=== PATIENT | female | born 1935 | race Hispanic/Latino ===

== ENCOUNTER 2018-10-30 17:03 | Inpatient (IN) | payer MEDICARE, OTHER ==
[~2018-10-30] VITALS: Ht 154.9 cm; Wt 57.3 kg
--- OUTSIDE RECORDS SUMMARY | 2018-10-30 17:06 | XMS REPORT | CCD ---
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
--- OUTSIDE RECORDS SUMMARY | 2018-10-30 17:06 | XMS REPORT | Summary of Care ---
Author Organization Unknown Address Unknown Phone Unavailable Encounter [facility] Encntr_chelle([facility]) [id number] Date(s): 03/05/14 - 03/05/14 [facility] Outpatient Imaging - [address] [address]- [place] Discharge Disposition: Home Physician Attending: Rafy Loya MD Reason for Visit [phone] - [place] [phone] - [facility] Problem List Condition Effective Dates Status Health Status Informant Arthritis(Confirmed) Resolved Epigastric Resolved pain(Confirmed) Hypertension(Confirm Resolved ed) Reflux(Confirmed) Resolved Allergies, Adverse Reactions, Alerts Substance Reaction Severity Status NKDA Active Medications No data available for this section Medications Administered During Your Visit No data available for this section Immunizations No data available for this section
--- OUTSIDE RECORDS SUMMARY | 2018-10-30 17:06 | XMS REPORT | CCD ---
Author Author Auto Generated Organization [facility] Outpatient Imaging [place] Address Unknown Phone Unavailable Care Team Providers Care Thread Dresser Name Role Phone Rafy Loya CP Allergies, Adverse Reactions, Alerts Substance Reaction Status NKDA Active
--- OUTSIDE RECORDS SUMMARY | 2018-10-30 17:06 | XMS REPORT | Summary of Care ---
Author Author [facility] Outpatient Imaging - [place] Organization [facility] Outpatient Imaging - [place] Address Unknown Phone Unavailable Encounter HQ Encntr_chelle([facility]) [id number] Date(s): 07/15/15 - 07/15/15 [facility] Outpatient Imaging - [place] [address] [place] [address]- [facility] [phone] Discharge Disposition: Home Attending Physician: Rafy Loya MD Vital Signs No data available for this section Problem List Condition Effective Dates Status Health Status Informant Arthritis(Confirmed) Resolved Epigastric Resolved pain(Confirmed) Hypertension(Confirm Resolved ed) Reflux(Confirmed) Resolved Allergies, Adverse Reactions, Alerts Substance Reaction Severity Status NKDA Active Medications No data available for this section Results No data available for this section Immunizations No data available for this section Procedures Procedure Date Related Diagnosis Body Site Breast biopsy and related procedures1 Cataract extraction2 Operation3 1right breast 2OU 3nasal sugery Social History No data available for this section Assessment and Plan No data available for this section
--- OUTSIDE RECORDS SUMMARY | 2018-10-30 17:06 | XMS REPORT | Summary of Care ---
Author Author [facility] Outpatient Imaging - [place] Organization [facility] Outpatient Imaging - [place] Address Unknown Phone Unavailable Encounter HQ Yvonnentr_chelle([facility]) [id number] Date(s): 10/27/18 - 10/27/18 [facility] Outpatient Imaging - [place] [address] [place] [phone] Discharge Disposition: Home or Self Care Attending Physician: Rafy Loya MD Referring Physician: Rafy Loya MD Vital Signs No [...] Procedures Procedure Date Related Diagnosis Body Site Status Breast biopsy and related procedures1 Completed Cataract extraction2 Completed Operation3 Completed 1right breast 2OU 3nasal sugery Social History No data available for this section Assessment and Plan No data available for this section
--- OUTSIDE RECORDS SUMMARY | 2018-10-30 17:06 | XMS REPORT | CCD ---
Author Author Auto Generated Organization [facility] Outpatient Imaging [place] Address Unknown Phone Unavailable Care Team Providers Care Manager Rfid Name Role Phone Rafy Loya CP Allergies, Adverse Reactions, Alerts Substance Reaction Status NKDA Active
--- OUTSIDE RECORDS SUMMARY | 2018-10-30 17:06 | XMS REPORT | Summary of Care ---
Author Organization Unknown Address Unknown Phone Unavailable Encounter [facility] Encntr_chelle([place]) [id number] Date(s): 02/25/15 - 02/25/15 [facility] Outpatient Imaging - [place] [address] [place] [address]- [facility] [phone] Discharge Disposition: Home Physician Attending: Rafy Loya MD Vital Signs No data [...]
--- OUTSIDE RECORDS SUMMARY | 2018-10-30 17:06 | XMS REPORT | CCD ---
Author Author Auto Generated Organization [facility] Outpatient Imaging [place] Address Unknown Phone Unavailable Care Team Providers Care Vp Emerging Media Name Role Phone Rafy Loya CP Allergies, Adverse Reactions, Alerts Substance Reaction Status NKDA Active
--- OUTSIDE RECORDS SUMMARY | 2018-10-30 17:06 | XMS REPORT | CCD ---
Author Author Auto Generated Organization [facility] Outpatient Imaging [place] Address Unknown Phone Unavailable Care Team Providers Care Block Engraver Name Role Phone Rafy Loya CP Allergies, Adverse Reactions, Alerts Substance Reaction Status NKDA Active
--- OUTSIDE RECORDS SUMMARY | 2018-10-30 17:06 | XMS REPORT | Continuity of Care Document ---
Author Author [facility] Interface Address Unknown Phone Unavailable Problems Problem Status Onset Date Classification Date Reported Comments Source R63.4 - ABNORMAL WEIGHT LOSS Active 07/09/2015 [facility] [place] V82.81 - SCREEN - OSTEOP Active 05/09/2015 [facility] [place] UNK Active 05/12/2013 [place]th[place] Resolved Problem 10/30/2018 [facility] [place] Epigastric pain Resolved Problem 10/30/2018 [facility] [place] Hypertension Resolved Problem 10/30/2018 [facility] [place] Reflux Resolved Problem 10/30/2018 [facility] [place] Medications Medication Details Route Status Patient Instructions Ordering Provider Order Date Source Allergies, Adverse Reactions, Alerts Substance Category Reaction Severity Reaction type Status Date Reported Comments Source Immunizations Immunization Date Given Site Status Last Updated Comments Source Results Order Name Results Value Reference Range Date Interpretation Comments Source Femur series DX Femur series DX EXAMINATION: 1. Right hip minimum 2 views 2. Right femur series HISTORY: M25.551 Pain in right hip; M79.604 Pain in right leg; R10.2 Pelvic and perineal pain; right hip and thigh pain; right hip arthritis; right knee arthritis FINDINGS: AP view of the pelvis, frontal and frog-leg lateral views of the right hip and 2 views of the right femur on multiple radiographs are performed without comparison. There are no fractures or dislocations. Both femoral heads are well-seated within the acetabula. There is mild to moderate bilateral hip osteoarthritis with asymmetric joint space narrowing. 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 The visualized sacral ala appear intact. There is multilevel degenerative changes of the lower lumbar spine partially visualized. There is no aggressive osteolytic or osteoblastic lesion of the right femur identified. There is severe lateral and patellofemoral compartment predominant, tricompartmental knee osteoarthritis with genu valgus alignment. IMPRESSION: 1. No acute fracture or dislocation of the pelvis, bilateral hips, or right femur identified. 2. Mild to moderate bilateral hip osteoarthritis. 3. Severe lateral and patellofemoral compartment predominant, tricompartmental right knee osteoarthritis with right genu valgus alignment. 4. Lower lumbar spondylosis. 10/27/2018 - - Read by: Jasmeet Shepard MD Dictated Date/time: 10/27/18 12:25 Electronically Signed by: Jasmeet Shepard MD 10/27/18 12:29 FINAL REPORT COSMO Torres Hip 2/3 views uni w pelvis DX Hip 2/3 views uni w pelvis DX EXAMINATION: 1. Right hip minimum 2 views 2. Right femur series HISTORY: M25.551 Pain in right hip; M79.604 Pain in right leg; R10.2 Pelvic and perineal pain; right hip and thigh pain; right hip arthritis; right knee arthritis FINDINGS: AP view of the pelvis, frontal and frog-leg lateral views of the right hip and 2 views of the right femur on multiple radiographs are performed without comparison. There are no fractures or dislocations. Both femoral heads are well-seated within the acetabula. There is mild to moderate bilateral hip osteoarthritis with asymmetric joint space narrowing. 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 The visualized sacral ala appear intact. There is multilevel degenerative changes of the lower lumbar spine partially visualized. There is no aggressive osteolytic or osteoblastic lesion of the right femur identified. There is severe lateral and patellofemoral compartment predominant, tricompartmental knee osteoarthritis with genu valgus alignment. IMPRESSION: 1. No acute fracture or dislocation of the pelvis, bilateral hips, or right femur identified. 2. Mild to moderate bilateral hip osteoarthritis. 3. Severe lateral and patellofemoral compartment predominant, tricompartmental right knee osteoarthritis with right genu valgus alignment. 4. Lower lumbar spondylosis. 10/27/2018 - - Read by: Jasmeet Shepard MD Dictated Date/time: 10/27/18 12:25 Electronically Signed by: Jasmeet Shepard MD 10/27/18 12:29 FINAL REPORT MYRON Torres Bone Density DXA [employer] MA Bone Density DXA [employer] MA - Bone Density DXA [employer] MA BONE DENSITY EVALUATION: 12/13/2015 CLINICAL DATA: Post menopausal. FINDINGS: Bone density evaluation was performed 12/13/2015 on the AP L1-L2 region of spine using a Hologic unit. The BMD average for the exam is 0.777 g/cm2. The T-score is -1.80 and the Z-score is 0.60. This matches the World Health Organization's criteria for osteopenia and places the patient at a medium risk for fracture. An additional bone density evaluation was performed 12/13/2015 on the right femur neck using a Hologic unit. The BMD average for the exam is 0.671 g/cm2. The T-score is -1.60 and the Z-score is 0.50. This matches the World Health Organization's criteria for osteopenia and places the patient at a medium risk for fracture. An additional bone density evaluation was performed 12/13/2015 on the right hip using a Hologic unit. The BMD average for the exam is 0.734 g/cm2. The T-score is -1.70 and the Z-score is 0.30. This matches the World Health Organization's criteria for osteopenia and places the patient at a medium risk for fracture. An additional bone density evaluation was performed 12/13/2015 on the left femur neck using a Hologic unit. The BMD average for the exam is 0.638 g/cm2. The T- score is -1.90 and the Z-score is 0.20. This matches the World Health Organization's criteria for osteopenia and places the patient at a medium risk for fracture. An additional bone density evaluation was performed 12/13/2015 on the left hip using a Hologic unit. The BMD average for the exam is 0.707 g/cm2. The T-score is -1.90 and the Z-score is 0.10. This matches the World Health Organization's criteria for osteopenia and places the patient at a medium risk for fracture. IMPRESSION: OSTEOPENIA Patient is at medium risk for fracture. This exam was dictated and interpreted by [id number] for COS[facility] Torres. Daquan Zhang M.D., cm/betty:12/16/2015 12:44:20 Low Pressure Boiler Tender: Marina COVARRUBIAS)(Lillie), [facility] 12/13/2015 - - Read by: Maged Jacobs MD Dictated Date/time: 12/16/15 12:44 Electronically Signed by: Maged Jacobs MD 12/16/15 12:44 FINAL REPORT MH MYRON Dowda Abdomen w/wo IV contrast CT Abdomen w/wo IV contrast CT CT ABDOMEN WITH CONTRAST HISTORY: 80 year female with weight loss. PROCEDURE: CT scan of the abdomen with contrast was done. Creatinine level was 0.8 mg/dl and eGFR was 71 ml/min. Dilute oral and IV contrast, 100 cc Omnipaque 300 used. Postcontrast and delayed series were obtained with coronal and sagittal reformats. The CT dose was 1083 mGy/cm. Comparison: 07/27/2011. Abdomen findings: The bases of both lung appear normal. The liver has normal morphology and homogeneous attenuation.The gallbladder has normal morphology. The pancreas has normal attenuation and dimensions. The spleen has normal volume and expected enhancement. The stomach, duodenum, small bowel, appendiceal region and colon are normal. Kidneys in contrast and delayed phase appear normal, no hydronephrosis or lithiasis seen. The left kidney is the lateral simple cortical cyst 4.3 x 3.8 cm, prior maximal dimension was 3.6 cm. The adrenals have normal morphology. The abdominal aorta and iliac vessels appear normal in caliber. There is no retroperitoneal adenopathy. Osseous structures has osteoarthritic changes with disc disease more significant at L2-L3. There is grade 1 retrolisthesis of L2 on L3 IMPRESSION: No acute or enhancing abdominal abnormality noted. Liver, gallbladder and pancreas are unremarkable. Left renal simple 4.3 cm simple cyst, similar compared to prior Osteoarthritis and disc disease throughout the lumbar spine. 07/15/2015 - - Read by: Raffaele Roa MD Dictated Date/time: 07/15/15 13:23 Electronically Signed by: Raffaele Roa 07/15/15 13:41 FINAL REPORT MYRON Torres Digital Mammo Screening Mohinder MA Digital Mammo Screening Mohinder MA - DIGITAL MAMMO SCREENING MOHINDER MA BILATERAL DIGITAL SCREENING MAMMOGRAM WITH CAD: 02/25/2015 CLINICAL: Routine. Current study was evaluated with a Computer Aided Detection (CAD) system. Comparison is made to exam dated: 03/05/2014 mammogram - [facility]. There are scattered fibroglandular densities in both breasts. No significant masses, calcifications, or other findings are seen in either breast. There has been no significant interval change. IMPRESSION: NEGATIVE There is no mammographic evidence of malignancy. A 1 year screening mammogram is recommended. Dr. Wilton Zuñiga M.D. eoc/penrad:02/26/2015 08:45:33 Low Pressure Boiler Tender: Marina Hernandez RT(R)(Lillie), [facility] This exam was dictated and interpreted by [id number] for COSMO Vega. letter sent: Normal exam Mammogram BI-RADS: 1 Negative 02/25/2015 - - Read by: Wilton Zuñiga MD Dictated Date/time: 02/26/15 08:45 Electronically Signed by: Wilton Zuñiga MD 02/26/15 08:45 FINAL REPORT COSMO [place] Breast US Breast US - DIGITAL MAMMO DX MOHINDER MA - BREAST US/L BILATERAL DIGITAL DIAGNOSTIC MAMMOGRAM WITH CAD AND TARGETED LEFT ULTRASOUND: 03/05/2014 CLINICAL: Mammographic Abnormality. Current study was evaluated with a Computer Aided Detection (CAD) system. Comparison is made to exams dated: 06/13/2013 ultrasound biopsy, 06/13/2013 aspiration, 06/13/2013 aspiration - [facility], 05/17/2013 ultrasound, 05/17/2013 mammogram and 04/12/2013 mammogram - [facility]. There are scattered fibroglandular densities in both breasts. The mass in the right breast 2 o'clock middle depth is no longer seen. This is demonstrated by prior aspiration. There is a 6 mm oval cyst with a circumscribed margin in the left breast at 12 o'clock middle depth. Targeted ultrasound demonstrates a subcentimeter oval cyst at 12 o'clock middle depth. This oval cyst is anechoic. No other significant masses or calcifications are seen in either breast on the mammogram or targeted ultrasound. IMPRESSION: BENIGN, TARGETED ULTRASOUND BENIGN The 6 mm oval cyst in the left breast at 12 o'clock middle depth is benign. Biopsy clip is seen within the right breast 2 o'clock position. The aspirated cyst is no longer visualized. There is no mammographic or targeted sonographic evidence of malignancy. A screening mammogram in one year is recommended. Dr. Wm Wright M.D. sl/:03/05/2014 12:16:12 Low Pressure Boiler Tender: Yuliana COVARRUBIAS)(Lillie), [facility] This exam was dictated and interpreted by [id number] for COSMO Torres. letter sent: Bilateral Benign Mammogram BI-RADS: 2 Benign Ultrasound BI-RADS: 2 Benign 03/05/2014 - - Read by: Wm Wright MD Dictated Date/time: 03/05/14 12:16 Electronically Signed by: Wm Wright MD 03/05/14 12:16 FINAL REPORT COSMO Torres Digital Mammo DX Mohinder MA Digital Mammo DX Mohinder MA - DIGITAL MAMMO DX MOHINDER MA - BREAST US/L BILATERAL DIGITAL DIAGNOSTIC MAMMOGRAM WITH CAD AND TARGETED LEFT ULTRASOUND: 03/05/2014 CLINICAL: Mammographic Abnormality. Current study was evaluated with a Computer Aided Detection (CAD) system. Comparison is made to exams dated: 06/13/2013 ultrasound biopsy, 06/13/2013 aspiration, 06/13/2013 aspiration - [facility], 05/17/2013 ultrasound, 05/17/2013 mammogram and 04/12/2013 mammogram - [facility]. There are scattered fibroglandular densities in both breasts. The mass in the right breast 2 o'clock middle depth is no longer seen. This is demonstrated by prior aspiration. There is a 6 mm oval cyst with a circumscribed margin in the left breast at 12 o'clock middle depth. Targeted ultrasound demonstrates a subcentimeter oval cyst at 12 o'clock middle depth. This oval cyst is anechoic. No other significant masses or calcifications are seen in either breast on the mammogram or targeted ultrasound. IMPRESSION: BENIGN, TARGETED ULTRASOUND BENIGN The 6 mm oval cyst in the left breast at 12 o'clock middle depth is benign. Biopsy clip is seen within the right breast 2 o'clock position. The aspirated cyst is no longer visualized. There is no mammographic or targeted sonographic evidence of malignancy. A screening mammogram in one year is recommended. Dr. Wm Wright M.D. sl/:03/05/2014 12:16:12 Low Pressure Boiler Tender: Yuliana MEJIAS(Adriana)(Lillie), [facility] This exam was dictated and interpreted by [id number] for COS[facility] Torres. letter sent: Bilateral Benign Mammogram BI-RADS: 2 Benign Ultrasound BI-RADS: 2 Benign 03/05/2014 - - Read by: Wm Wright MD Dictated Date/time: 03/05/14 12:16 Electronically Signed by: Wm Wright MD 03/05/14 12:16 FINAL REPORT MYRON Torres US Guided Needle Core BX Uni Mammo Clips MA US Guided Needle Core BX Uni Mammo Clips MA - US GUIDED NEEDLE CORE BX UNI MAMMO CLIPS MA/R ULTRASOUND GUIDED BIOPSY RIGHT BREAST WITH MARKING DEVICE INSERTED AND POST DIGITAL MAMMOGRAPHIC IMAGIN06/13/2013 CLINICAL: Abn Mamma. Correlation is made to exams dated: 05/17/2013 ultrasound, 05/17/2013 mammogram, 04/12/2013 mammogram - [facility] and 07/17/2008 mammogram - [facility]. An ultrasound guided biopsy using real-time ultrasound was performed for the oval cystic mass located in the right breast at 2 o'clock middle depth 6 cm from the nipple. This was described on the previous mammography and ultrasound reports. The skin was prepped in the usual manner. Local anesthetic was administered to the access site. The abnormality was approached from the lateral aspect. A 14 gauge biopsy needle was placed adjacent to the abnormality under ultrasound guidance. Once the needle was documented to be in the correct location, three cores were obtained using an Achieve automated firing device. A titanium clip was inserted into the biopsy cavity. A skin adhesive and a sterile dressing were applied to the access site. Post procedure digital mammographic imaging demonstrates the clip at the targeted area. The specimens were sent to the laboratory for pathological analysis. The lesion disappeared after the core biopsy, suggesting cystic nature of this lesion. IMPRESSION: ULTRASOUND GUIDED BIOPSY BENIGN Ultrasound guided biopsy of the cystic mass in the right breast at 2 o'clock middle depth 6 cm from the nipple was successful with no apparent post procedure complications. Pathology indicates benign apocrine metaplasia (AM), cyst (BC) and usual ductal hyperplasia (DHU). Pathology results are concordant with mammography and ultrasound findings. A follow-up mammogram and an ultrasound in 6 months is recommended to demonstrate stability. Kalpana Godoy M.D. Additional Observers: Nivia Banegas M.D., David plunkett/betty:06/14/2013 16:22:11 Low Pressure Boiler Tender: Olivia Cox [facility] This exam was dictated and interpreted by [id number] for [facility]. letter sent: Post Bx Results 06/13/2013 - - Read by: Kalpana Godoy Dictated Date/time: 06/14/13 16:22 Electronically Signed by: Kalpana Godoy MD PHD 06/14/13 16:22 FINAL REPORT MYRON Beatty US Guided Cyst Aspiration Uni MA US Guided Cyst Aspiration Uni MA - US GUIDED CYST ASPIRATION UNI MA/R ULTRASOUND GUIDED ASPIRATION RIGHT BREAST: 06/13/2013 CLINICAL: 793.80 Abnormal Mammogram, Unspecified. Correlation is made to exams dated: 05/17/2013 ultrasound, 05/17/2013 mammogram, 04/12/2013 mammogram - [facility] and 07/17/2008 mammogram - [facility]. An aspiration was performed for the 9 mm oval cyst located in the right breast at 2 o'clock middle depth 6 cm from the nipple. This was described on the previous mammography and ultrasound reports. The skin was prepped in the usual manner. Local anesthetic was administered to the access site. The abnormality was approached from the lateral aspect. A 18 gauge needle was percutaneously placed into the abnormality under ultrasound guidance. Once the needle was documented to be in the correct location, bloody fluid was aspirated. This cyst did not resolve after the aspiration and core biopsy was performed next. Please see seperate report. IMPRESSION: ASPIRATION BENIGN Aspiration of the 9 mm cyst in the right breast middle depth was successful with no apparent post procedure complications. Pathology indicates debris only and unsatisfactory sample. Core biopsy performed following aspiration showed benign cyst, which is concordant with mammography and ultrasound findings. Please see core biopsy report. A follow-up mammogram and an ultrasound in 6 months is recommended to demonstrate stability. Kalpana Godoy M.D. hh/:06/16/2013 10:56:27 Low Pressure Boiler Tender: Olivia Cox [facility] This exam was dictated and interpreted by [id number] for [facility]. letter sent: Post Bx Results 06/13/2013 - - Read by: Kalpana Godoy Dictated Date/time: 06/16/13 10:56 Electronically Signed by: Kalpana Godoy MD PHD 06/16/13 10:56 FINAL REPORT MYRON Beatty US Guided Cyst Aspiration Uni MA US Guided Cyst Aspiration Uni MA - US GUIDED CYST ASPIRATION UNI MA/R ULTRASOUND GUIDED ASPIRATION RIGHT BREAST: 06/13/2013 CLINICAL: 793.80 Abnormal Mammogram, Unspecified. Correlation is made to exams dated: 05/17/2013 ultrasound, 05/17/2013 mammogram, 04/12/2013 mammogram - [facility] and 07/17/2008 mammogram - [facility]. An aspiration was performed for the 8 mm oval cyst located in the right breast at 4 o'clock posterior depth 7 cm from the nipple. This was described on the previous mammography and ultrasound reports. The skin was prepped in the usual manner. Local anesthetic was administered to the access site. The abnormality was approached from the lateral aspect. A 20 gauge needle was percutaneously pl aced into the abnormality under ultrasound guidance. Once the needle was documented to be in the correct location, serosanguin fluid was aspirated. A sterile dressing was applied to the access site. The aspirated fluid was sent for cytological analysis. IMPRESSION: ASPIRATION BENIGN Aspiration of the 8 mm cyst in the right breast posterior depth was successful with no apparent post procedure complications. Pathology indicates benign cyst (BC). Pathology results are concordant with mammography and ultrasound findings. A follow-up mammogram and an ultrasound in 6 months is recommended to demonstrate stability. Kalpana plunkett/betty:06/16/2013 10:40:20 Low Pressure Boiler Tender: Olivia Cox [facility] This exam was dictated and interpreted by [id number] for [facility]. letter sent: Post Bx Results 06/13/2013 - - Read by: Kalpana Godoy Dictated Date/time: 06/16/13 10:40 Electronically Signed by: Kalpana Godoy MD PHD 06/16/13 10:40 [facility] Vital Sign[facility] Vital Sign Value Date Comments Source Encounters Location Location Details Encounter Type Encounter Number Reason For Visit Attending Provider ADM Date DC Date Status Source [facility] [place] [facility] [id number] Rafy Cruz 03/05/2014 03/06/2014 [facility] [place] [facility] [place] [facility] [id number] Rafy Cruz 02/25/2015 02/26/2015 [facility] [place] [facility] [place] [facility] [id number] Rafy Cruz 07/15/2015 07/16/2015 [facility] [place] [facility] [place] [facility] [id number] Rafy Cruz 12/13/2015 12/14/2015 [facility] [place] [facility] [place] [facility] [id number] Rafy Cruz 10/27/2018 10/28/2018 [facility] [place] [facility] [id number] [facility] Procedures Procedure Code Date Perfomer Comments Source Breast biopsy and related procedures<sup>1</sup> [id number] right breast [facility] [place] Cataract extraction<sup>2</sup> [id number] OU [facility] [place] Operation<sup>3</sup> [id number] nasal sugery [facility] [place]
--- OUTSIDE RECORDS SUMMARY | 2018-10-30 17:06 | XMS REPORT | Summary of Care ---
Author Author [facility] [place] Organization [facility] [place] Address Unknown Phone Unavailable Encounter HQ Encntr_aliquinn(FIN) [id number] Date(s): 12/13/15 - 12/13/15 [facility] [place] [address] [place] [address]- [facility] [phone] Discharge Disposition: Home Attending Physician: Rafy Loya [...]
[2018-10-30] MEDS ORDERED: SODIUM CHLORIDE 0.9% 1000ML 1,000 ML IV STA (17:29)
[2018-10-30] MEDS ORDERED: ONDANSETRON HCL INJ 2MG/ML 2ML 2 MG/ML VIAL IV NR (17:30)
[2018-10-30] MEDS ORDERED: HYOSCYAMINE 0.125 MG TAB PO NR (17:30)
[2018-10-30 18:48] LABS: BASOPHILS # (AUTO) 0.1 (0.0-0.1); BASOPHILS % 0.5 % (0.0-1.0); EOSINOPHILS # (AUTO) 0.2 (0.0-0.4); EOSINOPHILS % 2.5 % (0.0-6.0); HEMATOCRIT 34.5 % (34.2-44.1); HEMOGLOBIN 11.4 g/dL (12.0-16.0); LYMPHOCYTES # (AUTO) 1.8 (1.0-3.2); LYMPHOCYTES % 19.6 % (18.0-39.1); MEAN CORPUSCULAR VOLUME 96.9 fL (81-99); MONOCYTES # (AUTO) 0.7 (0.2-0.8); MONOCYTES % 7.5 % (4.4-11.3); NEUTROPHILS # (AUTO) 6.5 (2.1-6.9); NEUTROPHILS % 69.5 % (38.7-80.0); PLATELET COUNT 202 x10e3/uL (140-360); RED BLOOD COUNT 3.56 x10e6/uL (3.6-5.1); RED CELL DISTRIBUTION WIDTH 12.5 % (11.7-14.4)
[2018-10-30 19:01] LABS: INR 1.01; PROTHROMBIN TIME 14.2 seconds (11.9-14.5)
[2018-10-30 19:02] LABS: PARTIAL THROMBOPLASTIN TIME 30.1 seconds (23.8-35.5)
[2018-10-30 19:05] LABS: ALANINE AMINOTRANSFERASE 6 IU/L (0-55); ALBUMIN 3.8 g/dL (3.5-5.0); ALBUMIN/GLOBULIN RATIO 0.9 (0.8-2.0); ALKALINE PHOSPHATASE 68 IU/L (40-150); BLOOD UREA NITROGEN 25 mg/dL (7-26); BUN/CREATININE RATIO 30 (6-25); CALCIUM 9.7 mg/dL (8.4-10.2); CARBON DIOXIDE 25 mmol/L (22-29); CHLORIDE 105 mmol/L (98-107); CREATINE KINASE 242 IU/L (29-168); CREATININE, SERUM 0.83 mg/dL (0.57-1.11); EST GLOMERULAR FILTRATION RATE > 60 ML/MIN (60-); GLUCOSE 98 mg/dL (74-118); SODIUM 141 mmol/L (136-145)
--- NOTE | 2018-10-30 19:21 | Diagnostic Imaging Report ---
Exam: KUB - 3 views Clinical History: Abdominal pain. Comparison: None. Findings: There is abundant stool throughout the colon. The rectum is dilated with stool measuring up to 8.7 cm. Nonobstructive bowel gas pattern. No acute osseous abnormality. Moderate degenerative changes of the lateral hips and pubic symphysis. Diffuse osteopenia. Impression: Abundant stool in the colon, with rectal dilatation measuring up to 8.7 cm suggestive of fecal impaction. Nonobstructive bowel gas pattern. Signed by: Dr. Jose Juan Kingston MD on 10/30/2018 7:18 PM
[2018-10-30] MEDS ORDERED: IOPAMIDOL 370 MG/ML 200 ML INFUS..BTL INJ ONE (19:46)
[2018-10-30] MEDS ORDERED: SODIUM CHLORIDE 0.9% 50ML 50 ML ONE (19:46)
[2018-10-30] MEDS ORDERED: SODIUM CHLORIDE 0.9% 1000ML 1,000 ML IV ONE (20:15)
[2018-10-30] MEDS ORDERED: ONDANSETRON HCL INJ 2MG/ML 2ML 2 MG/ML VIAL IV PRN (20:15)
--- OUTSIDE RECORDS SUMMARY | 2018-10-30 21:29 | XMS REPORT ---
Author Author [facility] Address Unknown Phone Unavailable Care Team Providers Care Solidworks Drafter Name Role Phone Alejandro FAULKNER Unavailable Unavailable Problems This patient has no known problems. Allergies, Adverse Reactions, Alerts This patient has no known allergies or adverse reactions. Medications This patient has no known medications. Results Test Description Test Time Test Comments Text Results Atomic Results Result Comments ABDOMEN 2 VIEW 2018-10-30 19:15:00 [facility] [address] [address] Patient Name: EDDI LOYA MR #: [id number] : 1935 Age/Sex: 83/F Req #: [id number] Adm Physician: Ordered by: MARIA ESTHER GARVEY NP Report #: [id number] Location: ER Room/Bed: Procedure: [id number] DX/ABDOMEN 2 VIEW Exam Date: 10/30/18 Exam Time: 1845 REPORT STATUS: Signed Exam: KUB - 3 views Clinical History: Abdominal pain. Comparison: None. Findings: There is abundant stool throughout the colon. The rectum is dilated with stool measuring up to 8.7 cm. Nonobstructive bowel gas pattern. No acute osseous abnormality. Moderate degenerative changes of the lateral hips and pubic symphysis. Diffuse osteopenia. Impression: Abundant stool in the colon, with rectal dilatation measuring up to 8.7 cm suggestive of fecal impaction. Nonobstructive bowel gas pattern. Signed by: Dr. Shaq Lopez MD on 10/30/2018 7:18 PM Dictated By: SHAQ LOPEZ MD 17 Transcribed By: CAPRICE on 10/30/181917 COPY TO: MARIA ESTHER GARVEY NP
[2018-10-30] MEDS: CEFTRIAXONE SOD 1 GM/NS 50 ML 50 ML IV SCH (21:39)
[2018-10-30] MEDS ORDERED: MINERAL OIL 132 ML BTL PR ONE (21:45)
[2018-10-30] MEDS ORDERED: MINERAL OIL 132 ML BTL PR PRN (21:45)
--- NOTE | 2018-10-30 21:55 | Diagnostic Imaging Report ---
EXAM: CT Abdomen and Pelvis WITH contrast INDICATION: ^ABD PAIN, DIARRHEA ^[id number] ^2009 COMPARISON: Same day abdominal x-ray. TECHNIQUE: Abdomen and pelvis were scanned utilizing a multidetector helical scanner from the lung base to the pubic symphysis after administration of IV contrast. Coronal and sagittal reformations were obtained. Dose modulation, iterative reconstruction, and/or weight based adjustment of the mA/kV was utilized to reduce the radiation dose to as low as reasonably achievable. Routine protocol was performed. Scan was performed when during portal venous phase. IV CONTRAST: 100 mL of Isovue-370 ORAL CONTRAST: Water COMPLICATIONS: None RADIATION DOSE: Total DLP: 178.12 mGy*cm Estimated effective dose: (DLP x 0.015 x size factor) mSv CTDIvol has been reviewed. It is below the limits set by the Radiation Protocol Committee (RPC). FINDINGS: LINES and TUBES: None. LOWER THORAX: Cardiomegaly. HEPATOBILIARY: No focal hepatic lesions. No biliary ductal dilation. GALLBLADDER: No radio-opaque stones or sludge. No wall thickening. SPLEEN: No splenomegaly. PANCREAS: No focal masses or ductal dilatation. ADRENALS: No adrenal nodules KIDNEYS/URETERS: Kidneys enhance symmetrically. No hydronephrosis. No renal mass. 4.9 cm left renal midpole cyst. Adjacent subcentimeter hypodensity, likely a cyst as well. No stones. GI TRACT: No abnormal distention or evidence of bowel obstruction. Rectal fecal impaction with mild wall thickening. There is large amount of stool throughout the rest of the colon. Appendix is not visualized. PELVIC ORGANS/BLADDER: Unremarkable. LYMPH NODES: No lymphadenopathy. VESSELS: Unremarkable. PERITONEUM / RETROPERITONEUM: No free air or fluid. BONES: Generalized demineralization. Grade 1 retrolisthesis of L5 in relation to L4. SOFT TISSUES: Unremarkable. IMPRESSION: 1. Constipation and rectal fecal impaction. 2. Mild rectal wall thickening, could represent proctitis. 3. Left renal cysts. Signed by: Dr. Christian Hyde MD on 10/30/2018 9:52 PM
[2018-10-30] MEDS ORDERED: SODIUM CHLORIDE 0.9% 1000ML 1,000 ML ONE (21:57)
[2018-10-30 22:00] LABS: CLARITY,URINE HAZY (CLEAR); COLOR,URINE YELLOW (YELLOW); LEUKOCYTE ESTERASE ,URINE TRACE (NEGATIVE); NITRITE,URINE NEGATIVE (NEGATIVE)
[2018-10-30 22:01] LABS: BILIRUBIN,URINE NEGATIVE (NEGATIVE); KETONES,URINE NEGATIVE (NEGATIVE); PROTEIN,URINE DIPSTICK NEGATIVE (NEGATIVE); URINE UROBILINOGEN 0.2 mg/dL (0.2 - 1)
[2018-10-30] MEDS ORDERED: LACTULOSE SYRUP 20 GM/30 ML UDC PO PRN (22:15)
[2018-10-30 22:30] VITALS: BP 145/67
--- NOTE | 2018-10-30 22:40 | NUR ---
RECEIVED REPORT FROM ELLIOTT IGLESIAS NURSE. PATIENT IN NO PAIN OR DISTRESS. SON IS AT THE BEDSIDE. CALL LIGHT WITHIN REACH. PATIENT HAD A BOWEL MOVEMENT SO HISTOLOGY TECH AND I CLEANED PATIENT.
[2018-10-30 22:41] LABS: RBC,URINE 0-5 /HPF (0-5)
[2018-10-30 22:42] LABS: BACTERIA,URINE FEW /HPF; EPITHELIAL CELLS,URINE FEW /LPF
[2018-10-30 23:00] VITALS: BP 145/67
[2018-10-31] VITALS (7 sets, daily range): BP systolic 127–152; BP diastolic 63–73
[2018-10-31 03:27] LABS: CREATINE KINASE MB 1.4 ng/mL (0-5.0)
--- NOTE | 2018-10-31 05:33 | NUR ---
Patient had two moderate amounts of liquid diarrhea. LOOPER OPERATOR and I cleaned the patient
[2018-10-31 05:57] LABS: BASOPHILS # (AUTO) 0.1 (0.0-0.1); BASOPHILS % 0.7 % (0.0-1.0); EOSINOPHILS # (AUTO) 0.1 (0.0-0.4); EOSINOPHILS % 1.5 % (0.0-6.0); HEMATOCRIT 30.3 % (34.2-44.1); HEMOGLOBIN 9.9 g/dL (12.0-16.0); LYMPHOCYTES # (AUTO) 1.6 (1.0-3.2); LYMPHOCYTES % 18.9 % (18.0-39.1); MEAN CORPUSCULAR HEMOGLOBIN 31.8 pg (28-32); MEAN CORPUSCULAR HGB CONC 32.7 g/dL (31-35); MEAN CORPUSCULAR VOLUME 97.4 fL (81-99); MONOCYTES # (AUTO) 0.6 (0.2-0.8); MONOCYTES % 6.7 % (4.4-11.3); NEUTROPHILS # (AUTO) 6.2 (2.1-6.9); NEUTROPHILS % 72.1 % (38.7-80.0); PLATELET COUNT 182 x10e3/uL (140-360); RED BLOOD COUNT 3.11 x10e6/uL (3.6-5.1)
[2018-10-31 06:31] LABS: CREATINE KINASE MB 1.5 ng/mL (0-5.0)
[2018-10-31 06:56] LABS: ALANINE AMINOTRANSFERASE 11 IU/L (0-55); ALBUMIN 3.2 g/dL (3.5-5.0); ALBUMIN/GLOBULIN RATIO 1.1 (0.8-2.0); ALKALINE PHOSPHATASE 61 IU/L (40-150); ANION GAP 11.2 mmol/L (8-16); BLOOD UREA NITROGEN 18 mg/dL (7-26); BUN/CREATININE RATIO 25 (6-25); CALCIUM 8.8 mg/dL (8.4-10.2); CARBON DIOXIDE 23 mmol/L (22-29); CHLORIDE 106 mmol/L (98-107); CREATININE, SERUM 0.71 mg/dL (0.57-1.11); EST GLOMERULAR FILTRATION RATE > 60 ML/MIN (60-); GLUCOSE 90 mg/dL (74-118); POTASSIUM 3.2 mmol/L (3.5-5.1); SODIUM 137 mmol/L (136-145)
[2018-10-31] MEDS ORDERED: LACTULOSE SYRUP 20 GM/30 ML UDC PO PRN (07:15)
--- NOTE | 2018-10-31 07:22 | NUR ---
Report given to oncoming nurse. Patient in no pain or distress. Call light within reach. Family member at bedside.
[2018-10-31] MEDS ORDERED: ONDANSETRON HCL INJ 2MG/ML 2ML 2 MG/ML VIAL IV PRN (07:30)
[2018-10-31] MEDS ORDERED: HYDRALAZINE HCL 20 MG/ML VIAL IV PRN (07:30)
[2018-10-31] MEDS: PANTOPRAZOLE SOD 40 MG TABEC PO SCH (07:30)
[2018-10-31] MEDS: CARBIDOPA/LEVODOPA 25/250 TAB PO SCH ×3 (09:00→20:35)
[2018-10-31] MEDS: POLYETHYLENE GLYCOL 3350 17 GM PACK PO SCH ×2 (09:00→17:00)
--- NOTE | 2018-10-31 09:07 | NUR ---
Notified Deborah LANDAVERDE regarding potassium level of 3.2
[2018-10-31] MEDS ORDERED: POTASSIUM CHLORIDE 20 MEQ TAB CR PO ONE (09:30)
[2018-10-31] MEDS: METOPROLOL TARTRATE 25 MG TAB PO SCH ×2 (10:15→17:00)
[2018-10-31] MEDS: SODIUM CHLORIDE 0.9% 1000ML 1,000 ML IV SCH ×2 (10:40→11:20)
--- NOTE | 2018-10-31 10:53 | NUR ---
SOCIAL WORK INITIAL ASSESSMENT Shirt Hemmer to bedside to discuss plan of care with patient/family. CM/SW role and care transitions discussed. Anticipated discharge plan discussed along with duration of care. CM/SW discussed patients right to make decisions in care. CM/SW work hours given. Patient lives: IN HOUSE WITH DAUGHTER Admit/Transfer: VIA ED POA/Emergency contact: KAYLIN [phone] Current/Previous Home Health: NONE PCP/Follow-up Care: VINCENZO Current/Previous DME: NONE Other Services: NONE Employment Status: RETIRED Areas of Concerns: NONE Referral Needs: NONE Education Needs: NONE IMM/LOPEZ given and signed (if applicable): UPON ADMISSION Goal for discharge: RETURN HOME WITH FAMILY CM/SW left business card at the bedside with contact information. Name and number was also written on the patients whiteboard. Patient verbalized understanding of discussion. CM will follow-up with ongoing discharge and transition of care needs.
[2018-10-31 14:56] LABS: CREATINE KINASE MB 1.2 ng/mL (0-5.0)
--- NOTE | 2018-10-31 15:19 | NUR ---
PER GRAND DAUGHTER AGUILAR ASHFORD [phone], THE FAMILY IS ALREADY SPEAKING WITH [facility] FOR CARE HOME PLACEMENT. SHE IS AWARE THE PT MAY HAVE TO GO MEDICAID PENDING, BUT WOULD LIKE IF SHE CAN GET SKILLED TO GET IN. IF PT MEETS CRITERIA THEY WANT [place] DUE TO GRANDFATHER WAS THERE AND THE ENTIRE FAMILY LIVES CLOSE AND WILL BE ABLE TO VISIT AT FACILITY. IF GOING TO [place] SHE IS MEDICARE AND WILL NEED 3 MIDNIGHT PRIOR STAY TO QUALIFY.
--- NOTE | 2018-10-31 15:24 | NUR ---
Nutrition Screen Note RD Recommendation for Physician: -Rec to initiate GI soft diet as medically appropriate -Consider Ensure Compact BID if PO is poor on regular diet -The patient meets criteria for MILD protein-calorie malnutrition. Plan of Care: RD following, monitoring for tolerance and adequacy Nutrition reason for involvement: Nutrition Risk Trigger MST Primary Diagnose(s): abdominal pain, diarrhea PMH: No H&P in chart Ht: 61in Wt: 112.56lb BMI: 21.3kg/m2 IBW: 105lb RD Assessment: (10/31) Chart reviewed. Labs and meds reviewed. 83yo F, who was admitted for abdominal pain and diarrhea x [address] abd/ pel showed constipation and rectal fecal impaction. Visited pt in the room. 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 Unknown weight loss. For today, pt denied any nausea or vomiting. No chewing or swallowing difficulty noted. Currently NPO. Will continue to monitor and follow. Please consult as needed. Current Diet: NPO Malnutrition Evaluation (10/31/2018) The patient meets criteria for MILD protein-calorie malnutrition. Energy intake: <75% of estimated energy requirements for >7 days Weight loss: Unknown per family Fat loss: Mild some clavicle protrusion Muscle loss: Mild slight temporal depression Supporting Evidence: Fluid accumulation: unable to evaluate Functional Status: no changes Diet Education Needs Assessment: Diet education not indicated. Nutrition Care Level: mod Signed: Adamaris Smith, MS, RD, LD
[2018-10-31] MEDS ORDERED: PEG (High)/E-LYTE SOLN 4,000 ML BTL PO ONE (15:45)
--- NOTE | 2018-10-31 19:05 | NUR ---
Received report from previous nurse. Patient is in no pain or distress. Telemonitor was placed on patient and patient is sinus rhythm. call light within reach.
[2018-10-31] MEDS: CEFTRIAXONE SOD 1 GM/NS 50 ML 50 ML IV SCH (20:35)
[2018-10-31] MEDS: ATORVASTATIN 40 MG TAB PO SCH (20:35)
[2018-11-01] VITALS (7 sets, daily range): BP systolic 124–185; BP diastolic 59–77
[2018-11-01] MEDS ORDERED: BISACODYL 5 MG TAB EC PO SCH (02:30)
[2018-11-01] MEDS ORDERED: BISACODYL 5 MG TAB EC PO ONE ×2 (04:00→04:30)
[2018-11-01 04:20] LABS: BASOPHILS % 0.4 % (0.0-1.0); EOSINOPHILS # (AUTO) 0.1 (0.0-0.4); EOSINOPHILS % 1.1 % (0.0-6.0); HEMATOCRIT 29.7 % (34.2-44.1); HEMOGLOBIN 10.1 g/dL (12.0-16.0); LYMPHOCYTES # (AUTO) 1.6 (1.0-3.2); LYMPHOCYTES % 15.9 % (18.0-39.1); MEAN CORPUSCULAR HEMOGLOBIN 32.7 pg (28-32); MEAN CORPUSCULAR VOLUME 96.1 fL (81-99); MONOCYTES # (AUTO) 0.7 (0.2-0.8); MONOCYTES % 7.1 % (4.4-11.3); NEUTROPHILS # (AUTO) 7.6 (2.1-6.9); NEUTROPHILS % 75.2 % (38.7-80.0); PLATELET COUNT 192 x10e3/uL (140-360); RED BLOOD COUNT 3.09 x10e6/uL (3.6-5.1); RED CELL DISTRIBUTION WIDTH 12.3 % (11.7-14.4)
[2018-11-01 04:32] LABS: ALBUMIN 3.2 g/dL (3.5-5.0); ALKALINE PHOSPHATASE 67 IU/L (40-150); ANION GAP 14.6 mmol/L (8-16); BILIRUBIN,DIRECT 0.4 mg/dL (0.0-0.5); BLOOD UREA NITROGEN 16 mg/dL (7-26); BUN/CREATININE RATIO 22 (6-25); CARBON DIOXIDE 22 mmol/L (22-29); CHLORIDE 107 mmol/L (98-107); CREATININE, SERUM 0.73 mg/dL (0.57-1.11); EST GLOMERULAR FILTRATION RATE > 60 ML/MIN (60-); GLUCOSE 70 mg/dL (74-118); MAGNESIUM 1.7 MG/DL (1.3-2.1); POTASSIUM 3.6 mmol/L (3.5-5.1); SODIUM 140 mmol/L (136-145)
[2018-11-01 04:41] LABS: ALANINE AMINOTRANSFERASE < 6 IU/L (0-55)
[2018-11-01 04:52] LABS: FREE T4 (FREE THYROXINE) 1.28 ng/dL (0.9-1.8); THYROID STIMULATING HORMONE 1.18 uIU/mL (0.350-4.940)
[2018-11-01 04:53] LABS: FERRITIN 91.4 ng/mL (4.63-204.00)
--- NOTE | 2018-11-01 04:54 | NUR ---
Patient had another bowel movement and finished half of the Colyte. Dr. Chanell Batista said if she finishes half Colyte do not give Citrate of Magnesia.
[2018-11-01] MEDS ORDERED: CITRATE OF MAGNESIA 300ML BOTTLE PO PRN (05:00)
[2018-11-01 05:15] LABS: FOLATE 14.4 ng/mL (7.0-15.4)
--- NOTE | 2018-11-01 07:04 | NUR ---
RECEIVED PATIENT RESTING IN BED. NO ACUTE DISTRESS NOTED. DAUGHTER AT BEDSIDE. CALL LIGHT WITHIN REACH. BED IN THE LOWEST POSITION.
--- NOTE | 2018-11-01 07:15 | NUR ---
Gave report to oncoming nurse. Patient in bed. Family at the bedside. Call light within reach. No pain or distress.
--- NOTE | 2018-11-01 07:54 | NUR ---
PAGED DR. Lillie BISHOP'S SERVICE TO GET ORDERS FOR PATIENT'S INFORM CONSENT FOR POSSIBLE COLONOSCOPY.
--- NOTE | 2018-11-01 08:40 | NUR ---
PATIENT IS NAUSEATED, REFUSING MIRALAX AT THIS TIME. SHE IS STILL TAKING GOLYTELY TO PREP FOR COLONOSCOPY.
[2018-11-01] MEDS: POLYETHYLENE GLYCOL 3350 17 GM PACK PO SCH ×2 (08:43→17:10)
[2018-11-01] MEDS: SODIUM CHLORIDE 0.9% 1000ML 1,000 ML IV SCH (08:50)
[2018-11-01] MEDS: PANTOPRAZOLE SOD 40 MG TABEC PO SCH (08:50)
[2018-11-01] MEDS: CARBIDOPA/LEVODOPA 25/250 TAB PO SCH ×3 (08:50→21:01)
[2018-11-01] MEDS: METOPROLOL TARTRATE 25 MG TAB PO SCH ×2 (08:50→17:10)
[2018-11-01] MEDS ORDERED: CITRATE OF MAGNESIA 300ML BOTTLE PO ONE (10:15)
--- NOTE | 2018-11-01 14:21 | NUR ---
PATIENT OFF UNIT FOR PROCEDURE AT THIS TIME.
--- NOTE | 2018-11-01 15:35 | NUR ---
PATIENT BACK TO UNIT AT THIS TIME. SHE IS IN STABLE CONDITION.
--- NOTE | 2018-11-01 15:51 | NUR ---
PER DR. Lillie BISHOP, PATIENT NEEDS. MANUAL FECAL DISIMPACTION.
[2018-11-01] MEDS ORDERED: BISACODYL 5 MG TAB EC PO NR ×3 (16:00→17:00)
--- NOTE | 2018-11-01 16:35 | NUR ---
ATTEMPTED MANUAL FECAL DISIMPACTION, PATIENT TOLERATED IT WELL.
[2018-11-01] MEDS ORDERED: PROPOFOL IV EMULSION 10 MG/ML 50 ML VIAL ONE (17:37)
[2018-11-01] MEDS ORDERED: CITRATE OF MAGNESIA 300ML BOTTLE PO NR (18:00)
--- NOTE | 2018-11-01 19:20 | NUR ---
REPORT GIVEN TO ONCOMING NURSE, PATIENT IS RESTING IN BED. NO ACUTE DISTRESS NOTED, RESPIRATIONS EVEN AND UNLABORED. CALL LIGHT WITHIN REACH. BED IN THE LOWEST POSITION.
[2018-11-01] MEDS: ATORVASTATIN 40 MG TAB PO SCH (21:01)
[2018-11-01] MEDS: CEFTRIAXONE SOD 1 GM/NS 50 ML 50 ML IV SCH (21:01)
[2018-11-01] MEDS: CITRATE OF MAGNESIA 300ML BOTTLE PO NR ×2 (21:06→21:24)
[2018-11-01] MEDS: DOCUSATE SODIUM LIQD 100 MG/10 ML UDC PO SCH (21:22)
[2018-11-02] VITALS (7 sets, daily range): BP systolic 105–142; BP diastolic 52–64
--- NOTE | 2018-11-02 00:20 | NUR ---
Spoke to Dr. Lynne Harrell about the patient not stooling much during my shift. I have given her the oral medications but she threw up some of the medication and refused to take the magnesium citrate, which I try giving to her several times with a syringe. He requested to give Dulcolax suppository 20mg now, if she stools to give her another dose in 30 minutes, if she stools to give her a fleet enema. If the patient does not stool after the first dose of Dulcolax within 30 minutes to go ahead and give the patient the fleet enema. .
[2018-11-02] MEDS ORDERED: BISACODYL 10 MG SUPP PR ONE ×2 (00:30→01:00)
[2018-11-02] MEDS ORDERED: MINERAL OIL 132 ML BTL PR ONE (01:30)
[2018-11-02 05:43] LABS: BASOPHILS % 0.2 % (0.0-1.0); EOSINOPHILS % 0.1 % (0.0-6.0); HEMATOCRIT 28.4 % (34.2-44.1); HEMOGLOBIN 9.5 g/dL (12.0-16.0); LYMPHOCYTES # (AUTO) 1.1 (1.0-3.2); LYMPHOCYTES % 8.9 % (18.0-39.1); MEAN CORPUSCULAR HEMOGLOBIN 32.4 pg (28-32); MEAN CORPUSCULAR HGB CONC 33.5 g/dL (31-35); MEAN CORPUSCULAR VOLUME 96.9 fL (81-99); MONOCYTES # (AUTO) 0.8 (0.2-0.8); MONOCYTES % 6.6 % (4.4-11.3); NEUTROPHILS # (AUTO) 10.2 (2.1-6.9); NEUTROPHILS % 83.7 % (38.7-80.0); PLATELET COUNT 189 x10e3/uL (140-360); RED BLOOD COUNT 2.93 x10e6/uL (3.6-5.1); RED CELL DISTRIBUTION WIDTH 12.6 % (11.7-14.4)
[2018-11-02 06:05] LABS: ANION GAP 15.9 mmol/L (8-16); CALCIUM 8.8 mg/dL (8.4-10.2); CREATININE, SERUM 0.99 mg/dL (0.57-1.11)
[2018-11-02 06:31] LABS: POTASSIUM 2.9 mmol/L (3.5-5.1)
--- NOTE | 2018-11-02 06:36 | NUR ---
I have given the patient Bisacodyl suppository 20mg x2 and have also given the patient Fleet enemax1 and fleet enema using water x2. Dr. Batista requested to keep giving the patient enemas until stool is clear. Patient has been stooling liquid stool less each time, but is not clear yet. .
--- NOTE | 2018-11-02 07:13 | NUR ---
Called Dr. Salinas and left a message to return call for a critical value. Received called back and reported the potassium of 2.9. He asked if the patient could take PO medications. I told the doctor we have been having trouble getting her to take medications due to confusion. Also the patient was put NPO for possible colonoscopy. He ordered 60 Meq potassium IV. I verified order and he repeated that he wanted 60 Meq of potassium IV ran in about 6hrs.
[2018-11-02] MEDS ORDERED: SODIUM CHLORIDE 0.9% IV SCH (07:30)
[2018-11-02] MEDS ORDERED: POTASSIUM CHL IV SCH (07:30)
[2018-11-02] MEDS ORDERED: POTASSIUM CHL IV PRN (07:30)
[2018-11-02] MEDS: PANTOPRAZOLE SOD 40 MG TABEC PO SCH (07:30)
[2018-11-02] MEDS ORDERED: SODIUM CHLORIDE 0.9% IV PRN (07:30)
[2018-11-02] MEDS ORDERED: PANTOPRAZOLE SOD 40 MG TABEC PO SCH (07:30)
[2018-11-02] MEDS: METOPROLOL TARTRATE 25 MG TAB PO SCH ×2 (09:00→17:00)
[2018-11-02] MEDS: DOCUSATE SODIUM LIQD 100 MG/10 ML UDC PO SCH ×2 (09:00→17:00)
[2018-11-02] MEDS: POLYETHYLENE GLYCOL 3350 17 GM PACK PO SCH ×2 (09:00→17:00)
[2018-11-02] MEDS: CARBIDOPA/LEVODOPA 25/250 TAB PO SCH ×3 (09:00→21:00)
--- NOTE | 2018-11-02 18:35 | NUR ---
PT RECEIVED TO THE FLOOR FROM [facility]. FAMILY MEMBERS IN THE ROOM AT BEDSIDE. PT IS STABLE AND DENIES FURTHER NEEDS.
[2018-11-02] MEDS: CEFTRIAXONE SOD 1 GM/NS 50 ML 50 ML IV SCH (20:15)
--- NOTE | 2018-11-02 20:36 | NUR ---
RECEIVED PT IN BED AOX1 RESPIRATIONS ARE EVEN AND UNLABORED DENIES PAIN .KELLY LIGHT WITH IN REACH .CONTINUE TO MONITOR
[2018-11-02] MEDS: ATORVASTATIN 40 MG TAB PO SCH (21:00)
[2018-11-03] VITALS (8 sets, daily range): BP systolic 98–133; BP diastolic 50–72
--- NOTE | 2018-11-03 07:04 | NUR ---
GIVEN ONE FLEET ENEMA AND 2 X SOAP KENNY ENEMA PT HAD LOOSE STOOL .STOOL NOT CLEAR .REPORT GIVEN TO THE ON COMING NURSE
--- NOTE | 2018-11-03 07:40 | NUR ---
PATIENT IS AWAKE AND IN STABLE CONDITION WITH NO S/S OF RESPIRATORY DISTRESS. NO PAIN VOICED. TELEMETRY APPLIED. BED ALARM APPLIED. CALL LIGHT IS WITHIN REACH, PATIENT INSTRUCTED TO CALL FOR ASSISTANCE NEEDED.
[2018-11-03] MEDS: DOCUSATE SODIUM LIQD 100 MG/10 ML UDC PO SCH ×2 (08:36→16:19)
[2018-11-03] MEDS: METOPROLOL TARTRATE 25 MG TAB PO SCH ×2 (08:37→16:20)
[2018-11-03] MEDS: POLYETHYLENE GLYCOL 3350 17 GM PACK PO SCH ×2 (08:37→16:20)
[2018-11-03] MEDS: PANTOPRAZOLE SOD 40 MG TABEC PO SCH (08:37)
[2018-11-03] MEDS: CARBIDOPA/LEVODOPA 25/250 TAB PO SCH ×3 (08:37→21:00)
--- NOTE | 2018-11-03 11:50 | NUR ---
PATIENT HAD A BOWEL MOVEMENT AND URINE IN DIAPER- BOWEL MOVEMENT IS BROWN AND SOFT/LIQUID. PATIENT CLEANED AND NEW DIAPER APPLIED. SOAP ENEMA ADMINISTERED TO PATIENT. BED ALARM APPLIED. DAUGHTERS PRESENT IN ROOM.
--- NOTE | 2018-11-03 14:11 | NUR ---
RECEIVED A CALL FROM DR. BIHSOP - ASKED REGARDING CLEARANCE ON PATIENT'S BOWEL MOVEMENT. PATIENT IS NOT CLEAR AND HAS RECEIVED ONE SOAP ENEMA- DR. BISHOP AWARE. ORDER TO ADMINISTER SOAP ENEMA Q1H UNTIL PATIENT IS CLEAR.
--- NOTE | 2018-11-03 14:41 | NUR ---
SOAP ENEMA ADMINISTERED AT [address] Sharri BISHOP'S ORDER. PATIENT AWARE SOAP ENEMA'S WILL BE GIVEN EVERY HOUR UNTIL HER STOOL IS CLEAR.
[2018-11-03] MEDS: SODIUM CHLORIDE 0.9% 1000ML 1,000 ML IV SCH (15:30)
--- NOTE | 2018-11-03 15:55 | NUR ---
SOAP ENEMA ADMINISTERED TO PATIENT.
--- NOTE | 2018-11-03 17:02 | NUR ---
SOAP ENEMA ADMINISTERED. DIAPER APPLIED. BED ALARM ON. FAMILY MEMBERS PRESENT IN ROOM. CALL LIGHT IS WITHIN REACH OF PATIENT.
--- NOTE | 2018-11-03 18:20 | NUR ---
SOAP ENEMA ADMINISTERED- PATIENT TOLERATED WELL. DIAPER CHANGED. BED ALARM ON. FAMILY MEMBER PRESENT IN ROOM.
--- NOTE | 2018-11-03 19:24 | NUR ---
PATIENT IS RESTING IN BED- IN STABLE CONDITION WITH NO S/S OF RESPIRATORY DISTRESS. NO PAIN VOICED. LAST ENEMA ADMINISTERED AT 1820- DIAPER CHANGED. BED ALARM ON. FAMILY MEMBER PRESENT IN ROOM . NIGHT NURSE INFORMED ENEMA'S TO BE ADMINISTERED EVERY HOUR UNTIL PATIENT IS CLEAR. CALL LIGHT IS WITHIN REACH, PATIENT INSTRUCTED TO CALL FOR ASSISTANCE NEEDED. REPORT GIVEN TO ONCOMING NURSE.
--- NOTE | 2018-11-03 19:57 | NUR ---
RECEIVED PT IN BED AOX1 .FAMILY AT THE BEDSIDE .PT IS STILL IMPACTED .CALL LIGHT WITH IN REACH.
--- NOTE | 2018-11-03 19:58 | NUR ---
SOAP KENNY ENEMA ADMINISTERED AT [address] BISHOP ORDER .DIAPER APPLIED
[2018-11-03] MEDS: CEFTRIAXONE SOD 1 GM/NS 50 ML 50 ML IV SCH (20:15)
[2018-11-03] MEDS: ATORVASTATIN 40 MG TAB PO SCH (21:00)
[2018-11-04] VITALS (9 sets, daily range): BP systolic 116–164; BP diastolic 55–82
[2018-11-04] MEDS ORDERED: POTASSIUM CHLORIDE 20 MEQ TAB CR PO STA ×2 (01:52→08:30)
[2018-11-04] MEDS ORDERED: CITRATE OF MAGNESIA 300ML BOTTLE PO ONE ×3 (05:45→21:30)
[2018-11-04 06:00] LABS: ANION GAP 8.8 mmol/L (8-16); CREATININE, SERUM 1.12 mg/dL (0.57-1.11)
[2018-11-04 06:02] LABS: POTASSIUM 2.8 mmol/L (3.5-5.1)
--- NOTE | 2018-11-04 06:20 | NUR ---
GIVEN 6 TIMES SOAPSUD ENEMA NOTIFIED DR BISHOP AND TOLD TO STOP ENEMA NOW AND GIVEN MAGCITRATE .PT HAD LOOSE STOOL BUT NOT CLEAR CONTINUE TO MONITOR
--- NOTE | 2018-11-04 06:23 | NUR ---
GIVEN MAGCITRATE,MONITORING THE PT FAMILY AT THE BEDSIDE .CONTINUE TO MONITOR
--- NOTE | 2018-11-04 07:06 | NUR ---
GIVEN MAGCITRATE .LAB CALLED K -2.8 . REPORT GIVEN TO THE ONCOMING NURSE
--- NOTE | 2018-11-04 07:30 | NUR ---
PATIENT IS AWAKE AND IN STABLE CONDITION WITH NO S/S OF RESPIRATORY DISTRESS. NO PAIN VOICED. TELEMETRY APPLIED. IV FLUIDS INFUSING. DAUGHTER PRESENT IN ROOM. BED ALARM APPLIED. CALL LIGHT IS WITHIN REACH, PATIENT INSTRUCTED TO CALL FOR ASSISTANCE NEEDED.
--- NOTE | 2018-11-04 07:56 | NUR ---
CALL PLACED OUT TO DR. BISHOP FOLLOW UP CALL ( REQUESTED BY DR. BISHOP) REGARDING PATIENT'S COLONOSCOPY PREPARATION. AWAITING CALLBACK.
[2018-11-04] MEDS: PANTOPRAZOLE SOD 40 MG TABEC PO SCH (08:48)
[2018-11-04] MEDS: DOCUSATE SODIUM LIQD 100 MG/10 ML UDC PO SCH ×2 (08:48→16:47)
[2018-11-04] MEDS: CARBIDOPA/LEVODOPA 25/250 TAB PO SCH ×3 (08:49→21:45)
[2018-11-04] MEDS: POLYETHYLENE GLYCOL 3350 17 GM PACK PO SCH ×2 (08:49→16:48)
[2018-11-04] MEDS: METOPROLOL TARTRATE 25 MG TAB PO SCH ×2 (08:49→16:48)
[2018-11-04] MEDS ORDERED: POTASSIUM CHLORIDE 20 MEQ TAB CR PO SCH ×4 (09:30→10:30)
--- NOTE | 2018-11-04 10:27 | NUR ---
SPOKE WITH DR. BISHOP REGARDING PATIENT'S BOWEL MOVEMENT AND PATIENT UNABLE TO TAKE SECOND DOSE OF POTASSIUM BY MOUTH. ORDER TO D/C PO POTASSIUM AND ADMINISTER 40MEQ OF IV POTASSIUM OF TWO HOURS.
[2018-11-04] MEDS ORDERED: POTASSIUM CHLORIDE 20MEQ/100ML 200 ML IV ONE (10:30)
[2018-11-04] MEDS: POTASSIUM CHLORIDE 20MEQ/100ML 100 ML IV SCH ×2 (11:21→13:00)
[2018-11-04] MEDS: SODIUM CHLORIDE 0.9% 1000ML 1,000 ML IV SCH (11:21)
[2018-11-04] MEDS ORDERED: LEVOFLOXACIN 500MG/D5W 100ML 100 ML IV SCH (12:45)
[2018-11-04] MEDS: LEVOFLOXACIN 500MG/D5W 100ML 100 ML IV SCH (15:06)
--- NOTE | 2018-11-04 16:47 | NUR ---
DC PLANNING: PT STILL NOT CLEAR FOR COLONSCOPY. K 2.8. K REPLACEMENT GIVEN. Sharri BISHOP ON STANDBY FOR PROCEDURE. SPOKE W PT'S DAUGHTERS ABOUT NH PLACEMENT. STATES THEIR BROTHER DOES NOT WANT THE MOTHER IN A NH. DISCUSSED OTHER OPTIONS; PROVIDER SERVICES, HOME HEALTH. CM WILL CONTINUE TO FOLLOW.
--- NOTE | 2018-11-04 19:10 | NUR ---
Bedside report completed with morning nurse. Pt alert to name call. Pt right side lying in bed HOB 30 degrees. Pt Arabic speaking. No s/s of pain at this time. No acute distress noted. Call chand within reach. Will continue to monitor.
--- NOTE | 2018-11-04 19:39 | NUR ---
PATIENT IS IN STABLE CONDITION WITH NO S/S OF RESPIRATORY DISTRESS. NO PAIN VOICED. DIAPER APPLIED. IV FLUIDS INFUSING. TELEMETRY APPLIED. BED ALARM APPLIED. CALL LIGHT IS WITHIN REACH, PATIENT INSTRUCTED TO CALL FOR ASSISTANCE NEEDED. REPORT GIVEN TO ONCOMING NURSE.
--- NOTE | 2018-11-04 19:43 | NUR ---
CALL PLACED OUT TO DR. BISHOP REGARDING ORDERS FOR COLONOSCOPY PREP- AWAITING CALL BACK.
--- NOTE | 2018-11-04 19:45 | NUR ---
RECEIVED CALLBACK FROM DR. BISHOP - NEW ORDER RECEIVED FOR MAG CITRATE.
[2018-11-04] MEDS: ATORVASTATIN 40 MG TAB PO SCH (21:45)
[2018-11-05] VITALS (7 sets, daily range): BP systolic 113–144; BP diastolic 55–74
[2018-11-05 06:03] LABS: BASOPHILS % 0.2 % (0.0-1.0); EOSINOPHILS # (AUTO) 0.1 (0.0-0.4); HEMATOCRIT 28.1 % (34.2-44.1); HEMOGLOBIN 9.4 g/dL (12.0-16.0); LYMPHOCYTES % 11.8 % (18.0-39.1); MEAN CORPUSCULAR HEMOGLOBIN 31.8 pg (28-32); MEAN CORPUSCULAR HGB CONC 33.5 g/dL (31-35); MEAN CORPUSCULAR VOLUME 94.9 fL (81-99); MONOCYTES # (AUTO) 0.8 (0.2-0.8); MONOCYTES % 9.1 % (4.4-11.3); NEUTROPHILS # (AUTO) 6.4 (2.1-6.9); NEUTROPHILS % 77.4 % (38.7-80.0); PLATELET COUNT 147 x10e3/uL (140-360); RED BLOOD COUNT 2.96 x10e6/uL (3.6-5.1); RED CELL DISTRIBUTION WIDTH 12.4 % (11.7-14.4)
[2018-11-05 06:22] LABS: ANION GAP 9.1 mmol/L (8-16); CALCIUM 8.2 mg/dL (8.4-10.2); CREATININE, SERUM 1.48 mg/dL (0.57-1.11); MAGNESIUM 2.2 MG/DL (1.3-2.1); POTASSIUM 3.1 mmol/L (3.5-5.1)
[2018-11-05] MEDS: SODIUM CHLORIDE 0.9% 1000ML 1,000 ML IV SCH (07:08)
[2018-11-05] MEDS ORDERED: POTASSIUM CHLORIDE 20 MEQ TAB CR PO ONE (08:30)
--- NOTE | 2018-11-05 08:40 | NUR ---
Pt received resting in bed. Alert and oriented to person with family at bedside. Pt is Italian speaking only. Oriented to staff and surroundings, encouraged to press call chand if help needed. All meds given as ordered. Emotional support given. Fall precautions maintained. Will monitor
[2018-11-05] MEDS: DOCUSATE SODIUM LIQD 100 MG/10 ML UDC PO SCH ×2 (08:44→16:35)
[2018-11-05] MEDS: PANTOPRAZOLE SOD 40 MG TABEC PO SCH (08:44)
[2018-11-05] MEDS: METOPROLOL TARTRATE 25 MG TAB PO SCH ×2 (08:45→16:08)
[2018-11-05] MEDS: POLYETHYLENE GLYCOL 3350 17 GM PACK PO SCH ×2 (08:45→16:35)
[2018-11-05] MEDS: CARBIDOPA/LEVODOPA 25/250 TAB PO SCH ×3 (09:00→23:09)
[2018-11-05] MEDS ORDERED: POTASSIUM CHLORIDE 20MEQ/15ML UDC PO ONE (10:45)
[2018-11-05] MEDS: AMLODIPINE BESYLATE 10 MG TAB PO SCH (12:45)
[2018-11-05 16:32] LABS: ANION GAP 12.3 mmol/L (8-16); CALCIUM 8.3 mg/dL (8.4-10.2); CREATININE, SERUM 2.15 mg/dL (0.57-1.11); POTASSIUM 4.3 mmol/L (3.5-5.1)
[2018-11-05] MEDS: LEVOFLOXACIN 500MG/D5W 100ML 100 ML IV SCH (16:35)
--- NOTE | 2018-11-05 18:14 | NUR ---
Pt had a few bowel movements which were still brown. Emotional support given. Family at bedside. Will endorse to next shift
[2018-11-05] MEDS: ATORVASTATIN 40 MG TAB PO SCH (23:09)
[2018-11-06] VITALS (8 sets, daily range): BP systolic 105–148; BP diastolic 60–79
[2018-11-06] MEDS: SODIUM CHLORIDE 0.9% 1000ML 1,000 ML IV SCH ×2 (04:30→18:09)
[2018-11-06 06:26] LABS: BASOPHILS % 0.3 % (0.0-1.0); EOSINOPHILS % 0.3 % (0.0-6.0); HEMATOCRIT 28.8 % (34.2-44.1); HEMOGLOBIN 9.7 g/dL (12.0-16.0); LYMPHOCYTES % 10.3 % (18.0-39.1); MEAN CORPUSCULAR HEMOGLOBIN 32.1 pg (28-32); MEAN CORPUSCULAR HGB CONC 33.7 g/dL (31-35); MEAN CORPUSCULAR VOLUME 95.4 fL (81-99); MONOCYTES # (AUTO) 0.7 (0.2-0.8); NEUTROPHILS # (AUTO) 7.4 (2.1-6.9); NEUTROPHILS % 80.7 % (38.7-80.0); PLATELET COUNT 148 x10e3/uL (140-360); RED BLOOD COUNT 3.02 x10e6/uL (3.6-5.1); RED CELL DISTRIBUTION WIDTH 12.6 % (11.7-14.4)
[2018-11-06 06:52] LABS: ANION GAP 12.2 mmol/L (8-16); CALCIUM 8.6 mg/dL (8.4-10.2); CREATININE, SERUM 2.23 mg/dL (0.57-1.11); MAGNESIUM 2.2 MG/DL (1.3-2.1); POTASSIUM 4.2 mmol/L (3.5-5.1)
[2018-11-06] MEDS ORDERED: MAGNESIUM HYDROXIDE 30 ML UDC PO STA ×2 (07:14→07:20)
--- NOTE | 2018-11-06 07:50 | NUR ---
Pt received resting in bed with family at bedside. Stool still brown, Dr. Sharri Batista aware. Meds ordered & given. Will follow up
[2018-11-06] MEDS: DOCUSATE SODIUM LIQD 100 MG/10 ML UDC PO SCH ×2 (08:00→17:43)
[2018-11-06] MEDS: PANTOPRAZOLE SOD 40 MG TABEC PO SCH (08:00)
[2018-11-06] MEDS: CARBIDOPA/LEVODOPA 25/250 TAB PO SCH ×3 (08:01→21:02)
[2018-11-06] MEDS: POLYETHYLENE GLYCOL 3350 17 GM PACK PO SCH ×2 (08:01→17:44)
[2018-11-06] MEDS: AMLODIPINE BESYLATE 10 MG TAB PO SCH (08:01)
[2018-11-06] MEDS ORDERED: MAGNESIUM HYDROXIDE 30 ML UDC PO ONE ×3 (09:00)
--- NOTE | 2018-11-06 12:28 | Diagnostic Imaging Report ---
Exam: Abdominal film Clinical History: Abdominal pain Comparison: None. DISCUSSION: Multiple loops of air-filled bowel. No obstruction. Mild amount of retained stool within the distal colon. IMPRESSION: Nonobstructive bowel gas pattern Signed by: Dr. Manuel Nuñez M.D. on 11/06/2018 12:25 PM
[2018-11-06] MEDS ORDERED: FUROSEMIDE INJ 10 MG/ML 4 ML VIAL IV ONE (12:30)
[2018-11-06] MEDS: METOPROLOL TARTRATE 25 MG TAB PO SCH ×2 (13:19→17:44)
[2018-11-06] MEDS: LEVOFLOXACIN 500MG/D5W 100ML 100 ML IV SCH (15:00)
--- NOTE | 2018-11-06 17:15 | NUR ---
Bladder scan done as per Dr. Dash. Result was >999ML. Deborah notified, and 16Fr Miner inserted. 1200ML urine obtained. Will endorse to next shift
[2018-11-06] MEDS ORDERED: CITRATE OF MAGNESIA 300ML BOTTLE PO ONE ×2 (18:15→21:00)
--- NOTE | 2018-11-06 19:05 | NUR ---
Completed bedside report with morning nurse. Pt alert to name call. Pt right side lying in bed HOB 30 degrees. No s/s of pain at this time. No acute distress noted. Family at bedside. Call chand within reach. Will continue to monitor.
[2018-11-06] MEDS: ATORVASTATIN 40 MG TAB PO SCH (21:02)
[2018-11-06] MEDS: BALSAM PERU/CASTOR OIL 60 GM OINT...G. TP SCH (21:02)
--- NOTE | 2018-11-06 23:01 | NUR ---
Bedside round with Dr. Sharri Batista. Ordered Dulcolax 20mg PO now and every 30mins x3 dose.
[2018-11-06] MEDS ORDERED: BISACODYL 5 MG TAB EC PO ONE (23:15)
--- NOTE | 2018-11-06 23:43 | NUR ---
Dr. Sharri Batista cancelled x3 dose Dulcolax. New order Mg Citrate 300ml at 0500. Pt sleep during PO admin of initial Dulcolax. No distress noted. Family at bedside. Call chand within reach.
[2018-11-06] MEDS ORDERED: BISACODYL 5 MG TAB EC PO SCH (23:45)
[2018-11-07] VITALS (8 sets, daily range): BP systolic 100–128; BP diastolic 56–72
[2018-11-07 04:45] LABS: BASOPHILS % 0.4 % (0.0-1.0); EOSINOPHILS # (AUTO) 0.1 (0.0-0.4); EOSINOPHILS % 1.6 % (0.0-6.0); HEMATOCRIT 30.9 % (34.2-44.1); HEMOGLOBIN 9.7 g/dL (12.0-16.0); LYMPHOCYTES # (AUTO) 1.6 (1.0-3.2); LYMPHOCYTES % 20.9 % (18.0-39.1); MEAN CORPUSCULAR HEMOGLOBIN 32.2 pg (28-32); MEAN CORPUSCULAR HGB CONC 31.4 g/dL (31-35); MONOCYTES # (AUTO) 0.8 (0.2-0.8); MONOCYTES % 10.2 % (4.4-11.3); NEUTROPHILS % 66.5 % (38.7-80.0); PLATELET COUNT 145 x10e3/uL (140-360); RED BLOOD COUNT 3.01 x10e6/uL (3.6-5.1)
[2018-11-07 04:49] LABS: MEAN CORPUSCULAR VOLUME 102.7 fL (81-99)
[2018-11-07 04:59] LABS: CALCIUM 8.1 mg/dL (8.4-10.2); MAGNESIUM 2.1 MG/DL (1.3-2.1)
[2018-11-07] MEDS ORDERED: CITRATE OF MAGNESIA 300ML BOTTLE PO ONE (05:00)
--- NOTE | 2018-11-07 07:04 | NUR ---
RECEIVED REPORT FROM NIGHT NURSE, WALKING ROUNDS COMPLETED. PATIENT IS RESTING IN BED. NO ACUTE DISTRESS NOTED. DAUGHTER AT BEDSIDE. CALL LIGHT WITHIN REACH. BED IN THE LOWEST POSITION. BED ALARM ON.
[2018-11-07] MEDS: POLYETHYLENE GLYCOL 3350 17 GM PACK PO SCH ×2 (09:18→17:59)
[2018-11-07] MEDS: PANTOPRAZOLE SOD 40 MG TABEC PO SCH (09:18)
[2018-11-07] MEDS: METOPROLOL TARTRATE 25 MG TAB PO SCH ×2 (09:18→17:59)
[2018-11-07] MEDS: DOCUSATE SODIUM LIQD 100 MG/10 ML UDC PO SCH ×2 (09:18→17:59)
[2018-11-07] MEDS: BALSAM PERU/CASTOR OIL 60 GM OINT...G. TP SCH ×2 (09:19→21:42)
[2018-11-07] MEDS: CARBIDOPA/LEVODOPA 25/250 TAB PO SCH ×3 (09:19→21:00)
[2018-11-07] MEDS: AMLODIPINE BESYLATE 10 MG TAB PO SCH (09:19)
--- NOTE | 2018-11-07 09:20 | NUR ---
PER DR. DARIO TEMPLE UNTIL CLEAR.
[2018-11-07] MEDS ORDERED: POTASSIUM CHLORIDE 20 MEQ TAB CR PO STA (09:36)
[2018-11-07] MEDS: SODIUM CHLORIDE 0.9% 1000ML 1,000 ML IV SCH (10:09)
--- NOTE | 2018-11-07 10:15 | NUR ---
FIRST SOAP KENNY ENEMA ADMINISTERED, PATIENT TOLERATED IT WELL.
--- NOTE | 2018-11-07 10:29 | NUR ---
MET Rhonda LOPEZ IN LAW AT THE BEDSIDE FOR IMM LETTER. STATES SHE DOES NOT SIGN PAPERWORK. NOTED AND COPY PLACED IN THE PT'S CHART. Addendum: 11/07/18 at 1030 by Eunice Gooden CM PT IS UNABLE TO SIGN
--- NOTE | 2018-11-07 11:40 | NUR ---
ANOTHER SOAP KENNY ENEMA ADMINISTERED AT THIS TIME, PATIENT IS STILL HAVING SMALL AMOUNTS OF STOOL, NOT CLEAR YET.
--- NOTE | 2018-11-07 13:50 | NUR ---
ROBERTA KENNY ENEMA ADMINISTERED. PATIENT TOLERATED IT WELL. STOOL LIQUID CLEAR YELLOW.
[2018-11-07] MEDS: LEVOFLOXACIN 500MG/D5W 100ML 100 ML IV SCH (14:33)
--- NOTE | 2018-11-07 15:19 | Consultation ---
DATE OF CONSULTATION: 11/07/2018 Urology Consultation REASON FOR CONSULTATION: Urinary retention. HISTORY OF PRESENT ILLNESS: Mrs. Citlali Cruz is an 83-year-old female admitted to the hospital with abdominal pain and impaction with fecal incontinence for over 6 days. She denied dysuria, has had urinary incomplete emptying, denied gross hematuria. PAST MEDICAL HISTORY: Hypertension, gastroesophageal reflux disease, chronic constipation, hypercholesterolemia, Parkinson disease, and skin cancers. MEDICATIONS: Please see MAR. ALLERGIES: NKDA. SOCIAL HISTORY: Denied smoking or drinking. FAMILY HISTORY: Denied urologic stone or malignancies. REVIEW OF SYSTEMS: Noncontributory other than problems mentioned above for 12 organ systems. PHYSICAL EXAMINATION: GENERAL: An elderly female, in no acute distress. VITAL SIGNS: Currently, she is afebrile with a temperature of 97.7, pulse 91, respirations 18, blood pressure 145/68. HEENT: Sclerae anicteric. NECK: Supple. BACK: Without costovertebral angle tenderness bilaterally. ABDOMEN: Soft. It is mildly distended. No masses. No hernias. No hepatosplenomegaly. : Normal female external genitalia. EXTREMITIES: Without edema. NEUROLOGIC: Moves 4 extremities. PSYCH: Alert. Mood appropriate. SKIN: Intact. Normal color. PERTINENT LABORATORY DATA: CT scan revealing a 4.9 cm left renal cyst, constipation, impaction. Hemoglobin 9.7, hematocrit 30, platelet count 145,000, and white cell count 7470. Sodium 139, potassium 3.0, chloride 109, bicarb 23, BUN 12, creatinine 1, glucose 114, calcium of 8.1. Urinalysis; 6 to 10 whites, 0 to 5 reds. IMPRESSION: 1. Urinary retention. 2. Urinary tract infection present on admission. 3. Left renal cyst. 4. Hypokalemia. 5. Hypocalcemia. 6. Anemia. 7. Hypertension. 8. Chronic constipation. PLAN: Primary service is working on the constipation, agree with this. This may be the etiology of the patient's urinary retention. For the patient's simple renal cyst, she will need surveillance. For the patient's urinary tract infection, she has been placed on broad spectrum empiric antibiotics, we will adjust to culture specific antibiotics if they are available. Electively, the patient will need a cystoscopy. Should the patient fail a voiding trial after constipation is resolved, would need outpatient urodynamics. For the patient's hematology and electrolytes, we will defer to the primary service and defer hypertension control to the primary service as well. Thank you for allowing me to participate in the care of your patient. I will be happy to follow along with you. MD MARA Balbuena/MARITA /[id number] MTDD
--- NOTE | 2018-11-07 15:47 | NUR ---
PATIENT OFF THE UNIT FOR PROCEDURE.
--- NOTE | 2018-11-07 17:15 | NUR ---
PATIENT BACK TO UNIT, SHE IS IN STABLE CONDITION.
--- NOTE | 2018-11-07 17:33 | NUR ---
Follow-up Note RD Recommendation for Physician: - Continue GI soft diet as ordered - Consider Ensure Compact BID if PO is poor on regular diet - The patient meets criteria for MILD protein-calorie malnutrition. Plan of Care: RD following, monitoring for tolerance and adequacy Nutrition reason for involvement: Follow up Primary Diagnose(s): abdominal pain, diarrhea PMH: No H&P in chart Ht: 61in Wt: 112.56lb; 120.19lb BMI: 21.3kg/m2 IBW: 105lb RD Assessment: (11/07) Pt was discussed during AM rounds today. NPO/ clear liquid x 6 days. KUB showed constipation. Pt was getting bowel prep for colonoscopy today. Pt had BM after enema was given. Diet was advanced to GI soft for dinner tonight. Will re-visit pt to assess oral intake on regular diet. Please consult as needed. (10/31) Chart reviewed. Labs and meds reviewed. 83yo F, who was admitted for abdominal pain and diarrhea x [address] abd/ pel showed constipation and rectal fecal impaction. Visited pt in the room. 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 Unknown weight loss. For today, pt denied any nausea or vomiting. No chewing or swallowing difficulty noted. Currently NPO. Will continue to monitor and follow. Please consult as needed. Current Diet: GI soft Malnutrition Evaluation (10/31/2018) The patient meets criteria for MILD protein-calorie malnutrition. Energy intake: <75% of estimated energy requirements for >7 days Weight loss: Unknown per family Fat loss: Mild some clavicle protrusion Muscle loss: Mild slight temporal depression Supporting Evidence: Fluid accumulation: unable to evaluate Functional Status: no changes Diet Education Needs Assessment: Diet education not indicated. Nutrition Care Level: mod Signed: Adamaris Smith, MS, RD, LD
[2018-11-07] MEDS ORDERED: PROPOFOL IV EMULSION 10 MG/ML 50 ML VIAL ONE (18:07)
[2018-11-07] MEDS ORDERED: LIDOCAINE HCL 2% LOCAL INJ 5 ML SDV VIAL INJ ONE (18:07)
--- NOTE | 2018-11-07 19:27 | NUR ---
REPORT GIVEN TO ONCOMING NURSE, WALKING ROUNDS DONE. PATIENT IS RESTING IN BED. NO ACUTE DISTRESS NOTED. DAUGHTER AT BEDSIDE. CALL LIGHT WITHIN REACH. BED IN THE LOWEST POSITION.
--- NOTE | 2018-11-07 19:36 | NUR ---
PT IS RESTING IN BED WITH DAUGHTER AT BEDSIDE. NO RESPIRATORY DISTRESS NOTED. BED IN THE LOWEST POSITION, LOCKED, BED ALARM ON, AND CALL LIGHT WITHIN REACH. WILL CONTINUE TO MONITOR.
[2018-11-07] MEDS: ATORVASTATIN 40 MG TAB PO SCH (21:00)
[2018-11-08] VITALS (8 sets, daily range): BP systolic 112–134; BP diastolic 54–76
[2018-11-08 03:44] LABS: BASOPHILS % 0.4 % (0.0-1.0); EOSINOPHILS # (AUTO) 0.2 (0.0-0.4); EOSINOPHILS % 2.1 % (0.0-6.0); HEMATOCRIT 29.1 % (34.2-44.1); HEMOGLOBIN 9.8 g/dL (12.0-16.0); LYMPHOCYTES # (AUTO) 1.6 (1.0-3.2); LYMPHOCYTES % 19.1 % (18.0-39.1); MEAN CORPUSCULAR HEMOGLOBIN 32.6 pg (28-32); MEAN CORPUSCULAR HGB CONC 33.7 g/dL (31-35); MONOCYTES # (AUTO) 0.8 (0.2-0.8); MONOCYTES % 10.1 % (4.4-11.3); NEUTROPHILS # (AUTO) 5.5 (2.1-6.9); NEUTROPHILS % 67.9 % (38.7-80.0); PLATELET COUNT 134 x10e3/uL (140-360); RED BLOOD COUNT 3.01 x10e6/uL (3.6-5.1)
[2018-11-08] MEDS: SODIUM CHLORIDE 0.9% 1000ML 1,000 ML IV SCH ×2 (03:46→15:49)
[2018-11-08 03:55] LABS: MEAN CORPUSCULAR VOLUME 96.7 fL (81-99)
[2018-11-08 04:03] LABS: ANION GAP 10.1 mmol/L (8-16); BLOOD UREA NITROGEN 7 mg/dL (7-26); BUN/CREATININE RATIO 10 (6-25); CALCIUM 7.9 mg/dL (8.4-10.2); CARBON DIOXIDE 27 mmol/L (22-29); CHLORIDE 107 mmol/L (98-107); CREATININE, SERUM 0.68 mg/dL (0.57-1.11); EST GLOMERULAR FILTRATION RATE > 60 ML/MIN (60-); GLUCOSE 97 mg/dL (74-118); MAGNESIUM 1.7 MG/DL (1.3-2.1); POTASSIUM 3.1 mmol/L (3.5-5.1); SODIUM 141 mmol/L (136-145)
--- NOTE | 2018-11-08 07:07 | NUR ---
Received patient resting in bed, no acute distress noted. Denies pain or discomfort. Daughter at bedside. Call light within reach, bed in the lowest position.
[2018-11-08] MEDS: PANTOPRAZOLE SOD 40 MG TABEC PO SCH (09:55)
[2018-11-08] MEDS: DOCUSATE SODIUM LIQD 100 MG/10 ML UDC PO SCH ×2 (09:55→16:52)
[2018-11-08] MEDS: CARBIDOPA/LEVODOPA 25/250 TAB PO SCH ×3 (09:55→21:16)
[2018-11-08] MEDS: POLYETHYLENE GLYCOL 3350 17 GM PACK PO SCH ×2 (09:55→16:52)
[2018-11-08] MEDS: AMLODIPINE BESYLATE 10 MG TAB PO SCH (09:55)
[2018-11-08] MEDS: METOPROLOL TARTRATE 25 MG TAB PO SCH ×2 (09:55→16:52)
[2018-11-08] MEDS: BALSAM PERU/CASTOR OIL 60 GM OINT...G. TP SCH ×2 (10:02→21:41)
[2018-11-08] MEDS ORDERED: POTASSIUM CHLORIDE 20MEQ/100ML 200 ML IV ONE (10:45)
--- NOTE | 2018-11-08 11:00 | NUR ---
AKHIL COHEN ROUNDING ON PATIENT NOTIFIED OF POTASSIUM 3.1, CALCIUM 7.9, AND PLATELETS OF 134. Addendum: 11/08/18 at 1101 by UZAIR LAKHANI RN NO NEW ORDERS RECEIVED.
[2018-11-08] MEDS: POTASSIUM CHLORIDE 20MEQ/100ML 100 ML IV SCH ×2 (11:20→13:21)
--- NOTE | 2018-11-08 13:22 | NUR ---
SPOKE WITH DAUGHTER KAYLIN ORR [phone], SPOKE WITH HER ABOUT SNF AND THE DIFFERENT LOCATIONS IN NETWORK. THEY CHOOSE [facility], FAXED CLINICALS TO [facility] AND FILED CHOICE IN CHART.
[2018-11-08] MEDS: LEVOFLOXACIN 500MG/D5W 100ML 100 ML IV SCH (15:49)
--- NOTE | 2018-11-08 19:39 | NUR ---
REPORT GIVEN TO ONCOMING NURSE, PATIENT IS RESTING IN BED. NO ACUTE DISTRESS NOTED. DAUGHTER AT BEDSIDE. CALL LIGHT WITHIN REACH. BED IN THE LOWEST POSITION.
[2018-11-08] MEDS: ATORVASTATIN 40 MG TAB PO SCH (21:16)
[2018-11-09] VITALS: BP 100/56
[2018-11-09] MEDS: SODIUM CHLORIDE 0.9% 1000ML 1,000 ML IV SCH ×3 (01:31→21:17)
[2018-11-09 04:00] VITALS: BP 128/61
[2018-11-09 06:25] LABS: BASOPHILS % 0.4 % (0.0-1.0); EOSINOPHILS # (AUTO) 0.2 (0.0-0.4); EOSINOPHILS % 2.3 % (0.0-6.0); LYMPHOCYTES # (AUTO) 1.4 (1.0-3.2); LYMPHOCYTES % 17.7 % (18.0-39.1); MEAN CORPUSCULAR HEMOGLOBIN 31.8 pg (28-32); MEAN CORPUSCULAR HGB CONC 33.3 g/dL (31-35); MEAN CORPUSCULAR VOLUME 95.5 fL (81-99); MONOCYTES # (AUTO) 0.9 (0.2-0.8); MONOCYTES % 10.7 % (4.4-11.3); NEUTROPHILS # (AUTO) 5.5 (2.1-6.9); NEUTROPHILS % 68.4 % (38.7-80.0); PLATELET COUNT 139 x10e3/uL (140-360); RED BLOOD COUNT 3.14 x10e6/uL (3.6-5.1); RED CELL DISTRIBUTION WIDTH 12.6 % (11.7-14.4)
[2018-11-09 06:47] LABS: ANION GAP 8.2 mmol/L (8-16); BLOOD UREA NITROGEN 6 mg/dL (7-26); BUN/CREATININE RATIO 10 (6-25); CARBON DIOXIDE 29 mmol/L (22-29); CHLORIDE 104 mmol/L (98-107); CREATININE, SERUM 0.63 mg/dL (0.57-1.11); EST GLOMERULAR FILTRATION RATE > 60 ML/MIN (60-); GLUCOSE 107 mg/dL (74-118); MAGNESIUM 1.4 MG/DL (1.3-2.1); POTASSIUM 3.2 mmol/L (3.5-5.1); SODIUM 138 mmol/L (136-145)
--- NOTE | 2018-11-09 07:25 | NUR ---
PT IN BED RESTING NO S/S DISOMFORT ,FAMILY AT BEDSIDE
[2018-11-09 08:00] VITALS: BP 131/71
[2018-11-09] MEDS: PANTOPRAZOLE SOD 40 MG TABEC PO SCH (08:56)
[2018-11-09] MEDS: DOCUSATE SODIUM LIQD 100 MG/10 ML UDC PO SCH ×2 (08:56→17:00)
[2018-11-09] MEDS: CARBIDOPA/LEVODOPA 25/250 TAB PO SCH ×3 (08:57→21:17)
[2018-11-09] MEDS: AMLODIPINE BESYLATE 10 MG TAB PO SCH (08:57)
[2018-11-09] MEDS: POLYETHYLENE GLYCOL 3350 17 GM PACK PO SCH ×2 (08:57→17:00)
[2018-11-09] MEDS: METOPROLOL TARTRATE 25 MG TAB PO SCH ×2 (08:57→17:00)
[2018-11-09] MEDS ORDERED: POTASSIUM CHLORIDE 20MEQ/100ML 200 ML IV ONE (10:00)
--- NOTE | 2018-11-09 10:02 | NUR ---
NOEL GUTIERREZ HERE ORDERS WRITTEN
[2018-11-09] MEDS: BALSAM PERU/CASTOR OIL 60 GM OINT...G. TP SCH ×2 (11:22→21:17)
[2018-11-09 12:00] VITALS: BP 133/67
--- NOTE | 2018-11-09 13:30 | NUR ---
CM SPOKE TO PATIENT AT BEDSIDE REGARDING IMM LETTER. IMM LETTER GIVEN WITH EXPLANATION. ORIGINAL SIGNED BY DAUGHTER AND PLACED IN CHART; COPY OF ORIGINAL DOCUMENT GIVEN TO PATIENT AT BEDSIDE AND PLACED IN CARE TRANSITION FOLDER. CM CONTACT INFORMATION GIVEN TO PATIENT FOR ANY NEEDS OR CONCERNS. PATIENT WITH NO FURTHER QUESTIONS. FELT HAT MELLOWING MACHINE OPERATOR- DEANGELO Mahan - [id number]
--- NOTE | 2018-11-09 14:15 | NUR ---
[facility]
[2018-11-09] MEDS: LEVOFLOXACIN 500MG/D5W 100ML 100 ML IV SCH (15:19)
[2018-11-09 16:00] VITALS: BP 103/58
--- NOTE | 2018-11-09 16:34 | NUR ---
Follow-up Note RD Recommendation for Physician: - Continue GI soft diet as ordered - Rec Ensure Compact BID to promote protein-calorie intake - The patient meets criteria for MILD protein-calorie malnutrition. Plan of Care: RD following, monitoring for tolerance and adequacy Nutrition reason for involvement: Follow up Primary Diagnose(s): abdominal pain, diarrhea PMH: No H&P in chart Ht: 61in Wt: 112.56lb; 120.19lb; 120lb BMI: 21.3kg/m2 IBW: 105lb RD Assessment: (11/09) Pt was discussed during AM rounds today. Colonoscopy was unremarkable. Currently on IV abx. Placement pending. LBM 11/09. Constipation resolved. Visited pt in the room. Per daughter, pt has had small appetite with ~25% PO intake. No GI complains noted. No chewing or swallowing difficulty reported. Offered Ensure to increase protein-calorie intake; pt was agreeable with plan. Will continue to monitor and follow. Please consult as needed. (11/07) Pt was discussed during AM rounds today. NPO/ clear liquid x 6 days. KUB showed constipation. Pt was getting bowel prep for colonoscopy today. Pt had BM after enema was given. Diet was advanced to GI soft for dinner tonight. Will re-visit pt to assess oral intake on regular diet. Please consult as needed. (10/31) Chart reviewed. Labs and meds reviewed. 83yo F, who was admitted for abdominal pain and diarrhea x [address] abd/ pel showed constipation and rectal fecal impaction. Visited pt in the room. 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 Unknown weight loss. For today, pt denied any nausea or vomiting. No chewing or swallowing difficulty noted. Currently NPO. Will continue to monitor and follow. Please consult as needed. Current Diet: GI soft Malnutrition Evaluation (10/31/2018) The patient meets criteria for MILD protein-calorie malnutrition. Energy intake: <75% of estimated energy requirements for >7 days Weight loss: Unknown per family Fat loss: Mild some clavicle protrusion Muscle loss: Mild slight temporal depression Supporting Evidence: Fluid accumulation: unable to evaluate Functional Status: no changes Diet Education Needs Assessment: Diet education not indicated. Nutrition Care Level: mod Signed: Adamaris Smith, MS, RD, LD
--- NOTE | 2018-11-09 17:40 | NUR ---
pt in bed sleeping,no distress ntoed.
[2018-11-09 20:00] VITALS: BP 111/75
[2018-11-09] MEDS: ATORVASTATIN 40 MG TAB PO SCH (21:17)
[2018-11-10] VITALS: BP 121/73
--- NOTE | 2018-11-10 03:50 | NUR ---
11/09/2018: 1900: Received patient from day nurse, patient is alert and oriented, Hebrew speaking only, daughter at bed side. patient is currently on room air, saturating in the 90s, patient and daughter informed about change of shift and the plan of care for the night verbalized understanding. safety and fall precautions maintained as per hospital protocol: bed in lowest position and locked, needed items beside bed and call chand placed close to patient, patient instructed to use it to call nurses for any assistance needed, patient verbalized understanding. 2200: patient rounded and stable. 11/10/2018: 0000:Dr. Batista saw patient, no new orders, patient rounded and stable, 0200: patient rounded and stable.
[2018-11-10 04:00] VITALS: BP 112/58
[2018-11-10 06:14] LABS: BASOPHILS % 0.4 % (0.0-1.0); EOSINOPHILS # (AUTO) 0.1 (0.0-0.4); EOSINOPHILS % 0.6 % (0.0-6.0); HEMATOCRIT 30.6 % (34.2-44.1); HEMOGLOBIN 10.2 g/dL (12.0-16.0); LYMPHOCYTES # (AUTO) 1.9 (1.0-3.2); LYMPHOCYTES % 17.7 % (18.0-39.1); MEAN CORPUSCULAR HEMOGLOBIN 31.8 pg (28-32); MEAN CORPUSCULAR HGB CONC 33.3 g/dL (31-35); MEAN CORPUSCULAR VOLUME 95.3 fL (81-99); MONOCYTES # (AUTO) 1.2 (0.2-0.8); MONOCYTES % 11.2 % (4.4-11.3); NEUTROPHILS # (AUTO) 7.4 (2.1-6.9); NEUTROPHILS % 69.6 % (38.7-80.0); PLATELET COUNT 168 x10e3/uL (140-360); RED BLOOD COUNT 3.21 x10e6/uL (3.6-5.1); RED CELL DISTRIBUTION WIDTH 12.7 % (11.7-14.4)
[2018-11-10 06:42] LABS: ANION GAP 10.4 mmol/L (8-16); BLOOD UREA NITROGEN 9 mg/dL (7-26); BUN/CREATININE RATIO 15 (6-25); CALCIUM 8.4 mg/dL (8.4-10.2); CARBON DIOXIDE 28 mmol/L (22-29); CHLORIDE 98 mmol/L (98-107); CREATININE, SERUM 0.62 mg/dL (0.57-1.11); EST GLOMERULAR FILTRATION RATE > 60 ML/MIN (60-); GLUCOSE 124 mg/dL (74-118); MAGNESIUM 1.3 MG/DL (1.3-2.1); POTASSIUM 3.4 mmol/L (3.5-5.1); SODIUM 133 mmol/L (136-145)
--- NOTE | 2018-11-10 07:05 | NUR ---
patient endorsed to next shift for continuity of care.
--- NOTE | 2018-11-10 07:20 | NUR ---
PT IN BED SLEEPING ,NO S/S DISCOMFORT
[2018-11-10 08:00] VITALS: BP 119/63
[2018-11-10] MEDS: CARBIDOPA/LEVODOPA 25/250 TAB PO SCH ×3 (09:00→20:19)
[2018-11-10] MEDS: PANTOPRAZOLE SOD 40 MG TABEC PO SCH (09:00)
[2018-11-10] MEDS: DOCUSATE SODIUM LIQD 100 MG/10 ML UDC PO SCH ×2 (09:00→17:00)
[2018-11-10] MEDS: AMLODIPINE BESYLATE 10 MG TAB PO SCH (09:00)
[2018-11-10] MEDS: METOPROLOL TARTRATE 25 MG TAB PO SCH ×2 (09:00→17:00)
[2018-11-10] MEDS: POLYETHYLENE GLYCOL 3350 17 GM PACK PO SCH ×2 (09:00→15:27)
[2018-11-10] MEDS: BALSAM PERU/CASTOR OIL 60 GM OINT...G. TP SCH ×2 (10:22→20:20)
[2018-11-10 12:00] VITALS: BP 105/51
[2018-11-10] MEDS ORDERED: POTASSIUM CHLORIDE 20MEQ/100ML 100 ML IV ONE (13:00)
[2018-11-10] MEDS: LEVOFLOXACIN 500MG/D5W 100ML 100 ML IV SCH (15:06)
[2018-11-10 16:00] VITALS: BP 99/58
[2018-11-10] MEDS: SODIUM CHLORIDE 0.9% 1000ML 1,000 ML IV SCH (16:00)
--- NOTE | 2018-11-10 16:45 | NUR ---
PT TEMP 101.1 SPOKE WITH NOEL GUTIERREZ ,ORDERS WRITTEN,TYLENOL GIVEN
[2018-11-10] MEDS: ACETAMINOPHEN 325 MG TAB PO PRN (16:52)
[2018-11-10] MEDS: SENNA-S TABLET PO SCH (17:00)
[2018-11-10 17:25] LABS: BILIRUBIN,URINE NEGATIVE (NEGATIVE); CLARITY,URINE CLEAR (CLEAR); COLOR,URINE YELLOW (YELLOW); KETONES,URINE NEGATIVE (NEGATIVE); LEUKOCYTE ESTERASE ,URINE NEGATIVE (NEGATIVE); NITRITE,URINE NEGATIVE (NEGATIVE); PROTEIN,URINE DIPSTICK NEGATIVE (NEGATIVE); URINE UROBILINOGEN 0.2 mg/dL (0.2 - 1)
[2018-11-10 17:53] LABS: BACTERIA,URINE FEW /HPF; EPITHELIAL CELLS,URINE MODERATE /LPF; TRANSITIONAL EPI CELLS,URINE FEW
--- NOTE | 2018-11-10 18:16 | NUR ---
PT IN BED RESTING ,NO S/S DISCOMFORT
--- NOTE | 2018-11-10 19:15 | NUR ---
patient received awake, alert, lying quietly in bed. no c/o pain noted. ivf continue to infuse without difficulty. pm assessment complete. family noted at the bedside. patient/family instructed to call for assistance when needed.
[2018-11-10 20:00] VITALS: BP 100/67
[2018-11-10] MEDS: ATORVASTATIN 40 MG TAB PO SCH (20:19)
[2018-11-11] VITALS (7 sets, daily range): BP systolic 100–116; BP diastolic 57–79
--- NOTE | 2018-11-11 07:16 | NUR ---
PATIENT IN BED RESTING WITH HEAD OF BED ELEVATED, NO RESPIRATORY DISTRESS OBSERVED. DURAN IN PLACE WITH CLEAR YELLOW URINE, HEEL PROTECTORS IN PLACE. BED IN LOWER POSITION, CALL LIGHT AT REACH. FAMILY AT BED SIDE.
[2018-11-11] MEDS: PANTOPRAZOLE SOD 40 MG TABEC PO SCH (08:05)
[2018-11-11] MEDS: AMLODIPINE BESYLATE 10 MG TAB PO SCH (09:00)
[2018-11-11] MEDS: BALSAM PERU/CASTOR OIL 60 GM OINT...G. TP SCH ×2 (09:44→21:00)
[2018-11-11] MEDS: SENNA-S TABLET PO SCH ×2 (09:44→17:35)
[2018-11-11] MEDS: METOPROLOL TARTRATE 25 MG TAB PO SCH ×2 (09:44→17:35)
[2018-11-11] MEDS: DOCUSATE SODIUM LIQD 100 MG/10 ML UDC PO SCH ×2 (09:44→17:34)
[2018-11-11] MEDS: CARBIDOPA/LEVODOPA 25/250 TAB PO SCH ×3 (09:44→21:00)
[2018-11-11] MEDS: POLYETHYLENE GLYCOL 3350 17 GM PACK PO SCH (09:44)
[2018-11-11] MEDS: ACETAMINOPHEN 325 MG TAB PO PRN ×2 (10:00→19:28)
--- NOTE | 2018-11-11 13:07 | NUR ---
PATIENT NOTED WITH TEMPERATURE OF 100.1 AX. TYLENOL GIVEN ORDERED. TEMP RECHECKED WITH THE READING OF 99.1. WILL CLOSELY MONITOR.
--- NOTE | 2018-11-11 14:00 | NUR ---
PATIENT OFF UNIT TO OR. Addendum: 11/11/18 at 1418 by Pamela Davidson RN WRONG PATIENT
[2018-11-11] MEDS: SODIUM CHLORIDE 0.9% 1000ML 1,000 ML IV SCH (14:30)
--- NOTE | 2018-11-11 16:14 | NUR ---
IN BED RESTING WITH NO S/S OF DISTRESS. CALL LIGHT AT REACH
--- NOTE | 2018-11-11 16:38 | NUR ---
STILL WAITING ON INSURANCE AUTH FOR [facility]
--- NOTE | 2018-11-11 19:29 | NUR ---
patient medicated with tylenol 650 mg po for c/o right knee pain 5/10 and lactulose 30 cc po for c/o constipation. will continue to monitor.
[2018-11-11] MEDS: ATORVASTATIN 40 MG TAB PO SCH (21:00)
--- NOTE | 2018-11-11 22:30 | NUR ---
Shravan Peraza SHE[employer] OPERATOR [employer] here to see patient. he spoke to daughter at the bedside re: plan of care. labs ordered for am.
[2018-11-12] VITALS: BP 105/55
[2018-11-12] MEDS: SODIUM CHLORIDE 0.9% 1000ML 1,000 ML IV SCH ×2 (00:40→11:01)
[2018-11-12] MEDS: ACETAMINOPHEN/CODEINE 300MG - 30MG TAB PO PRN ×2 (00:40→10:45)
--- NOTE | 2018-11-12 00:40 | NUR ---
patient medicated with tylenol #3 1 po for c/o bilateral lower extremity pain 02/13. patient repositioned for comfort. daughter remains at the bedside.
[2018-11-12] MEDS ORDERED: linzess PO (03:43)
[2018-11-12 04:30] VITALS: BP 107/55
[2018-11-12 06:10] LABS: BASOPHILS # (AUTO) 0.1 (0.0-0.1); BASOPHILS % 0.6 % (0.0-1.0); EOSINOPHILS # (AUTO) 0.1 (0.0-0.4); EOSINOPHILS % 1.4 % (0.0-6.0); HEMATOCRIT 28.8 % (34.2-44.1); HEMOGLOBIN 8.2 g/dL (12.0-16.0); LYMPHOCYTES # (AUTO) 1.3 (1.0-3.2); LYMPHOCYTES % 15.9 % (18.0-39.1); MEAN CORPUSCULAR HEMOGLOBIN 31.7 pg (28-32); MEAN CORPUSCULAR HGB CONC 28.5 g/dL (31-35); MEAN CORPUSCULAR VOLUME 111.2 fL (81-99); MONOCYTES # (AUTO) 0.8 (0.2-0.8); MONOCYTES % 9.5 % (4.4-11.3); NEUTROPHILS # (AUTO) 6.1 (2.1-6.9); PLATELET COUNT 130 x10e3/uL (140-360); RED BLOOD COUNT 2.59 x10e6/uL (3.6-5.1)
[2018-11-12 06:38] LABS: ANION GAP 8.7 mmol/L (8-16); BLOOD UREA NITROGEN 11 mg/dL (7-26); BUN/CREATININE RATIO 19 (6-25); CARBON DIOXIDE 26 mmol/L (22-29); CHLORIDE 104 mmol/L (98-107); CREATININE, SERUM 0.59 mg/dL (0.57-1.11); EST GLOMERULAR FILTRATION RATE > 60 ML/MIN (60-); GLUCOSE 91 mg/dL (74-118); MAGNESIUM 1.5 MG/DL (1.3-2.1); POTASSIUM 3.7 mmol/L (3.5-5.1); SODIUM 135 mmol/L (136-145)
[2018-11-12 07:20] VITALS: BP 103/53
--- NOTE | 2018-11-12 07:20 | NUR ---
PATIENT IN BED RESTING WITH NO S/S OF DISCOMFORT. TELE BOX AND HEEL PROTECTORS IN PLACE. DURAN WITH CLEAR YELLOW URINE. BED IN LOWER POSITION, CALL LIGHT AT REACH.FAMILY AT BED SIDE.
[2018-11-12 07:28] VITALS: BP 103/53
[2018-11-12] MEDS ORDERED: LINACLOTIDE 145 MCG CAPSULE PO SCH (07:30)
[2018-11-12] MEDS: PANTOPRAZOLE SOD 40 MG TABEC PO SCH (07:53)
[2018-11-12] MEDS: AMLODIPINE BESYLATE 10 MG TAB PO SCH (09:00)
[2018-11-12] MEDS: METOPROLOL TARTRATE 25 MG TAB PO SCH ×2 (09:41→17:00)
[2018-11-12] MEDS: DOCUSATE SODIUM LIQD 100 MG/10 ML UDC PO SCH ×2 (09:41→17:00)
[2018-11-12] MEDS: SENNA-S TABLET PO SCH ×2 (09:42→17:00)
[2018-11-12] MEDS: CARBIDOPA/LEVODOPA 25/250 TAB PO SCH ×2 (09:42→15:00)
[2018-11-12] MEDS: POLYETHYLENE GLYCOL 3350 17 GM PACK PO SCH (09:42)
[2018-11-12] MEDS: BALSAM PERU/CASTOR OIL 60 GM OINT...G. TP SCH (09:42)
[2018-11-12 11:04] VITALS: BP 108/61
--- NOTE | 2018-11-12 12:25 | NUR ---
GOT AUTH FOR PT TO GO TO ROOM [address] HUMA FERNANDO.
--- NOTE | 2018-11-12 14:30 | NUR ---
PATIENT HAD AN ADMISSION TO [facility]. DR FINN'S PA CALLED FOR DISCHARGE ORDER. HE STATED THAT HE WILL COME AN SEE THE PATIENT BEFORE DISCHARGE. PATIENT'S DAUGHTER NOTIFIED.
[2018-11-12] MEDS ORDERED: MAGNESIUM SULFATE 2GM/50ML 50 ML IV NR (14:45)
[2018-11-12 15:17] VITALS: BP 109/53
[2018-11-12] MEDS ORDERED: MIRALAX17 GM PO (15:38)
[2018-11-12] MEDS ORDERED: SENNA S TABLET1 EACH PO (15:38)
[2018-11-12] MEDS ORDERED: LOPRESSOR25 MG PO (15:38)
[2018-11-12] MEDS ORDERED: [UNRECOGNIZED DRUG - OTHER] PR (15:38)
[2018-11-12] MEDS ORDERED: Atorvastatin PO (15:38)
[2018-11-12] MEDS ORDERED: TYLENOL # 31 EA PO (15:38)
[2018-11-12] MEDS ORDERED: COLACE100 MG/10 PO (15:38)
[2018-11-12] MEDS ORDERED: PROTONIX40 MG/ML PO (15:38)
[2018-11-12] MEDS ORDERED: NORVASC10 MG PO (15:38)
[2018-11-12] MEDS ORDERED: CARBIDOPA-LEVO1 EAC2 PO (15:38)
[2018-11-12] MEDS ORDERED: VENELEX OINTMEN60 GM TP (15:38)
[2018-11-12] MEDS ORDERED: LACTULOSE20 GM/30 M PO (15:38)
[2018-11-12] MEDS ORDERED: ACETAMINOPHEN325 M1 PO (15:38)
[2018-11-12 15:44] LABS: BAND NEUTROPHILS % (MANUAL) 2 %; LYMPHOCYTES % (MANUAL) 19 % (19-48); MONOCYTES % (MANUAL) 8 % (3.4-9.0); NEUTROPHILS % (MANUAL) 71 % (40-74)
[2018-11-12 15:45] LABS: PLATELET ESTIMATE SLIGHTLY DECREASED; PLATELET MORPHOLOGY COMMENT NORMAL
[2018-11-12 15:46] LABS: RBC MORPHOLOGY COMMENT ABNORMAL
--- NOTE | 2018-11-12 18:26 | NUR ---
PATIENT IS ABOUT TO BE TRANSFERRED TO [facility]. REPORT CALLED AND GIVEN TO RECEIVING NURSE. PATIENT'S DAUGHTER AT BED SIDE AT THIS TIME. AWAITING AMBULANCE FOR TRANSPORTATION.
--- NOTE | 2018-11-12 19:25 | NUR ---
patient discharged to [facility] via ambulance at this time. report called to Liz KRISHNA by Brandon KRISHNA. BP 112/57 HR 111 RR 20 TEMP 99.0 (ax) at time of discharge. daughter at patients side and will ride in ambulance with patient when transported.
--- NOTE | 2018-11-13 16:15 | Discharge Summary ---
CONSULTING PHYSICIANS: Include: 1. Dr. Darnell Tellez. 2. Dr. Theo Torrez. 3. Dr. Gene Batista, Gastroenterology. PERTINENT HISTORY AND PHYSICAL FINDINGS: The patient is an 83-year-old female, who was admitted with complaints of fecal incontinence and soft stools for 6 days. She denied any nausea, vomiting, fever, sick contacts, or antibiotic use. On admission, she complained of abdominal pain, which was intermittent. PAST MEDICAL HISTORY: Includes hypertension, gastroesophageal reflux disease, hyperlipidemia, Parkinson disease, skin cancer, and chronic constipation. ADMITTING DIAGNOSES: 1. Fecal incontinence with diarrhea. 2. Hypertension. 3. Hyperlipidemia. 4. Gastroesophageal reflux disease. 5. Parkinson disease. 6. Urinary tract infection, present on admission. 7. Anemia. DISCHARGE DIAGNOSES: 1. Status post massive fecal impaction. 2. Hypertension. 3. Parkinson disease. 4. Urinary tract infection with Strep bovis. 5. Urinary retention. 6. Generalized weakness/ambulatory dysfunction. 7. Hypokalemia. 8. Bilateral knee pain. 9. Hypomagnesemia. 10. Anemia. 11. Severe protein-calorie malnutrition. Upon admission, it was realized that the patient was constipated and had rectal fecal impaction per CT of the abdomen and GI was consulted. The patient had digital disimpaction, received lactulose, MiraLax, Colace, and enema for the fecal impaction with overflow diarrhea. On November 01, BUN 16, creatinine 0.73, magnesium 1.7, and hemoglobin A1c 5.4%. Iron 45, total iron binding capacity 262, percent saturation 17, B12 of 775, and folate 14.4. TSH 1.18. Urine culture positive for greater than 100,000 colonies per mL strep. C difficile toxin was negative. Fecal occult blood test was negative. Urinalysis revealed 6-10 wbc's. Rocephin was used for urinary tract infection. The patient had a persistent fecal impaction and the colonoscopy that was scheduled for November 05 could not be done. Manual disimpaction and several enemas were continued. GoLYTELY and magnesium citrate were also used. On November 04, she received 3 bottles of magnesium citrate and was still not clear. Milk of Magnesia was also added. Over time, the fecal impaction improved. The patient continued to receive Sinemet for Parkinson disease and Levaquin for the urinary tract infection. Received physical therapy for the generalized weakness. Electrolytes were monitored and repleted p.r.n. The patient will discharge with her Miner catheter, has to remain in several weeks per Urology. On November 07, the patient had echocardiogram, which showed estimated left ventricular ejection fraction 30% to 35%. The patient is to continue Linzess. Unable to obtain review of systems due to underlying dementia. Physical exam remains unchanged. She does have a loud holosystolic murmur. DISPOSITION: [facility]. The patient to remain on a GI soft diet. Activity level as tolerated. PCP is listed as Dr. Rafy Cruz. Hopefully, the patient will be followed by AK[facility]IL Gu as well as . at the [facility]. Dictated by Shravan Peraza NP Titus Salinas MD HWP/MACIELL /[id number]
== END 2018-11-12 19:25 | DRG 391 ==
LOC: ER 17:03 → ERHOLD 21:26 → IMCU 22:22 → OBSVTOIN 11-01 20:27 → MED/SURG3 11-02 18:29
PROVIDERS: ADMIT Internal Medicine; ATTEND Internal Medicine
PROC: 0DJD8ZZ Inspection of Lower Intestinal Tract, Via Natural or Artificial Opening Endoscopic (ICD-10-PCS; principal; 2018-11-07 13:30)
DX: K59.09 Other constipation (principal); E43 Unspecified severe protein-calorie malnutrition; I50.22 Chronic systolic (congestive) heart failure; N39.0 Urinary tract infection, site not specified; I11.0 Hypertensive heart disease with heart failure; D63.8 Anemia in other chronic diseases classified elsewhere; R33.9 Retention of urine, unspecified; B95.4 Other streptococcus as the cause of diseases classified elsewhere; N28.1 Cyst of kidney, acquired; K21.9 Gastro-esophageal reflux disease without esophagitis; E87.6 Hypokalemia; E83.51 Hypocalcemia; G20 Parkinson's disease; E78.5 Hyperlipidemia, unspecified; E83.42 Hypomagnesemia; R53.1 Weakness; R26.2 Difficulty in walking, not elsewhere classified; M25.562 Pain in left knee; M25.561 Pain in right knee
CPT/HCPCS: 36415; 45378; 74018; 74019; 74177; 80048; 80053; 80076; 81001; 82270; 82550; 82553; 82607; 82728; 82746; 83036; 83540; 83735; 83880; 84100; 84132; 84439; 84443; 84466; 84484; 85025; 85045; 85610; 85730; 87040; 87086; 87186; 87493; 93306; 96361; 97139; 99284; G0378; J0360; J0696; J1940; J1956; J2001; J2405; J3475; J3480; J7030; J7050; Q9967

== ENCOUNTER 2018-12-02 16:37 | Inpatient (IN) | payer MEDICARE, OTHER ==
[~2018-12-02] VITALS: Ht 154.9 cm; Wt 55.1 kg
[~2018-12-02 16:37] MED LIST: ACETAMINOPHEN325 M1 PO; Atorvastatin PO; CARBIDOPA-LEVO1 EAC2 PO; COLACE100 MG/10 PO; LACTULOSE20 GM/30 M PO; LOPRESSOR25 MG PO; MIRALAX17 GM PO; NORVASC10 MG PO; PROTONIX40 MG/ML PO; SENNA S TABLET1 EACH PO; TYLENOL # 31 EA PO; VENELEX OINTMEN60 GM TP; [UNRECOGNIZED DRUG - OTHER] PR; linzess PO
[2018-12-02 17:07] LABS: BASOPHILS % 0.1 % (0.0-1.0); HEMATOCRIT 35.2 % (34.2-44.1); HEMOGLOBIN 10.9 g/dL (12.0-16.0); LYMPHOCYTES # (AUTO) 1.5 (1.0-3.2); LYMPHOCYTES % 10.8 % (18.0-39.1); MEAN CORPUSCULAR VOLUME 103.2 fL (81-99); MONOCYTES # (AUTO) 0.9 (0.2-0.8); MONOCYTES % 6.4 % (4.4-11.3); NEUTROPHILS # (AUTO) 11.1 (2.1-6.9); PLATELET COUNT 224 x10e3/uL (140-360); RED BLOOD COUNT 3.41 x10e6/uL (3.6-5.1)
[2018-12-02 17:14] LABS: INR 1.18; PROTHROMBIN TIME 15.6 seconds (11.9-14.5)
[2018-12-02 17:15] LABS: PARTIAL THROMBOPLASTIN TIME 29.2 seconds (23.8-35.5)
[2018-12-02 17:24] LABS: ALBUMIN 2.1 g/dL (3.5-5.0); ALBUMIN/GLOBULIN RATIO 0.4 (0.8-2.0); ANION GAP 13.4 mmol/L (8-16); CALCIUM 8.8 mg/dL (8.4-10.2); CREATININE, SERUM 1.29 mg/dL (0.57-1.11); POTASSIUM 4.4 mmol/L (3.5-5.1)
--- NOTE | 2018-12-02 17:40 | Diagnostic Imaging Report ---
EXAMINATION: CHEST SINGLE (PORTABLE) COMPARISON: None INDICATION: ^CHEST PAIN ^[id number] ^1730 ^Y DISCUSSION: Frontal view of the chest obtained at 1728 hours. HEART AND MEDIASTINUM: The heart is mildly enlarged. The aorta is ectatic LINES: None. LUNGS: The lungs are mildly hyperinflated with bronchial wall thickening. No consolidation. No interstitial thickening. PLEURA: No pleural effusion or pneumothorax. BONES AND SOFT TISSUES: No focal osseous lesion. The soft tissues are normal. IMPRESSION: Mild cardiomegaly and pulmonary hyperinflation. Bronchial wall thickening may be the result of acute or chronic bronchitis. Signed by: Dr. Seng Enrique MD on 12/02/2018 5:37 PM
--- NOTE | 2018-12-02 17:40 | NUR ---
RADIOLOGY AT BEDSIDE FOR CXR AT THIS TIME.
[2018-12-02 17:57] LABS: CLARITY,URINE HAZY (CLEAR); COLOR,URINE YELLOW (YELLOW); LEUKOCYTE ESTERASE ,URINE 1+ (NEGATIVE); NITRITE,URINE NEGATIVE (NEGATIVE)
[2018-12-02 17:58] LABS: BILIRUBIN,URINE NEGATIVE (NEGATIVE); KETONES,URINE NEGATIVE (NEGATIVE); PROTEIN,URINE DIPSTICK 1+ (NEGATIVE); URINE UROBILINOGEN 0.2 mg/dL (0.2 - 1)
[2018-12-02] MEDS ORDERED: SODIUM CHLORIDE 0.9% 1000ML 1,000 ML IV STA (18:02)
[2018-12-02] MEDS ORDERED: VANCOMYCIN 1GM/NS 250 ML 250 ML IV ONE (18:15)
[2018-12-02] MEDS ORDERED: CEFEPIME 2 GM/NS 0.9% 100 ML 100 ML IV ONE (18:15)
[2018-12-02 18:16] LABS: BACTERIA,URINE MANY /HPF; MUCUS,URINE MODERATE (RARE)
--- NOTE | 2018-12-02 18:35 | NUR ---
GERARD LALA AT BEDSIDE FOR PT EVAL AT THIS TIME
[2018-12-02] MEDS ORDERED: ACETAMINOPHEN 1000 MG/100 ML IV ONE (19:09)
--- NOTE | 2018-12-02 19:46 | Diagnostic Imaging Report ---
CT BRAIN WO HISTORY: Altered mental status COMPARISON: None. Technique: Noncontrast axial scans were obtained from skull base to the vertex. Coronal and sagittal reconstructions obtained from the axial data. One or more of the following dose reduction techniques were used: Automated exposure control, adjustment of the mA and/or kV according to patient size, and/or utilization of iterative reconstruction technique. DISCUSSION: Scalp/Skull: Unremarkable. Brain sulci: Mildly prominent. Ventricles: Compensatory dilatation. Extra-axial spaces: No masses or fluid collections. Carotid siphon calcifications are present. Parenchyma: Moderate bilateral deep white matter hypodensity is likely chronic microvascular ischemic change. Otherwise, no masses, hemorrhage, or large vascular territory acute infarct. Dural sinuses: No abnormal densities. Sellar/Suprasellar region: Intact. Skull base: Intact. Incidental findings: The right ocular lens is thinned. IMPRESSION: 1. No acute intracranial abnormalities. 2. Moderate supratentorial chronic microvascular ischemic change. Mild generalized cerebral volume loss. Signed by: Dr. Ted Messina M.D. on 12/02/2018 7:43 PM
[2018-12-02] MEDS ORDERED: SODIUM CHLORIDE 0.9% 1000ML 1,000 ML ONE (19:52)
[2018-12-02] MEDS ORDERED: SODIUM CHLORIDE 0.9% 1000ML 1,000 ML IV ONE (20:00)
[2018-12-02] MEDS ORDERED: SODIUM CHLORIDE 0.9% 1000ML 1,000 ML IV SCH (21:15)
[2018-12-02] MEDS: SODIUM CHLORIDE 0.9% 1000ML 1,000 ML IV SCH (21:25)
--- NOTE | 2018-12-02 21:30 | NUR ---
PT RESTING IN BED WITH EYES CLOSED, WEDGED ON RT SIDE, BREATHING EVEN/UNLABORED, NAD NOTED.
[2018-12-02] MEDS: CEFEPIME 2 GM/NS 0.9% 100 ML 100 ML IV SCH (21:45)
[2018-12-02] MEDS ORDERED: ACETAMINOPHEN 325 MG TAB PO PRN (21:45)
[2018-12-02] MEDS ORDERED: ONDANSETRON HCL INJ 2MG/ML 2ML 2 MG/ML VIAL IV PRN (21:45)
[2018-12-02] MEDS: VANCOMYCIN 1GM/NS 250 ML 250 ML IV SCH (21:45)
[2018-12-03] VITALS (7 sets, daily range): BP systolic 91–113; BP diastolic 52–58
--- NOTE | 2018-12-03 00:30 | NUR ---
patient received from er. patient is lethargic, response to voice and open her eye, none verbal noted. Resp even and unlabored. No acute distress noted. left buttock pressure ulcer stage 3 noted, sacral wound unstageable noted. nunez in place, clear and yellow urine. family at bed side. call light within reach. bed low/locked. continue to monitor closely
--- NOTE | 2018-12-03 01:15 | NUR ---
applied compliance monitor to patient box 20. Patient is running SR PAC. complete dressing change to left buttock and sacral wound. continue to monitor.
[2018-12-03] MEDS: SODIUM CHLORIDE 0.9% 1000ML 1,000 ML IV SCH (05:10)
[2018-12-03 05:19] LABS: BASOPHILS % 0.1 % (0.0-1.0); EOSINOPHILS # (AUTO) 0.1 (0.0-0.4); EOSINOPHILS % 0.5 % (0.0-6.0); HEMATOCRIT 27.8 % (34.2-44.1); HEMOGLOBIN 8.4 g/dL (12.0-16.0); LYMPHOCYTES % 16.8 % (18.0-39.1); MEAN CORPUSCULAR HEMOGLOBIN 31.5 pg (28-32); MEAN CORPUSCULAR HGB CONC 30.2 g/dL (31-35); MEAN CORPUSCULAR VOLUME 104.1 fL (81-99); MONOCYTES # (AUTO) 0.7 (0.2-0.8); MONOCYTES % 6.1 % (4.4-11.3); NEUTROPHILS # (AUTO) 9.1 (2.1-6.9); NEUTROPHILS % 75.9 % (38.7-80.0); PLATELET COUNT 167 x10e3/uL (140-360); RED BLOOD COUNT 2.67 x10e6/uL (3.6-5.1)
[2018-12-03 05:43] LABS: ALANINE AMINOTRANSFERASE 87 IU/L (0-55); ALBUMIN 1.6 g/dL (3.5-5.0); ALBUMIN/GLOBULIN RATIO 0.4 (0.8-2.0); ALKALINE PHOSPHATASE 86 IU/L (40-150); ANION GAP 9.1 mmol/L (8-16); BLOOD UREA NITROGEN 52 mg/dL (7-26); BUN/CREATININE RATIO 63 (6-25); CALCIUM 7.9 mg/dL (8.4-10.2); CARBON DIOXIDE 26 mmol/L (22-29); CHLORIDE 120 mmol/L (98-107); CREATININE, SERUM 0.82 mg/dL (0.57-1.11); EST GLOMERULAR FILTRATION RATE > 60 ML/MIN (60-); GLUCOSE 122 mg/dL (74-118); POTASSIUM 4.1 mmol/L (3.5-5.1); SODIUM 151 mmol/L (136-145)
--- NOTE | 2018-12-03 07:11 | NUR ---
pt alert resp even and unlabored at this time no distress noted, pt has no c/o pain when asked, pt able to make needs known pt has call light in reach, will cont to monitor
[2018-12-03] MEDS: VANCOMYCIN 1GM/NS 250 ML 250 ML IV SCH ×2 (08:50→23:50)
[2018-12-03] MEDS: CEFEPIME 2 GM/NS 0.9% 100 ML 100 ML IV SCH ×2 (09:45→22:43)
[2018-12-03] MEDS ORDERED: LACTULOSE SYRUP 20 GM/30 ML UDC PO PRN (15:30)
[2018-12-03] MEDS: D5.45%NS/KCL 20MEQ 1,000 ML IV SCH (16:34)
[2018-12-03] MEDS: DOCUSATE SODIUM LIQD 100 MG/10 ML UDC PO SCH (17:30)
[2018-12-03] MEDS: METOPROLOL TARTRATE 25 MG TAB PO SCH (17:30)
[2018-12-03] MEDS: OYST-CAL-D 500MG TABLET PO SCH (17:34)
--- NOTE | 2018-12-03 19:11 | NUR ---
report given to oncoming nurse, for cont. care.
[2018-12-03] MEDS: CARBIDOPA/LEVODOPA 25/250 TAB PO SCH (22:24)
[2018-12-03] MEDS: ATORVASTATIN 40 MG TAB PO SCH (22:24)
[2018-12-04] VITALS (7 sets, daily range): BP systolic 94–171; BP diastolic 53–99
[2018-12-04] MEDS: D5.45%NS/KCL 20MEQ 1,000 ML IV SCH (04:28)
[2018-12-04 06:02] LABS: BASOPHILS % 0.1 % (0.0-1.0); EOSINOPHILS # (AUTO) 0.3 (0.0-0.4); EOSINOPHILS % 1.9 % (0.0-6.0); HEMATOCRIT 28.7 % (34.2-44.1); HEMOGLOBIN 8.5 g/dL (12.0-16.0); LYMPHOCYTES # (AUTO) 1.7 (1.0-3.2); LYMPHOCYTES % 11.9 % (18.0-39.1); MEAN CORPUSCULAR HEMOGLOBIN 31.7 pg (28-32); MEAN CORPUSCULAR HGB CONC 29.6 g/dL (31-35); MEAN CORPUSCULAR VOLUME 107.1 fL (81-99); MONOCYTES # (AUTO) 0.8 (0.2-0.8); MONOCYTES % 5.3 % (4.4-11.3); NEUTROPHILS # (AUTO) 11.6 (2.1-6.9); PLATELET COUNT 179 x10e3/uL (140-360); RED BLOOD COUNT 2.68 x10e6/uL (3.6-5.1); RED CELL DISTRIBUTION WIDTH 13.7 % (11.7-14.4)
[2018-12-04 06:26] LABS: BLOOD UREA NITROGEN 31 mg/dL (7-26); BUN/CREATININE RATIO 46 (6-25); CALCIUM 8.2 mg/dL (8.4-10.2); CARBON DIOXIDE 26 mmol/L (22-29); CHLORIDE 119 mmol/L (98-107); CREATININE, SERUM 0.67 mg/dL (0.57-1.11); EST GLOMERULAR FILTRATION RATE > 60 ML/MIN (60-); GLUCOSE 134 mg/dL (74-118); MAGNESIUM 2.1 MG/DL (1.3-2.1); SODIUM 148 mmol/L (136-145)
[2018-12-04 06:29] LABS: ALBUMIN 1.6 g/dL (3.5-5.0); BILIRUBIN,DIRECT 0.2 mg/dL (0.0-0.5)
[2018-12-04 06:48] LABS: THYROID STIMULATING HORMONE 1.095 uIU/mL (0.350-4.940)
[2018-12-04 07:05] LABS: B-TYPE NATRIURETIC PEPTIDE2 351.2 pg/mL (0-100)
--- NOTE | 2018-12-04 07:15 | NUR ---
pt asleep resp even and unlabored at this time no distress noted, pt nunez to gravity, call light in reach, will cont to monitor.
[2018-12-04] MEDS: PANTOPRAZOLE SOD 40 MG TABEC PO SCH (07:30)
[2018-12-04] MEDS: OYST-CAL-D 500MG TABLET PO SCH ×2 (09:00→18:11)
[2018-12-04] MEDS: DOCUSATE SODIUM LIQD 100 MG/10 ML UDC PO SCH ×2 (09:00→18:11)
[2018-12-04] MEDS: CARBIDOPA/LEVODOPA 25/250 TAB PO SCH ×3 (09:00→21:49)
[2018-12-04] MEDS: VANCOMYCIN 1GM/NS 250 ML 250 ML IV SCH ×2 (09:07→22:30)
[2018-12-04] MEDS: METOPROLOL TARTRATE 25 MG TAB PO SCH ×2 (09:07→18:12)
[2018-12-04] MEDS: CEFEPIME 2 GM/NS 0.9% 100 ML 100 ML IV SCH ×2 (11:00→21:49)
[2018-12-04] MEDS ORDERED: DEXTROSE 5% 500ML 500 ML IV SCH (13:00)
--- NOTE | 2018-12-04 19:17 | NUR ---
report given to oncoming nurse, for continued care.
--- NOTE | 2018-12-04 20:54 | Consultation ---
DATE OF CONSULTATION: 12/04/2018 Neurology Consult Note HISTORY OF PRESENT ILLNESS: Ms. Cruz is an 83-year-old right-hand dominant woman with past medical history significant for hypertension, hyperlipidemia, Parkinson disease, and dementia, admitted to [facility] on December 02, 2018 with multiple symptoms. The Neurology Service is consulted for evaluation and treatment of worsened confusion and generalized weakness. According to the patient's daughter, who is at the bedside, the patient had a period of prolonged diarrhea (14 to 15 days) immediately prior to this admission. The patient's daughter reports Ms. Cruz underwent colonoscopy, which was "okay." At the time of her admission on December 02, 2018, the patient had worsening confusion. Ms. Cruz does have a diagnosis of dementia. There is dtem-ck-iyctujud cognitive impairment at baseline. However, over the past several days, Ms. Cruz has failed to recognize her children. Furthermore, her daughter endorses visual hallucinations. Specifically, the patient has been speaking to her parents, who are long . In the past several days, the patient has experienced 2 falls. Ms. Cruz reportedly has poor balance and an unsteady gait at baseline. These falls occurred while the patient was ambulating without assistance during the night. According to the patient's daughter, Ms. Cruz's knees would "just gave out" and the patient would fall to the floor. Over the past few days, the patient's poor balance and unsteadiness of gait have worsened. Ms. Cruz's daughter reports generalized weakness. Other than the recent period of prolonged diarrhea described above, Ms. Cruz's daughter does not report fevers or chills, nausea, vomiting, productive cough, burning with urination, urinary frequency, or urinary urgency. She does describe decreased oral intake of both liquids and solids for several days. Ms. Cruz does have a diagnosis of Parkinson disease. However, the patient's daughter is unable to provide any detailed information regarding this diagnosis. REVIEW OF SYSTEMS: Unable to obtain secondary to the patient being encephalopathic and somnolent. PAST MEDICAL HISTORY: Hypertension, hyperlipidemia, gastroesophageal reflux disease, irritable bowel syndrome, skin cancer, Parkinson disease, dementia. PAST SURGICAL HISTORY: Resection of skin cancer, EGD/colonoscopy, bilateral cataract removal. Past hospitalizations: Surgeries/procedures as listed, numerous other hospitalizations, childbirth. FAMILY MEDICAL HISTORY: Hypertension, diabetes mellitus. The patient's father had dementia. SOCIAL HISTORY: Ms. Cruz is a . She divides her time between her daughter's homes. One daughter lives in [place], [place]. The other daughter resides in [facility]. All of the patient's physicians are reportedly in [place], [place]. Ms. Cruz is retired. There is no reported current or prior tobacco, alcohol, or recreational drug use. HOME MEDICATIONS: Reviewed. Please see list of home medications available in the electronic medical record. HOSPITAL MEDICATIONS: Reviewed. Please see the list of hospital medications available in the electronic medical record. ALLERGIES: NO KNOWN DRUG ALLERGIES. NO KNOWN FOOD ALLERGIES. NO KNOWN ALLERGIES TO LATEX. NO KNOWN ALLERGIES TO IODINE OR OTHER CONTRAST MATERIALS. PHYSICAL EXAMINATION: VITAL SIGNS: Height 61 inches, weight 126 pounds, BMI 23.8 kg/m2, blood pressure 107/55 mmHg, pulse 87 beats per minute, respiratory rate 16 breaths per minute, oxygen saturation 98% on room air. GENERAL: The patient is drowsy. She opens her eyes briefly to verbal stimuli. Mildly diaphoretic. HEENT: Normocephalic, atraumatic. Pupils are surgical. Moist mucous membranes. NECK: Supple. No appreciable thyromegaly. No appreciable carotid bruits. CARDIOVASCULAR: S1, S2, regular rate and rhythm. No murmurs, rubs, or gallops. RESPIRATORY: Clear to auscultation bilaterally. No wheezes, rhonchi, or rales. EXTREMITIES: The skin is warm and dry. No clubbing, cyanosis, or edema. The posterior tibial and dorsalis pedis pulses are 2+ and symmetric. SKIN: No rashes or lesions. NEUROLOGIC/MEMORY/ATTENTION: The patient is drowsy. She opens her eyes briefly to verbal stimuli. Oriented to person only. CRANIAL NERVES: Cranial nerve one-not tested. Cranial nerve two, three, four, and six-pupils are surgical. Extraocular movements are grossly intact. No nystagmus. Cranial nerve 5-sensation to light touch is intact in the bilateral V1 through V3 distributions. Strength in the temporalis and masseter muscles appears to be within normal limits. Cranial nerve 7-the face is symmetric as are all facial movements. Strength appears to be within normal limits. Cranial nerve 8-hearing is intact to voice. Cranial nerve 9, 10-the soft palate elevates equally and symmetrically. Cranial nerve 12-the tongue protrudes midline and moves symmetrically from edev-kn-zthb. STRENGTH: Bulk is diminished throughout. Strength is grossly 3/5 in the arms. Strength is grossly 2/5 in the legs. Tone is increased in the left arm and left leg. DTRs: Deep tendon reflexes are trace and symmetric at the triceps, biceps, brachioradialis, and patellas. Deep tendon reflexes are absent and symmetric at the Achilles. Plantar responses are mute bilaterally. SENSATION: Sensation is grossly intact to light touch in both arms and both legs. CEREBELLAR: Unable to assess secondary to the patient being encephalopathic and somnolent. GAIT: Deferred. SPEECH: Spontaneous speech is limited, mildly dysarthric. Aphasia is not appreciated. INVOLUNTARY MOVEMENTS: None. PRONATOR DRIFT: As per motor exam. LABORATORY DATA: The most recent basic metabolic panel is significant for an elevated sodium of 148, and elevated chloride of 119, and anion gap of 7.0, and elevated BUN of 31, and an elevated serum glucose of 134. Calcium is mildly decreased at 8.2. Hepatic function panel reveals an elevated AST of 53, low total protein of 5.1, and low albumin of 1.6. The hemoglobin A1c is 5.2. Ammonia 44. TSH 1.095, free T4 0.90. B-natriuretic peptide 110.0. Lactic acid 17.9. The CBC with differential and platelets reveals an elevated white blood cell count of 14.46 with a left shift with 80.0% neutrophils, 11.9% lymphocytes, 5.3% monocytes, 1.9% eosinophils, and 0.1% basophils. The hemoglobin and hematocrit are 8.5 and 28.7, respectively. The platelet count is 179. PT 15.6, INR 1.18, PTT 29.2. A urinalysis was significant for hazy urine with 1+ protein, 1+ blood, 1+ leukocyte esterase, 6-10 red blood cells, 11-20 white blood cells, and many urine bacteria. A urine culture has grown gram-negative bacilli. Blood cultures revealed no growth after 24 hours. DIAGNOSTIC STUDIES: Electrocardiogram of 12/02/2018: Sinus tachycardia at 114 beats per minute with possible premature atrial complexes with aberrant conduction. Left ventricular hypertrophy. Chest x-ray on 12/02/2018: Mild cardiomegaly and pulmonary hyperinflation. Bronchial wall thickening may be the result of acute or chronic bronchitis. CT of the brain without contrast on 12/02/2018: On my review, there is no evidence of recent large territorial ischemia, hemorrhage, mass, or mass effect. There is diffuse cerebral atrophy with compensatory dilatation of the ventricles, appropriate for age. The findings compatible with [id number]-bd-[id number] chronic small vessel ischemic disease. Bilateral carotid artery ultrasound with Doppler on 12/04/2018: There is atherosclerosis without hemodynamically significant stenosis at the bilateral carotid bulbs and bilateral carotid bifurcations. Flow is antegrade in the bilateral vertebral arteries. ASSESSMENT AND PLAN: Ms. Cruz is an 83-year-old right-hand dominant woman with an extensive past medical history, admitted to [facility] on December 02, 2018 with worsening confusion and generalized weakness following a recent bout of prolonged diarrhea and decreased oral intake. The patient has undergone a thorough neurological examination with findings detailed above. The patient's laboratory data and other diagnostic studies have been reviewed and are documented above. In my opinion, the patient's urosepsis in combination with the preceding prolonged diarrhea and decreased oral intake is the etiology of her current symptoms. RECOMMENDATIONS: Are as follows: 1. Follow up the results of the urine and other cultures. Continue treatment with intravenous antibiotics. 2. Continue fluid resuscitation with intravenous fluids. Encourage oral intake of both solids and liquids. 3. Limit treatment with sedative/hypnotic and pain medications as these will alter the patient's sensorium. 4. Utilize environmental cues to combat delirium. 5. When once medically stable, a physical therapy evaluation should be requested. 6. For the patient's known diagnosis of Parkinson disease, continue her home medication of carbidopa-levodopa 25-250 mg one tablet by mouth three times daily. 7. Defer treatment of the remaining medical comorbidities to the primary and other services following the patient. Thank you for this consultation. There are no recommendations from the Neurology Service at this time. Please call again with any questions or concerns. TIME SPENT: 50 minutes. Carmen Ryder MD CP/MARITA /[id number]
[2018-12-04] MEDS: ATORVASTATIN 40 MG TAB PO SCH (21:49)
[2018-12-05] VITALS (8 sets, daily range): BP systolic 99–108; BP diastolic 56–63
[2018-12-05 04:13] LABS: BASOPHILS % 0.1 % (0.0-1.0); EOSINOPHILS # (AUTO) 0.3 (0.0-0.4); EOSINOPHILS % 2.3 % (0.0-6.0); HEMATOCRIT 29.8 % (34.2-44.1); HEMOGLOBIN 9.1 g/dL (12.0-16.0); LYMPHOCYTES # (AUTO) 1.8 (1.0-3.2); LYMPHOCYTES % 13.2 % (18.0-39.1); MEAN CORPUSCULAR HEMOGLOBIN 31.3 pg (28-32); MEAN CORPUSCULAR HGB CONC 30.5 g/dL (31-35); MEAN CORPUSCULAR VOLUME 102.4 fL (81-99); MONOCYTES # (AUTO) 0.5 (0.2-0.8); MONOCYTES % 3.8 % (4.4-11.3); NEUTROPHILS # (AUTO) 10.8 (2.1-6.9); NEUTROPHILS % 80.1 % (38.7-80.0); PLATELET COUNT 191 x10e3/uL (140-360); RED BLOOD COUNT 2.91 x10e6/uL (3.6-5.1); RED CELL DISTRIBUTION WIDTH 13.3 % (11.7-14.4)
[2018-12-05 04:33] LABS: ANION GAP 10.1 mmol/L (8-16); BLOOD UREA NITROGEN 23 mg/dL (7-26); BUN/CREATININE RATIO 38 (6-25); CALCIUM 8.4 mg/dL (8.4-10.2); CARBON DIOXIDE 24 mmol/L (22-29); CHLORIDE 113 mmol/L (98-107); CREATININE, SERUM 0.61 mg/dL (0.57-1.11); EST GLOMERULAR FILTRATION RATE > 60 ML/MIN (60-); GLUCOSE 104 mg/dL (74-118); POTASSIUM 4.1 mmol/L (3.5-5.1); SODIUM 143 mmol/L (136-145)
--- NOTE | 2018-12-05 07:00 | NUR ---
BEDSIDE REPORT TAKEN FROM COMMERCIAL CREDIT REVIEWER RN. PT DENIES NEEDS AT THIS TIME.
[2018-12-05] MEDS: METOPROLOL TARTRATE 25 MG TAB PO SCH ×2 (08:43→17:34)
[2018-12-05] MEDS: PANTOPRAZOLE SOD 40 MG TABEC PO SCH (08:54)
[2018-12-05] MEDS: DOCUSATE SODIUM LIQD 100 MG/10 ML UDC PO SCH ×2 (08:54→17:32)
[2018-12-05] MEDS: CARBIDOPA/LEVODOPA 25/250 TAB PO SCH ×3 (08:54→21:59)
[2018-12-05] MEDS: OYST-CAL-D 500MG TABLET PO SCH ×2 (08:54→17:34)
[2018-12-05] MEDS ORDERED: AMLODIPINE BESYLATE 10 MG TAB PO SCH (09:00)
--- NOTE | 2018-12-05 09:14 | NUR ---
PT OFF UNIT TO RADIOLOGY FOR MRI
--- NOTE | 2018-12-05 09:35 | NUR ---
PT BACK TO UNIT FROM RADIOLOGY. MRI CANCELLED. PT CONTRACTED. PT DENIED NEEDS AT THIS TIME. BED ALARM IS ON. FAMILY AT BED SIDE. CALL ESCALANTE WITH IN REACH.
[2018-12-05] MEDS: CEFEPIME 2 GM/NS 0.9% 100 ML 100 ML IV SCH (10:14)
--- NOTE | 2018-12-05 14:18 | NUR ---
CASE MANAGEMENT ASSESSMENT Instructional Design Technologist to bedside to discuss plan of care with patient/family. CM/SW role and care transitions discussed. Anticipated discharge plan discussed along with duration of care. CM/SW discussed patients right to make decisions in care. CM/SW work hours given. Spoke with pt's son Kory and STEVE Macarena Cruz at bedside Patient lives: with her daughter Admit/Transfer: thru ED; came from [facility] for syncopal episode Hospital/ER visits since last admit: was recently discharged from this facility on November 12, 2018 POA/Emergency contact: Daughter Sasha Summers [phone], STEVE Cruz [phone] Current/Previous Home Health: none PCP/Follow-up Care: Dr. Rafy Cruz Current/Previous DME: none; daughter states that pt is bedbound currently; does not have any equipment at home. Stated pt was walking 1.5-2 months ago. Medications (referring to index hospitalization or the first time you were in the hospital) a. Were changes made in your medications when you were in the hospital on November 2018? b. Did you understand the changes? c. Were you able to obtain your new medications right away? pt went to SNF d. Were you able to take your medications like the doctor wanted you to? e. Did the hospital give you an accurate, easy to understand list of medications when you left? Scale of 1-10 how comfortable does patient feel with disease management in outpatient setting: Other Services: none Employment Status: retired Areas of Concerns: AMS, weakness, UTI Referral Needs: SNF Education Needs: UTI, medical management IMM/LOPEZ given and signed (if applicable): IMM letter discussed with family at bedside. They verbalized understanding. Signed copy placed in chart. Copy to family Goal for discharge: SNF vs NH placement; family would like for pt to return to [facility] on discharge, whether back with SNF or [facility] care. Choice letter signed for [facility] and placed in chart. Copy to family at bedside. CM/SW left business card at the bedside with contact information. Name and number was also written on the patients whiteboard. Patient verbalized understanding of discussion. CM will follow-up with ongoing discharge and transition of care needs.
[2018-12-05] MEDS: MEROPENEM 1GM 100 ML IV SCH ×2 (15:02→21:59)
--- NOTE | 2018-12-05 16:52 | NUR ---
WOUND CARE CONSULTATION - INITIAL EVALUATION [facility] and [facility]TI. LABS: WBC13.52 HGB9.1 HCT29.8 USU142 HbA1c5.2 Alb1.6 Wound Care Consulted for evaluation of left gluteal and sacral ulcers. ER note PATIENT VISIT: Chiki Score 10 Moderate PUP on Door Patient in bed with Family Members at bedside. Actively participating in patient care. Vincentian Speaking Contracted BLE. Max Assist to Turn. Indwelling Miner Catheter. Bilateral Heel Protectors in place. Left Foot- Hallux - non blanchable purple area noted. Linear. Left Hip Wound- Non blanchable Reddened, Purple Area. Irregular Edges with denuded periwound. Draining Small sanguineous drainage onto Allevyn Foam Sacrum Dressing. Sacral Wound - Non blanchable Reddened, Purple Area. Irregular Edges with denuded periwound. Draining Small sanguineous drainage onto Allevyn Foam Sacrum Dressing. No other pressure injuries identified. BLE edema +2 pitting. IMPRESSION: 1. Sacral - Pressure Ulcer- DTI 2. Left Hip - Pressure Ulcer - DTI 3. Left Hallux ( great toe) -DTI RECOMMENDATION: 1. Sacral - Pressure Ulcer- DTI: - Wash area with mild soap and water. Pat Dry Thoroughly. - Apply [place] Cream and Cover with Allevyn Sacrum Foam Dressing daily and PRN Soiling. 2. Left Hip - Pressure Ulcer - DTI: - Wash area with mild soap and water. Pat Dry Thoroughly. - Apply Bennett Cream and Cover with Allevyn Sacrum Foam Dressing daily and PRN Soiling. 3. Left Hallux ( great toe) - DTI- Apply Bennett Cream Daily. 4. Continue Bilateral Heel Protectors 5. HOB - No greater than 30 degrees while in bed. 6. Turn and Reposition every 2 hours 7. Adjust alternating pressure air mattress according to weight as needed. Thank you for consulting with Wound Care. Addendum: 12/05/18 at 1704 by Octaviano Chery RN Amended: Links added.
--- NOTE | 2018-12-05 17:00 | NUR ---
DURAN EXCHANGED 16 GAUGE PER PROTOCOL.
--- NOTE | 2018-12-05 17:39 | NUR ---
Nutrition Intervention Note RD Recommendation(s) for Physician: - Continue cardiac diet as ordered; downgrade diet texture to mechanical soft due to chewing difficulty - Rec Ensure Enlive BID to promote protein calorie intake - Rec MVi w/ minerals, vitamin C to support wound healing - If PO continues to be poor, rec EN via PEG for bed bug exterminator nutrition The patient meets criteria for MODERATE protein-calorie malnutrition. Plan of Care: RD following, monitoring for tolerance and adequacy, ONS rec Nutrition reason for involvement: Pressure wound RD Assessment 83yo F, who was admitted from long-term for fever and UTI. Visited pt in the room. Unable to obtain hx from pt due to dementia. Per daughter, pt has had poor appetite and 20lbs weight loss in the last 2 weeks. Pt also has some missing teeth and prefer softer foods. No swallowing difficulty noted. Hx of chronic constipation reported. No other GI complains at this time. Will continue to monitor and follow. Principal Problems/Diagnoses: Fever, UTI PMH: Hypertension, hyperlipidemia, gastroesophageal reflux disease, IBS, skin cancer, Parkinson disease, dementia. GI: Abdomen flat, soft Skin: 1. Sacral - Pressure Ulcer- DTI 2. Left Hip - Pressure Ulcer - DTI 3. Left Hallux ( great toe) -DTI Labs: (12/05) reviewed Meds: abx, oscal D, protonix, colace Ht: 69in, per family Wt: 115lb (bedside scale) BMI: 17kg/m2 IBW: 105lb Malnutrition Evaluation (12/05/2018) The patient meets criteria for MODERATE protein-calorie malnutrition. Energy intake: <75% of estimated energy requirements for >7 days Weight loss: >5% in 1 month (Acute) Fat loss: Moderate - clavicle protrusion Muscle loss: Moderate - temporal depression Supporting Evidence: Fluid accumulation: unable to evaluate Functional Status: no changes Nutrition Prescription (Diet Order): cardiac diet Estimated Nutritional Needs: Calories: 1560 - 1820kcal (30-35kcal/kg/d) Weight: CBW Protein: 62 - 104g (1.5 - 2 g/kg/d) Weight: CBW Diet Adequacy: Not meeting calorie needs, Not meeting protein needs Diet Education Needs Assessment: Diet education indicated, but patient not appropriate for education at this time. Nutrition Care Level: high Nutrition Diagnosis: Inadequate oral intake related to acute illness as evidenced by poor appetite and poor PO x 2 weeks. Goal: Patient will meet 75-100% of estimated needs by follow up Progress: N/A Interventions: Mineral modified diet, commerical food, Multivitamin/mineral supplement therapy Monitoring/Evaluation: Total energy intake, Total protein intake, Prescription medication, Modified diet, Liquid supplement, Weight change Signed: Adamaris Smith MS, RD, LD
--- NOTE | 2018-12-05 19:00 | NUR ---
BEDSIDE REPORT GIVEN TO TRANSACTIONAL ATTORNEY RN
[2018-12-05] MEDS: ATORVASTATIN 40 MG TAB PO SCH (21:59)
[2018-12-06] VITALS (7 sets, daily range): BP systolic 82–120; BP diastolic 47–59
[2018-12-06 03:31] LABS: BASOPHILS % 0.1 % (0.0-1.0); EOSINOPHILS # (AUTO) 0.2 (0.0-0.4); EOSINOPHILS % 1.5 % (0.0-6.0); HEMATOCRIT 28.5 % (34.2-44.1); LYMPHOCYTES # (AUTO) 1.3 (1.0-3.2); LYMPHOCYTES % 10.9 % (18.0-39.1); MEAN CORPUSCULAR HEMOGLOBIN 31.6 pg (28-32); MEAN CORPUSCULAR HGB CONC 31.6 g/dL (31-35); MONOCYTES # (AUTO) 0.7 (0.2-0.8); MONOCYTES % 5.6 % (4.4-11.3); NEUTROPHILS # (AUTO) 9.6 (2.1-6.9); NEUTROPHILS % 81.1 % (38.7-80.0); PLATELET COUNT 219 x10e3/uL (140-360); RED BLOOD COUNT 2.85 x10e6/uL (3.6-5.1); RED CELL DISTRIBUTION WIDTH 13.2 % (11.7-14.4)
[2018-12-06 03:48] LABS: ANION GAP 10.6 mmol/L (8-16); BLOOD UREA NITROGEN 20 mg/dL (7-26); BUN/CREATININE RATIO 33 (6-25); CALCIUM 8.6 mg/dL (8.4-10.2); CARBON DIOXIDE 25 mmol/L (22-29); CHLORIDE 109 mmol/L (98-107); EST GLOMERULAR FILTRATION RATE > 60 ML/MIN (60-); GLUCOSE 108 mg/dL (74-118); POTASSIUM 3.6 mmol/L (3.5-5.1); SODIUM 141 mmol/L (136-145)
[2018-12-06] MEDS: MEROPENEM 1GM 100 ML IV SCH ×2 (06:04→14:19)
--- NOTE | 2018-12-06 07:00 | NUR ---
BEDSIDE REPORT TAKEN FROM COMMUNITY MENTAL HEALTH SOCIAL WORKER RN. PT DENIES NEEDS AT THIS TIME.
--- NOTE | 2018-12-06 07:00 | NUR ---
BEDSIDE REPORT TAKEN FROM DIVISION ROADMASTER RN. PT DENIES NEEDS AT THIS TIME.
[2018-12-06] MEDS: CARBIDOPA/LEVODOPA 25/250 TAB PO SCH ×2 (08:34→14:15)
[2018-12-06] MEDS: METOPROLOL TARTRATE 25 MG TAB PO SCH ×2 (08:34→16:28)
[2018-12-06] MEDS ORDERED: MERREM1 GM IV (08:34)
[2018-12-06] MEDS: PANTOPRAZOLE SOD 40 MG TABEC PO SCH (08:34)
[2018-12-06] MEDS: OYST-CAL-D 500MG TABLET PO SCH ×2 (08:34→16:33)
[2018-12-06] MEDS: DOCUSATE SODIUM LIQD 100 MG/10 ML UDC PO SCH ×2 (08:46→16:33)
[2018-12-06] MEDS ORDERED: ZINC OXIDE / BALSAM PERU 30 GM TUBE TOP SCH (09:00)
--- NOTE | 2018-12-06 09:00 | NUR ---
WOUND DRESSING CHANGE COMPLETED WITH ARLENE CREAM, COVERED WITH ALLEVYN SACRUM FOAM DRESSING
[2018-12-06] MEDS ORDERED: ONDANSETRON HCL 4 MG ORAL DISINTEGRATING TAB PO PRN (10:15)
--- NOTE | 2018-12-06 13:22 | NUR ---
FAXED CLINICALS TO [facility]
[2018-12-06] MEDS ORDERED: MEROPENEM 500MG/ NS 50ML 50 ML IV SCH (14:00)
--- NOTE | 2018-12-06 14:47 | NUR ---
PT GOING TO ROOM [address] [facility] TO [facility] [address], RTF COMPLETED AND GIVEN TO NURSE TO COMPLETE TRANSFER WHEN DISCHARGE ORDER IS RECEIVED
--- NOTE | 2018-12-06 16:15 | NUR ---
CALLED [facility] TO TRANSFER THE PT AND DISCHARGE REPORT GIVEN. NURSE (PRABHU) FROM [facility] INFORMED TO LEAVE THE IV AND DURAN IN PLACE.
--- NOTE | 2018-12-06 18:30 | NUR ---
PT TRANSFERRED TO [facility] VIA [facility] IN SAFE CONDITION. PT FAMILY WAS PRESENT. DENIED NEEDS AT THIS TIME.
--- NOTE | 2018-12-07 02:30 | Discharge Summary ---
ADMISSION DIAGNOSES: Urinary tract infection with sepsis present on admission, hypertension, hyperlipidemia, dementia, Parkinson's disease, gastroesophageal reflux disease, AMS, left buttock decubitus present on admission, hypernatremia, hypocalcemia, FIORELLA versus CKD, transaminitis. DISCHARGE DIAGNOSES: Urinary tract infection with sepsis present on admission, hypertension, hyperlipidemia, dementia, Parkinson disease, gastroesophageal reflux disease, AMS, left buttock decubitus present on admission, hypernatremia, hypocalcemia, FIORELLA versus CKD, transaminitis, ESBL of the urine. Rule out CVA. MEDICAL HISTORY: Dementia, Parkinson disease, hypertension, hyperlipidemia, GERD. SURGICAL HISTORY: Unable to obtain. FAMILY HISTORY: Unable to obtain. HOSPITAL COURSE: An 83-year-old female admitted from the [facility] to [place] because the patient became unresponsive while her family was helping her bath. The patient has dementia and is bedridden. History and HPI per ER record and shelter record. On admission, the patient started on cefepime. Bilateral carotid Doppler was negative for significant stenosis. EKG shows sinus tach at 114. Chest x-ray showed mild cardiomegaly and pulmonary hyperinflation. CT of the brain showed no acute abnormality. Neurology was consulted to rule out CVA. The patient was unable to do an MRI due to her bilateral lower extremity contractures. Blood cultures were negative. Urine culture came back positive for ESBL. The patient's antibiotics were changed to Merrem. Flu was negative. The patient will be discharged back to [facility]. Family understands discharge instructions and agrees to plan. Vital signs stable. The patient afebrile. Dictated by Deborah Cheney NP MD KIRILL Moody/MODL /[id number]
== END 2018-12-06 18:32 | DRG 698 ==
LOC: ER 16:37 → ERHOLD 21:44 → MED/SURG2 23:35
PROVIDERS: ADMIT Internal Medicine; ATTEND Internal Medicine
DX: T83.511A Infection and inflammatory reaction due to indwelling urethral catheter, initial encounter (principal); A41.9 Sepsis, unspecified organism; E87.0 Hyperosmolality and hypernatremia; G93.40 Encephalopathy, unspecified; E78.5 Hyperlipidemia, unspecified; G20 Parkinson's disease; F03.90 Unspecified dementia, unspecified severity, without behavioral disturbance, psychotic disturbance, mood disturbance, and anxiety; K21.9 Gastro-esophageal reflux disease without esophagitis; L89.322 Pressure ulcer of left buttock, stage 2
CPT/HCPCS: 36415; 70450; 71045; 80048; 80053; 80076; 81001; 82140; 82550; 82553; 82948; 83036; 83605; 83735; 83880; 84439; 84443; 84484; 85025; 85610; 85730; 87040; 87086; 87186; 87400; 93005; 93880; 97139; 99285; J3370; J7030; J7060

== ENCOUNTER 2018-12-26 14:11 | Inpatient (IN) | payer MEDICARE, OTHER ==
[~2018-12-26] VITALS: Ht 154.9 cm; Wt 54.9 kg
[~2018-12-26 14:11] MED LIST changes: +MERREM1 GM IV
[2018-12-26] MEDS ORDERED: ACETAMINOPHEN 1000 MG/100 ML IV STA (14:13)
[2018-12-26] MEDS ORDERED: SODIUM CHLORIDE 0.9% 1000ML 1,000 ML IV SCH ×2 (14:15→17:30)
[2018-12-26] MEDS ORDERED: MEROPENEM 1GM 100 ML IV SCH (14:30)
--- NOTE | 2018-12-26 14:57 | Diagnostic Imaging Report ---
ADDENDUM #1 Addendum: Left upper extremity midline PICC terminates over the lateral scapular border. Signed by: Dr. Harjit Perez M.D. on 12/26/2018 3:03 PM ORIGINAL REPORT Examination: Single AP view of the chest. COMPARISON: 12/02/2018 INDICATION: UTI DISCUSSION: The patient is substantially rotated to the right. The lungs remain well-inflated. No new consolidation or effusion. Stable enlargement of the cardiac silhouette without overt pulmonary edema. Tortuous thoracic aorta. No acute osseous abnormality. IMPRESSION: Borderline cardiomegaly without vascular decompensation. Signed by: Dr. Harjit Perez M.D. on 12/26/2018 2:54 PM
--- NOTE | 2018-12-26 15:02 | Diagnostic Imaging Report ---
Exam: Head CT without contrast History: Altered mental status Comparison studies: Head CT 12/02/2018. Technique: Axial images were obtained from the skull base to the vertex. Coronal and sagittal images reconstructed from the axial data. Dose modulation, iterative reconstruction, and/or weight based adjustment of the mA/kV was utilized to reduce the radiation dose to as low as reasonably achievable. Radiation dose: Total DLP: 921 mGy*cm. Estimated effective dose: DLP x 0.015 Intravenous contrast: None Findings: Scalp: No abnormalities. Bones: No fractures, blastic or lytic lesions. Brain sulci: Mildly prompt. Ventricles: Mild compensatory dilatation. No hydrocephalus. Extra-axial spaces: No masses, no fluid collection. Parenchyma: No mass, acute hemorrhage or acute cortical vascular insults. Scattered ill-defined and confluent hypodensities in the supratentorial white matter are nonspecific but most compatible with chronic small vessel ischemic changes. Sellar/suprasellar region: No abnormalities. Craniocervical junction: Patent foramen magnum. No Chiari one malformation. Incidental findings: Right lens replacement for previous cataract surgery. Atherosclerotic calcifications in the carotid siphons. Partially opacified left sphenoid sinus with nonspecific secretions. Mild chronic inflammatory changes at the right mastoid tip. IMPRESSION: 1. No acute intracranial abnormalities. 2. No changes from the prior head CT of 12/02/2018. 3. Mild general cerebral volume loss and moderate chronic microvascular ischemic changes. 4. Nonspecific inflammatory changes in the left sphenoid sinus. Signed by: Dr. Harjit Kirk M.D. on 12/26/2018 2:58 PM
[2018-12-26 15:33] LABS: BASOPHILS % 0.3 % (0.0-1.0); EOSINOPHILS # (AUTO) 0.3 (0.0-0.4); EOSINOPHILS % 2.5 % (0.0-6.0); LYMPHOCYTES # (AUTO) 1.8 (1.0-3.2); LYMPHOCYTES % 15.5 % (18.0-39.1); MEAN CORPUSCULAR HEMOGLOBIN 30.1 pg (28-32); MEAN CORPUSCULAR HGB CONC 30.7 g/dL (31-35); MEAN CORPUSCULAR VOLUME 98.2 fL (81-99); MONOCYTES # (AUTO) 1.2 (0.2-0.8); MONOCYTES % 10.5 % (4.4-11.3); NEUTROPHILS % 69.4 % (38.7-80.0); PLATELET COUNT 299 x10e3/uL (140-360); RED BLOOD COUNT 2.19 x10e6/uL (3.6-5.1); RED CELL DISTRIBUTION WIDTH 14.2 % (11.7-14.4)
[2018-12-26 15:38] LABS: INR 1.12; PROTHROMBIN TIME 14.9 seconds (11.9-14.5)
[2018-12-26 15:39] LABS: PARTIAL THROMBOPLASTIN TIME 34.3 seconds (23.8-35.5)
[2018-12-26 15:43] LABS: HEMATOCRIT 21.5 % (34.2-44.1); HEMOGLOBIN 6.6 g/dL (12.0-16.0); STREPTOCOCCUS GRP A ANTIGEN NEGATIVE (NEGATIVE)
[2018-12-26] MEDS ORDERED: VANCOMYCIN 1GM/NS 250 ML 250 ML IV ONE (15:44)
[2018-12-26 15:47] LABS: ALANINE AMINOTRANSFERASE 13 IU/L (0-55); ALBUMIN 1.5 g/dL (3.5-5.0); ALBUMIN/GLOBULIN RATIO 0.3 (0.8-2.0); ALKALINE PHOSPHATASE 116 IU/L (40-150); ANION GAP 14.4 mmol/L (8-16); BLOOD UREA NITROGEN 22 mg/dL (7-26); BUN/CREATININE RATIO 40 (6-25); CALCIUM 8.9 mg/dL (8.4-10.2); CARBON DIOXIDE 26 mmol/L (22-29); CHLORIDE 97 mmol/L (98-107); CREATINE KINASE 76 IU/L (29-168); CREATININE, SERUM 0.55 mg/dL (0.57-1.11); EST GLOMERULAR FILTRATION RATE > 60 ML/MIN (60-); GLUCOSE 111 mg/dL (74-118); MAGNESIUM 1.4 MG/DL (1.3-2.1); POTASSIUM 4.4 mmol/L (3.5-5.1); SODIUM 133 mmol/L (136-145)
[2018-12-26 15:49] LABS: BILIRUBIN,URINE NEGATIVE (NEGATIVE); CLARITY,URINE CLEAR (CLEAR); COLOR,URINE YELLOW (YELLOW); KETONES,URINE NEGATIVE (NEGATIVE); LEUKOCYTE ESTERASE ,URINE TRACE (NEGATIVE); NITRITE,URINE NEGATIVE (NEGATIVE); PROTEIN,URINE DIPSTICK 1+ (NEGATIVE); URINE UROBILINOGEN 0.2 mg/dL (0.2 - 1)
[2018-12-26 15:53] LABS: BACTERIA,URINE MODERATE /HPF; YEAST,URINE MODERATE
[2018-12-26 15:54] LABS: INFLUENZAE A&B ANTIGEN (RAPID) NEGATIVE (NEGATIVE)
[2018-12-26] MEDS ORDERED: SODIUM CHLORIDE 0.9% 250ML 250 ML IV ONE (16:00)
[2018-12-26 16:20] LABS: B-TYPE NATRIURETIC PEPTIDE2 155.1 pg/mL (0-100)
[2018-12-26] MEDS ORDERED: ONDANSETRON HCL INJ 2MG/ML 2ML 2 MG/ML VIAL IV PRN (17:30)
[2018-12-26] MEDS ORDERED: MORPHINE SULFATE 2 MG/ML SYR 1ML IV PRN (17:30)
[2018-12-26] MEDS ORDERED: MORPHINE SULFATE INJ 4 MG/ML INJ 1ML IV PRN (17:45)
--- NOTE | 2018-12-26 18:40 | NUR ---
PATIENT UNABLE TO SIGN CONSENT. COMPLETED TWO NURSE TELEPHONE CONSENT WITH PATIENT'S DAUGHTER ( KAYLIN ORR @ ) WITH THIS NURSE AND VANGIE ARROYO RN. CONSENT PLACED INTO CHART
[2018-12-26] MEDS ORDERED: SANTYL TOP (18:56)
[2018-12-26 22:01] VITALS: BP 112/54
[2018-12-26] MEDS: MEROPENEM 1GM 100 ML IV SCH (22:13)
[2018-12-26 22:15] VITALS: BP 112/54
[2018-12-26] MEDS ORDERED: SODIUM CHLORIDE 0.9% 250ML 250 ML ONE (23:04)
--- NOTE | 2018-12-26 23:30 | NUR ---
patient came from er looks lethargic, daughter ( Sasha ) on bed side. the daughter signed the blood transfusion consent since the consent that was obtained in ER was not completed. also noted wounds to left buttock that is covered with dressing and its intact, also one in sacrum area. nunez cath size 20 fr intact and came with her from ER. per report, patient came from residential, she has peg tube intact.
[2018-12-26 23:33] VITALS: BP 106/58
--- NOTE | 2018-12-26 23:45 | NUR ---
blood transfusion is started, on 75cc/hr. will continue to monitor.
[2018-12-27] VITALS (9 sets, daily range): BP systolic 100–137; BP diastolic 62–82
[2018-12-27] MEDS ORDERED: SODIUM CHLORIDE 0.9% 250ML 0 ML ONE (02:40)
--- NOTE | 2018-12-27 04:46 | NUR ---
patient is more alert, awake at this time, respond verbally with [place], denied any discomfort. second bag of PRBC is running. will continue to monitor.
--- NOTE | 2018-12-27 05:53 | NUR ---
called and spoke with dr Salinas regarding patient has not have any diet order. the MD order pureed diet. order carried out.
[2018-12-27] MEDS: MEROPENEM 1GM 100 ML IV SCH ×3 (06:20→20:56)
--- NOTE | 2018-12-27 07:02 | NUR ---
bedside reports given to upcoming shift nurse.
[2018-12-27] MEDS ORDERED: HYDRALAZINE HCL 20 MG/ML VIAL IV PRN (08:15)
[2018-12-27] MEDS ORDERED: MINERAL OIL 132 ML BTL PR PRN (08:15)
[2018-12-27] MEDS ORDERED: ACETAMINOPHEN/CODEINE 300MG - 30MG TAB PO PRN (08:15)
[2018-12-27] MEDS ORDERED: ACETAMINOPHEN 325 MG TAB PO PRN (08:15)
[2018-12-27] MEDS ORDERED: LACTULOSE SYRUP 20 GM/30 ML UDC PO PRN (08:15)
[2018-12-27 08:44] LABS: BASOPHILS % 0.3 % (0.0-1.0); EOSINOPHILS # (AUTO) 0.2 (0.0-0.4); EOSINOPHILS % 2.1 % (0.0-6.0); HEMATOCRIT 28.7 % (34.2-44.1); HEMOGLOBIN 9.4 g/dL (12.0-16.0); LYMPHOCYTES % 10.6 % (18.0-39.1); MEAN CORPUSCULAR HGB CONC 32.8 g/dL (31-35); MEAN CORPUSCULAR VOLUME 91.7 fL (81-99); MONOCYTES # (AUTO) 0.9 (0.2-0.8); MONOCYTES % 9.1 % (4.4-11.3); NEUTROPHILS # (AUTO) 7.5 (2.1-6.9); NEUTROPHILS % 76.6 % (38.7-80.0); PLATELET COUNT 314 x10e3/uL (140-360); RED BLOOD COUNT 3.13 x10e6/uL (3.6-5.1); RED CELL DISTRIBUTION WIDTH 15.4 % (11.7-14.4)
[2018-12-27] MEDS ORDERED: CARBIDOPA/LEVODOPA 25/250 TAB PO SCH (09:00)
[2018-12-27] MEDS ORDERED: METOPROLOL TARTRATE 25 MG TAB PO SCH (09:00)
[2018-12-27] MEDS ORDERED: DOCUSATE SODIUM LIQD 100 MG/10 ML UDC PO SCH (09:00)
[2018-12-27] MEDS ORDERED: SENNA-S TABLET PO SCH (09:00)
[2018-12-27] MEDS ORDERED: NON-FORMULARY MEDICATION (Polyethylene Glycol 3350 (Miralax) 17 GM) PO SCH (09:00)
[2018-12-27] MEDS: PANTOPRAZOLE 40 MG 10ML VIAL IV SCH ×2 (09:00→16:49)
[2018-12-27] MEDS ORDERED: AMLODIPINE BESYLATE 10 MG TAB PO SCH (09:00)
[2018-12-27 09:13] LABS: ALANINE AMINOTRANSFERASE 23 IU/L (0-55); ALBUMIN 1.4 g/dL (3.5-5.0); ALBUMIN/GLOBULIN RATIO 0.3 (0.8-2.0); ALKALINE PHOSPHATASE 95 IU/L (40-150); ANION GAP 8.7 mmol/L (8-16); BLOOD UREA NITROGEN 16 mg/dL (7-26); BUN/CREATININE RATIO 33 (6-25); CALCIUM 8.3 mg/dL (8.4-10.2); CARBON DIOXIDE 26 mmol/L (22-29); CHLORIDE 104 mmol/L (98-107); CREATININE, SERUM 0.48 mg/dL (0.57-1.11); EST GLOMERULAR FILTRATION RATE > 60 ML/MIN (60-); GLUCOSE 95 mg/dL (74-118); POTASSIUM 3.7 mmol/L (3.5-5.1); SODIUM 135 mmol/L (136-145)
[2018-12-27 09:14] LABS: MAGNESIUM 1.4 MG/DL (1.3-2.1)
[2018-12-27 09:37] LABS: FERRITIN 1050.8 ng/mL (4.63-204.00)
[2018-12-27] MEDS ORDERED: MORPHINE SULFATE INJ 4 MG/ML INJ 1ML IV PRN (09:45)
[2018-12-27] MEDS ORDERED: FUROSEMIDE INJ 10 MG/ML 4 ML VIAL IV NR (10:00)
[2018-12-27 10:22] LABS: FOLATE 11.9 ng/mL (7.0-15.4)
[2018-12-27] MEDS: FLUCONAZOLE 200 MG/100 ML 100 ML IV SCH (10:51)
[2018-12-27] MEDS ORDERED: SODIUM CHLORIDE 0.9% 250ML 250 ML ONE ×2 (10:56→20:56)
--- NOTE | 2018-12-27 11:18 | NUR ---
WOUND CARE CONSULTATION - INITIAL EVALUATION [facility] for fever & worsening wounds and increased confusion. DX: Left hip Stage IV, Sacrum Stage IV Pressure Ulcers- Present on admission. LABS: WBC9.83 HGB9.4 HCT28.7 GLU95 Alb1.4 Wound Care Consulted for evaluation of left hip, sacral wound, right ear. PATIENT VISIT: Chiki Score 10 Strict PUP Active Alternating Pressure Air Mattress in place - Specialty bed ordered and awaiting delivery. Patient in bed with daughter at bedside Filipino Speaking. Actively participating in patient care. Contracted BLE. Max Assist to Turn. Bilateral Heel Protectors in place. No Pressure Ulcers noted to BLE. Left Hip Wound- Full thickness ulcer with undermining at 12 o'clock 4.5 cm. Irregular Shaped/ Oval Edges with epithelialization to periwound. Draining Light to Moderate Serosanguineous drainage onto Allevyn Foam Sacrum Dressing. Sacral Wound - Full thickness ulceration, irregular shaped with Purple Areas, rubor and clustered rash to periwound. Irregular Edges with denuded periwound. Draining Small sanguineous drainage onto Allevyn Foam Sacrum Dressing. BLE edema +1 to +2 Pitting. Right Auricular Ulcer. Annular shaped - purple areas x2 consistent with pressure injury. Non blanchable. draining scant serosanguineous fluid. Well approximated. Rash noted to bilateral breast folds and groin and lower back areas proximal to sacal wound dressing line, rubor that is blanchable and in clusters at edge of rash consistent with yeast. Patient currently on IV Diflucan. IMPRESSION: 1. Sacral - Stage IV- Pressure Ulcer - Present On Admission 2. Left Hip - Stage IV - Pressure Ulcer- Present On Admission 3. Right Ear -DTI - Present On Admission 4. Bilateral Breast folds & Groin Areas & Back - Yeast Related Rash. RECOMMENDATION: 1. Sacral - Stage IV- Pressure Ulcer - POA - Cleanse wound with NS and 4x4 Gauze Daily - Apply Silvadene Soaked Gauze over open wound area Daily. - Nystatin Ointment over tissue surrounding wound ( Periwound) Daily. - Cover with Allevyn Foam Sacrum Dressing Daily. 2. Left Hip - Stage IV - Pressure Ulcer- POA: - - Cleanse wound with NS and 4x4 Gauze Daily - Apply Silvadene Soaked Gauze over open wound area Daily. - Nystatin Ointment over tissue surrounding wound ( Periwound) Daily. - Cover with Allevyn Foam Sacrum Dressing Daily. 3. Right Ear -DTI - Present On Admission - Cleanse area with NS and 4x4 gauze - Apply Venelex and Cover with Allevyn Foam Dressing Daily ( Cut to Fit) 4. Bilateral Breast folds & Groin Areas & Back - Yeast/ Moisture Related Rash. - Daily Baths with Nizoral Shampoo and dry thoroughly. - Apply Nystatin Ointment to rash areas BID and PRN Soiling. 5. Alternating Pressure YVONNE Air Mattress please. 6. Strict Turning and Repositioning every 2 hours using turning clock schedule 7. Continue bilateral Heel Protectors. 8. Head of Bed @ 30 degrees or less as tolerated. Thank you for consulting with Wound Care. Addendum: 12/27/18 at 1137 by Octaviano Chery RN Amended: Links added.
--- NOTE | 2018-12-27 11:20 | Consultation ---
DATE OF CONSULTATION: 12/27/2018 HISTORY OF PRESENT ILLNESS: The patient is an 83-year-old female, resident of [facility], who was admitted to the hospital with severe anemia, was found to have pressure ulcers on her sacrum as well as left hip, ischial area. She is unable to give any history. PAST MEDICAL HISTORY: From the chart significant for Parkinson disease, hypertension, hyperlipidemia, gastroesophageal reflux disease, and chronic constipation. She has had these known sacral and left hip ulcers for quite sometime and being treated with Santyl at the [facility]. PREVIOUS SURGERIES: Not available. MEDICATIONS: Listed in the chart. ALLERGIES: SHE HAS NO KNOWN ALLERGIES. FAMILY HISTORY: Could not be obtained. SOCIAL HISTORY: The patient is a resident of [facility]. REVIEW OF SYSTEMS: Cannot be obtained. PHYSICAL EXAMINATION: GENERAL: The patient is alert, does not answer questions. VITAL SIGNS: At this time are normal. HEENT: There is no scleral icterus. NECK: No masses. LUNGS: Equal. Breath sounds are clear bilaterally. CARDIAC: Regular rate and rhythm. ABDOMEN: Soft with no tenderness. EXTREMITIES: In the left hip area, there is a wound which is deep stage III, possibly stage IV and in the sacral area, there is also a sacral wound which is deep with some necrotic tissue. EXTREMITIES: Contracted. ASSESSMENT: An 83-year-old female admitted to the hospital with severe anemia, with sacral and left hip ischial ulcers. Once she is medically stable, she may benefit from debridement of these ulcers. There are no findings that warrant immediate surgical intervention at this time. Thank you for asking us to see Ms. Cruz. MD RICARDO Roper/MARITA /[id number]
--- NOTE | 2018-12-27 14:10 | NUR ---
Visit made by the Spiritual Care Department Pastoral Visitor, Ginger Quiles. Pt sleeping soundly and no family present. Pastoral Visitor left a card describing availability of core composer machine tender and instructions on how to contact a core composer machine tender. LYNN ALEXIS Sql Developer Spiritual Care Department O: [phone] Pager: [phone] ([phone] number calling from)
--- NOTE | 2018-12-27 14:10 | NUR ---
SPOKE WITH FAMILY PT IS FROM [facility], FAMILY WANTS TO KNOW WHO ELSE IS IN NETWORK, GAVE ALL OPTIONS IN AREA. THEY ARE GOING TO LOOK AND LET KNOW WHICH FACILITY THEY CHOOSE.
--- NOTE | 2018-12-27 15:02 | NUR ---
Nutrition Intervention Note RD Recommendation(s) for Physician: - Recommend TF of Osmolite 1.2 at 20 ml/hr, advance as tolerated to goal rate of 55 ml/hr (to provide 1584 kcal and 73 gm protein per day). - Water flushes and fluid management per MD. - Recommend Mac 1 packet per PEG BID to promote wound healing. - Recommend Vitamin C 500 mg BID and Zinc Sulfate 220 mg q day x 10 days to promote wound healing. - Diet per MD/DIRECTOR OF PHOTOGRAPHY pending MBSS results. - Pt meets criteria for moderate protein calorie malnutrition. Plan of Care: RD following, TF rec's, monitoring for tolerance and adequacy Nutrition reason for involvement: MD Consult- TF recommendations, Nutrition Risk Trigger- [facility] RD Assessment 12/27: 83 YOF admitted from [facility], seen today per MST score and MD consult for recommendations. Pt with hx of dementia, daughter at bedside provided hx. Previous admit hx in November 2018 reviewed. Pt has been residing at [facility] since D/C from [facility] with PEG placement 1 week ago due to inadequate po intake. Pt's daughter unable to provide TF information, states pt was not on a modified diet or NPO AUDOGRAPH OPERATOR. DIRECTOR OF PHOTOGRAPHY performed BSE during visit, pt with delayed swallow with thin liquids- recommended MBSS for po diet safety. TF and supplement rec's discussed with RN. Will monitor and continue to follow. Principal Problems/Diagnoses: anemia, fever, afib, pressure ulcers PMH: parkinson's, dementia, HTN, HLD, GERD, chronic constipation GI: WDL, + PEG Skin: L hip stage IV, sacral stage IV, R ear DTI Labs: 12/27: Na 135, K 3.7, BUN 16, Cr 0.48, Gluc 95 Meds: abx, senokot, colace, sinemet, lipitor, lactulose, zofran, protonix Ht: 61 in Wt: 121 lb BMI: 22.9 IBW: 105 lb Malnutrition Evaluation (12/27/18) The patient meets criteria for MODERATE protein-calorie malnutrition. Energy intake: <75% of estimated energy requirements for >1 month Weight loss: >5% in 1 month Fat loss: Moderate,clavicle protrusion Muscle loss: Mild, scientology depression Nutrition Prescription (Diet Order): Estimated Nutritional Needs: 4783-7083 calories/day (25-35 kcal/kg CBW) 55-83 g protein/day (1-1.5 g pro/kg CBW) Diet Adequacy: Not meeting calorie needs, Not meeting protein needs Diet Education Needs Assessment: Diet education not indicated, patient on temporary/transition diet. Nutrition Care Level: Moderate Nutrition Diagnosis: inadequate energy and protein intake related to mentation and inability to meet po needs as evidenced by PEG placement and requiring EN. Goal: Patient will meet 75-100% of estimated needs by follow up Progress: N/A Interventions: Composition, Rate, Route, Recommended Modifications, Collaboration with other providers Monitoring/Evaluation: Total energy intake, Total protein intake, Formula/Solution, Modified diet Signed: Beth Mancuso RD, LD, [facility]
[2018-12-27] MEDS ORDERED: ACETAMINOPHEN 325 MG TAB PEG PRN (15:15)
[2018-12-27] MEDS ORDERED: LACTULOSE SYRUP 20 GM/30 ML UDC PEG PRN (15:15)
[2018-12-27] MEDS: DOCUSATE SODIUM LIQD 100 MG/10 ML UDC PEG SCH (16:48)
[2018-12-27] MEDS: OYST-CAL-D 500MG TABLET PEG SCH (16:48)
[2018-12-27] MEDS: CARBIDOPA/LEVODOPA 25/250 TAB PEG SCH ×2 (16:49→20:56)
[2018-12-27] MEDS: ASCORBIC ACID 500 MG TAB PEG SCH (16:49)
[2018-12-27] MEDS: SENNA-S TABLET PEG SCH (16:49)
[2018-12-27] MEDS: ZINC SULFATE 220 MG CAP PEG SCH (16:53)
[2018-12-27] MEDS: ACETAMINOPHEN/CODEINE 300MG - 30MG TAB PEG PRN (16:54)
[2018-12-27] MEDS: METOPROLOL TARTRATE 25 MG TAB PEG SCH (17:45)
[2018-12-27] MEDS: NYSTATIN 100,000 UNITS/GM CRM 30GM TUBE TOP SCH (19:04)
--- NOTE | 2018-12-27 20:35 | NUR ---
transferred patient to rm 202 , daughter notified.
[2018-12-27] MEDS: ATORVASTATIN 40 MG TAB PEG SCH (20:54)
[2018-12-27] MEDS ORDERED: NON-FORMULARY MEDICATION ([Atorvastatin] 40 MG) PO SCH (21:00)
[2018-12-27] MEDS ORDERED: ATORVASTATIN 40 MG TAB PO SCH (21:00)
--- NOTE | 2018-12-27 21:00 | NUR ---
RECEIVED PATIENT TRANSFER FROM ROOM 199. TUBE FEEDING INFUSING AT 20 ML/HR. PATIENT TOLERATED WELL. NO RESIDUAL NOTED. EVENING MED GIVEN VIA PEG TUBE. CALL LIGHT WITHIN REACH. BED LOW/LOCKED. CONTINUE TO MONITOR CLOSELY
[2018-12-28] VITALS (8 sets, daily range): BP systolic 103–122; BP diastolic 51–67
[2018-12-28 05:50] LABS: BASOPHILS % 0.3 % (0.0-1.0); EOSINOPHILS # (AUTO) 0.2 (0.0-0.4); EOSINOPHILS % 1.8 % (0.0-6.0); HEMATOCRIT 31.9 % (34.2-44.1); HEMOGLOBIN 10.2 g/dL (12.0-16.0); LYMPHOCYTES # (AUTO) 1.7 (1.0-3.2); MEAN CORPUSCULAR HEMOGLOBIN 29.7 pg (28-32); MONOCYTES # (AUTO) 0.9 (0.2-0.8); MONOCYTES % 6.7 % (4.4-11.3); NEUTROPHILS # (AUTO) 9.9 (2.1-6.9); PLATELET COUNT 410 x10e3/uL (140-360); RED BLOOD COUNT 3.43 x10e6/uL (3.6-5.1); RED CELL DISTRIBUTION WIDTH 15.2 % (11.7-14.4)
[2018-12-28] MEDS: MEROPENEM 1GM 100 ML IV SCH ×3 (05:58→21:20)
--- NOTE | 2018-12-28 06:08 | NUR ---
no residual noted. patient tolerate feeding well. increase feeding to 30ml/hr. continue to monitor close
[2018-12-28 06:09] LABS: ANION GAP 11.8 mmol/L (8-16); BLOOD UREA NITROGEN 15 mg/dL (7-26); BUN/CREATININE RATIO 29 (6-25); CALCIUM 8.5 mg/dL (8.4-10.2); CARBON DIOXIDE 27 mmol/L (22-29); CHLORIDE 101 mmol/L (98-107); CREATININE, SERUM 0.52 mg/dL (0.57-1.11); EST GLOMERULAR FILTRATION RATE > 60 ML/MIN (60-); GLUCOSE 111 mg/dL (74-118); MAGNESIUM 1.9 MG/DL (1.3-2.1); POTASSIUM 3.8 mmol/L (3.5-5.1); SODIUM 136 mmol/L (136-145)
--- NOTE | 2018-12-28 07:05 | NUR ---
Received patient mid fowlers position, side rails upx3, call light within reach. Resting with eyes closed. Arousable to verbal stimuli. Respirations even and unlabored. Osmolite 1.2 at 30ml/hr with free water 20ml/hr via PEG. Will continue to monitor.
[2018-12-28] MEDS: AMLODIPINE BESYLATE 10 MG TAB PEG SCH (08:00)
[2018-12-28] MEDS: ZINC SULFATE 220 MG CAP PEG SCH ×2 (08:00→16:00)
[2018-12-28] MEDS: FLUCONAZOLE 200 MG/100 ML 100 ML IV SCH (08:00)
[2018-12-28] MEDS: CARBIDOPA/LEVODOPA 25/250 TAB PEG SCH ×3 (08:00→21:20)
[2018-12-28] MEDS: PANTOPRAZOLE 40 MG 10ML VIAL IV SCH ×2 (08:00→16:00)
[2018-12-28] MEDS: ASCORBIC ACID 500 MG TAB PEG SCH ×2 (08:00→16:00)
[2018-12-28] MEDS: METOPROLOL TARTRATE 25 MG TAB PEG SCH ×2 (08:00→16:00)
[2018-12-28] MEDS: DOCUSATE SODIUM LIQD 100 MG/10 ML UDC PEG SCH ×2 (08:00→16:00)
[2018-12-28] MEDS: LINACLOTIDE 145 MCG CAPSULE PO SCH (08:00)
[2018-12-28] MEDS: SENNA-S TABLET PEG SCH ×2 (08:00→16:00)
[2018-12-28] MEDS: OYST-CAL-D 500MG TABLET PEG SCH ×2 (08:00→16:00)
[2018-12-28] MEDS: POLYETHYLENE GLYCOL 3350 17 GM PACK PEG SCH (08:00)
[2018-12-28] MEDS: MULTIVITAMINS/MINERALS TAB PEG SCH (08:00)
[2018-12-28] MEDS ORDERED: POLYETHYLENE GLYCOL 3350 17 GM PACK PO SCH (09:00)
[2018-12-28] MEDS: NYSTATIN 100,000 UNITS/GM CRM 30GM TUBE TOP SCH ×2 (11:00→16:00)
[2018-12-28] MEDS: KETOCONAZOLE 2% SHAMPOO 4OZ BTL TOP SCH (11:00)
[2018-12-28] MEDS: BALSAM PERU/CASTOR OIL 60 GM OINT...G. TP SCH (11:00)
[2018-12-28] MEDS: SILVER SULFADIAZINE 50GM CREAM TOP SCH (11:00)
--- NOTE | 2018-12-28 12:00 | NUR ---
Deborah Cheney DRAWING PRESS OPERATOR aware of BNP 795.2
[2018-12-28] MEDS ORDERED: FUROSEMIDE INJ 10 MG/ML 4 ML VIAL IV SCH (12:15)
--- NOTE | 2018-12-28 12:49 | NUR ---
Placed on telemetry as ordered. tele #[id number] ST PAC [id number]
--- NOTE | 2018-12-28 15:04 | Diagnostic Imaging Report ---
PROCEDURE: X-RAY MODIFIED BARIUM SWALLOW COMPARISON: None. INDICATION: Suspected aspiration. Radiation Details: Fluoroscopy time: 1.7 minutes Cumulative dose: 1.25 mGy DISCUSSION: Fluoroscopic examination was performed in conjunction with speech pathology during swallowing a variety of thin and thick liquid consistencies. Provided images demonstrate laryngeal penetration without demonstrated aspiration. Mild to moderate vallecular and pharyngeal wall residue is noted. CONCLUSION: Modified barium swallow demonstrating laryngeal penetration without demonstrated aspiration. Please refer to the speech pathology report for further details. Signed by: Dr. Jose Juan Kingston MD on 12/28/2018 3:01 PM
[2018-12-28] MEDS: FUROSEMIDE INJ 10 MG/ML 2 ML VIAL IV SCH (16:00)
[2018-12-28] MEDS: FERROUS SULFATE 300 MG/5 ML LIQD GT SCH (16:00)
--- NOTE | 2018-12-28 16:46 | NUR ---
WOUND CARE - PUP SCREEN Chiki Score = 8 ACTIVE PUP = STRICT LOS = 1 Day Age = 83 Specialty Alternating Pressure Air Mattress in Place set to patient current weight HOB < or = 30 Degrees : Yes Patient Position= Back Mobility Concerns: Strict Turning & Repositioning RECOMMENDATIONS:( Continue Strict PUP Protocol ) 1. HEEL PROTECTORS 2. TURN AND REPOSITION q2H using Turning Clock Schedule. Addendum: 12/28/18 at 1651 by Octaviano Chery RN Amended: Links added.
[2018-12-28] MEDS ORDERED: ASCORBIC ACID 500 MG TAB PO SCH (17:00)
--- NOTE | 2018-12-28 18:00 | NUR ---
TF increased to 40ml/hr as ordered. NO residual noted. PEG tube dressing changed
--- NOTE | 2018-12-28 19:00 | NUR ---
Report given to oncoming nurse of patient's status. No s/s of acute distress noted.
[2018-12-28] MEDS: ATORVASTATIN 40 MG TAB PEG SCH (21:20)
[2018-12-29] VITALS (7 sets, daily range): BP systolic 96–170; BP diastolic 51–98
[2018-12-29 05:16] LABS: BASOPHILS % 0.2 % (0.0-1.0); EOSINOPHILS # (AUTO) 0.2 (0.0-0.4); EOSINOPHILS % 1.2 % (0.0-6.0); HEMATOCRIT 29.8 % (34.2-44.1); HEMOGLOBIN 9.5 g/dL (12.0-16.0); LYMPHOCYTES # (AUTO) 1.9 (1.0-3.2); LYMPHOCYTES % 12.9 % (18.0-39.1); MEAN CORPUSCULAR HEMOGLOBIN 29.5 pg (28-32); MEAN CORPUSCULAR HGB CONC 31.9 g/dL (31-35); MEAN CORPUSCULAR VOLUME 92.5 fL (81-99); MONOCYTES # (AUTO) 0.9 (0.2-0.8); MONOCYTES % 5.9 % (4.4-11.3); NEUTROPHILS # (AUTO) 11.3 (2.1-6.9); NEUTROPHILS % 78.8 % (38.7-80.0); PLATELET COUNT 385 x10e3/uL (140-360); RED BLOOD COUNT 3.22 x10e6/uL (3.6-5.1); RED CELL DISTRIBUTION WIDTH 14.8 % (11.7-14.4)
--- NOTE | 2018-12-29 05:38 | NUR ---
changed midline dressing. patient tolerated well.
[2018-12-29] MEDS: MEROPENEM 1GM 100 ML IV SCH (05:39)
[2018-12-29 05:41] LABS: ANION GAP 9.8 mmol/L (8-16); BLOOD UREA NITROGEN 13 mg/dL (7-26); BUN/CREATININE RATIO 25 (6-25); CALCIUM 8.3 mg/dL (8.4-10.2); CARBON DIOXIDE 31 mmol/L (22-29); CHLORIDE 98 mmol/L (98-107); CREATININE, SERUM 0.51 mg/dL (0.57-1.11); EST GLOMERULAR FILTRATION RATE > 60 ML/MIN (60-); GLUCOSE 105 mg/dL (74-118); MAGNESIUM 1.5 MG/DL (1.3-2.1); POTASSIUM 3.8 mmol/L (3.5-5.1); SODIUM 135 mmol/L (136-145)
--- NOTE | 2018-12-29 07:00 | NUR ---
BEDSIDE SHIFT CHANGE REPORT FROM NIGHT RN. PT DENIES NEEDS AT THIS TIME.
[2018-12-29] MEDS: LINACLOTIDE 145 MCG CAPSULE PO SCH (07:30)
[2018-12-29] MEDS: FUROSEMIDE INJ 10 MG/ML 2 ML VIAL IV SCH ×2 (08:43→17:28)
[2018-12-29] MEDS: PANTOPRAZOLE 40 MG 10ML VIAL IV SCH ×2 (08:52→17:28)
[2018-12-29] MEDS: FLUCONAZOLE 200 MG/100 ML 100 ML IV SCH (08:59)
[2018-12-29] MEDS: DOCUSATE SODIUM LIQD 100 MG/10 ML UDC PEG SCH ×2 (09:00→17:28)
[2018-12-29] MEDS: MULTIVITAMINS/MINERALS TAB PEG SCH (09:00)
[2018-12-29] MEDS: SILVER SULFADIAZINE 50GM CREAM TOP SCH (09:00)
[2018-12-29] MEDS: KETOCONAZOLE 2% SHAMPOO 4OZ BTL TOP SCH (09:00)
[2018-12-29] MEDS: SENNA-S TABLET PEG SCH ×2 (09:00→17:29)
[2018-12-29] MEDS: NYSTATIN 100,000 UNITS/GM CRM 30GM TUBE TOP SCH ×2 (09:00→17:00)
[2018-12-29] MEDS: ZINC SULFATE 220 MG CAP PEG SCH ×2 (09:00→17:32)
[2018-12-29] MEDS: AMLODIPINE BESYLATE 10 MG TAB PEG SCH (09:00)
[2018-12-29] MEDS: BALSAM PERU/CASTOR OIL 60 GM OINT...G. TP SCH (09:00)
[2018-12-29] MEDS: ASCORBIC ACID 500 MG TAB PEG SCH ×2 (09:00→17:29)
[2018-12-29] MEDS: FERROUS SULFATE 300 MG/5 ML LIQD GT SCH ×2 (09:00→15:30)
[2018-12-29] MEDS: POLYETHYLENE GLYCOL 3350 17 GM PACK PEG SCH ×2 (09:00→17:32)
[2018-12-29] MEDS: CARBIDOPA/LEVODOPA 25/250 TAB PEG SCH ×3 (09:00→20:46)
[2018-12-29] MEDS: OYST-CAL-D 500MG TABLET PEG SCH ×2 (09:00→17:29)
[2018-12-29] MEDS: METOPROLOL TARTRATE 25 MG TAB PEG SCH ×2 (09:00→17:28)
[2018-12-29] MEDS ORDERED: SODIUM CHLORIDE 0.9% 250ML 250 ML ONE (09:07)
--- NOTE | 2018-12-29 13:00 | NUR ---
PT OFF THE FLOOR TO OR.
--- NOTE | 2018-12-29 13:08 | NUR ---
SPOKE WITH PIPER LOYA WHOM STATES THEY ARE GOING TO RETURN TO [facility], WILL FAX CLINICALS TO THEM TO START PROCESS.
--- NOTE | 2018-12-29 13:09 | NUR ---
SOCIAL WORK INITIAL ASSESSMENT Lpn R[facility] Hospice to bedside to discuss plan of care with patient/family. CM/SW role and care transitions discussed. Anticipated discharge plan discussed along with duration of care. CM/SW discussed patients right to make decisions in care. CM/SW work hours given. Patient lives: AT [facility] Admit/Transfer: VIA ED POA/Emergency contact: PIPER LOYA [phone] Current/Previous Home Health: IN A FACILITY PCP/Follow-up Care: FACILITY Current/Previous DME:[facility] Other Services: NONE Employment Status: RETIRED Areas of Concerns: NA Referral Needs: BACK TO FACILITY Education Needs: NA IMM/LOPEZ given and signed (if applicable): UPON ADMISSION Goal for discharge: RETURN TO FACILITY. CM/SW left business card at the bedside with contact information. Name and number was also written on the patients whiteboard. Patient verbalized understanding of discussion. CM will follow-up with ongoing discharge and transition of care needs.
--- NOTE | 2018-12-29 14:09 | NUR ---
FAXED CLINICALS TO [facility] [phone].
--- NOTE | 2018-12-29 15:15 | NUR ---
PT BACK TO THE FLOOR FROM PACU. VITALS WNL. PT RESTING. FAMILY AT BEDSIDE.
--- NOTE | 2018-12-29 15:42 | NUR ---
RECEIVED CALL FROM PHILLIP AT [facility], PT WILL GO TO RM [address] UNDER DR HUMA FERNANDO.
--- NOTE | 2018-12-29 16:03 | NUR ---
COMPLETED RTF AND PUT AT NURSES STATION.
[2018-12-29] MEDS: LACTULOSE SYRUP 20 GM/30 ML UDC PO SCH ×2 (17:00→17:28)
--- NOTE | 2018-12-29 18:30 | NUR ---
PT OFF THE FLOOR TO RADIOLOGY.
[2018-12-29] MEDS ORDERED: ONDANSETRON HCL INJ 2MG/ML 2ML 2 MG/ML VIAL ONE (19:15)
[2018-12-29] MEDS ORDERED: PROPOFOL IV EMULSION 10 MG/ML 20 ML VIAL ONE (19:15)
[2018-12-29] MEDS ORDERED: CEFTRIAXONE SOD 1 GM VIAL ONE (19:15)
[2018-12-29] MEDS ORDERED: LIDOCAINE HCL 2% LOCAL INJ 5 ML SDV VIAL INJ ONE (19:15)
[2018-12-29] MEDS ORDERED: SEVOFLURANE INHAL SOLN 250 ML PEN BTL ONE (19:15)
[2018-12-29] MEDS ORDERED: FENTANYL CITRATE/PF 100MCG/2 ML INJ ONE (19:25)
--- NOTE | 2018-12-29 19:42 | Diagnostic Imaging Report ---
SACRUM - 3 Images HISTORY: Sacral wound, rule out osteo- COMPARISON: None available. FINDINGS: Bones: Osseous structures are markedly limited by opaque bowel contents and bowel gas. Diffusely decreased mineralization of the osseous structures further limits bone detail. No definitive sacral or coccygeal erosions given the limitations of this exam. Soft tissues: Dorsal soft tissue defect compatible with provided history of sacral wound. IMPRESSION: No specific radiographic evidence of osteomyelitis. A MRI of the pelvis with and without contrast would provide a more sensitive evaluation. Signed by: Dr. Tito Gray D.O., M.M.M. on 12/29/2018 7:38 PM
[2018-12-29] MEDS: ATORVASTATIN 40 MG TAB PEG SCH (20:46)
--- NOTE | 2018-12-29 21:20 | Operative Report ---
DATE OF PROCEDURE: 12/29/2018 SURGEON: Harjit Feliz MD PREOPERATIVE DIAGNOSIS: Necrotic ulcer on the sacrum and necrotic ulcer in left ischial area. POSTOPERATIVE DIAGNOSIS: Necrotic ulcer on the sacrum and necrotic ulcer in left ischial area. PROCEDURE: 1. Excisional debridement of sacral ulcer, skin, subcutaneous tissue, and muscle, 100 sq cm. 2. Excisional debridement of left ischial ulcer, skin, subcutaneous tissue and muscle, 100 sq cm. PHOTO TECHNICIAN: None. ANESTHESIA: General. INDICATIONS AND FINDINGS: The patient is an 83-year-old female admitted to the hospital with sepsis, found to have necrotic ulcers in the sacrum as well as left ischial area surgery. There was necrotic ulcer in the sacral area involving skin, subcutaneous tissue, and muscle, which was considerable undermining, extended down to the bone, but the bone appeared viable as was periosteum. Area debrided was 100 sq cm. In the left ischial area, there was also some necrotic skin, subcutaneous tissue and muscle with considerable undermining. This was also debrided. Total area is also about 100 sq cm. TECHNIQUE: After adequate general anesthesia, patient right side down position, the left ischium and sacral areas were prepped and draped in a sterile fashion with Betadine solution. Started on the sacrum, there was obvious necrotic tissue within sacral ulcer. This was excised appeared healthy and viable. The area of debridement was about 10 x 10 cm involving the skin, subcutaneous tissue, and muscle. Hemostasis was achieved with electrocautery and the wound was irrigated with saline. In the left ischial area also, the area of debridement was about 10 x 10 cm involving skin, subcutaneous tissue, and muscle with considerable undermining of the skin. All the undermined skin was excised as well as some necrotic muscle and subcutaneous tissue, this was all excised back to healthy bleeding tissue. Hemostasis was achieved with electrocautery. The wound was then dressed open and each wound was saline moistened gauzed and sterile dressing applied. The patient tolerated the procedure well. Estimated blood losswas 50 mL. There were no complications. All counts were correct. The patient was taken to the recovery room in satisfactory condition. MD RICARDO Roper/MACIELL /[id number] cc: Titus Salinas MD
[2018-12-30] VITALS (7 sets, daily range): BP systolic 89–122; BP diastolic 52–69
--- NOTE | 2018-12-30 04:34 | NUR ---
patient pulled midline, dressing placed. Left FA 20g started. patient tolerated well.
[2018-12-30 05:21] LABS: BASOPHILS % 0.2 % (0.0-1.0); EOSINOPHILS # (AUTO) 0.1 (0.0-0.4); HEMATOCRIT 29.1 % (34.2-44.1); HEMOGLOBIN 9.2 g/dL (12.0-16.0); LYMPHOCYTES # (AUTO) 1.3 (1.0-3.2); LYMPHOCYTES % 9.6 % (18.0-39.1); MEAN CORPUSCULAR HEMOGLOBIN 29.7 pg (28-32); MEAN CORPUSCULAR HGB CONC 31.6 g/dL (31-35); MEAN CORPUSCULAR VOLUME 93.9 fL (81-99); MONOCYTES # (AUTO) 0.8 (0.2-0.8); MONOCYTES % 5.8 % (4.4-11.3); NEUTROPHILS # (AUTO) 11.3 (2.1-6.9); NEUTROPHILS % 82.4 % (38.7-80.0); PLATELET COUNT 384 x10e3/uL (140-360); RED CELL DISTRIBUTION WIDTH 14.6 % (11.7-14.4)
[2018-12-30 05:40] LABS: ANION GAP 11.8 mmol/L (8-16); BLOOD UREA NITROGEN 14 mg/dL (7-26); BUN/CREATININE RATIO 25 (6-25); CALCIUM 8.2 mg/dL (8.4-10.2); CARBON DIOXIDE 30 mmol/L (22-29); CHLORIDE 98 mmol/L (98-107); CREATININE, SERUM 0.57 mg/dL (0.57-1.11); EST GLOMERULAR FILTRATION RATE > 60 ML/MIN (60-); GLUCOSE 154 mg/dL (74-118); MAGNESIUM 1.7 MG/DL (1.3-2.1); POTASSIUM 3.8 mmol/L (3.5-5.1); SODIUM 136 mmol/L (136-145)
--- NOTE | 2018-12-30 07:00 | NUR ---
BEDSIDE SHIFT CHANGE REPORT FROM NIGHT RN. PT DENIES NEEDS AT THIS TIME.
--- NOTE | 2018-12-30 08:40 | NUR ---
Spoke to AKHIL Cabrera regarding discharge plan. Anticipate DC on Wednesday or Wednesday. ALIN was informed.
[2018-12-30] MEDS: DOCUSATE SODIUM LIQD 100 MG/10 ML UDC PEG SCH ×2 (09:00→18:07)
[2018-12-30] MEDS: OYST-CAL-D 500MG TABLET PEG SCH ×2 (09:00→18:08)
[2018-12-30] MEDS: ASCORBIC ACID 500 MG TAB PEG SCH ×2 (09:00→18:08)
[2018-12-30] MEDS: FERROUS SULFATE 300 MG/5 ML LIQD GT SCH ×2 (09:00→18:05)
[2018-12-30] MEDS: LACTULOSE SYRUP 20 GM/30 ML UDC PO SCH ×2 (09:00→18:09)
[2018-12-30] MEDS: POLYETHYLENE GLYCOL 3350 17 GM PACK PEG SCH ×2 (09:00→18:07)
[2018-12-30] MEDS: LINACLOTIDE 145 MCG CAPSULE PO SCH (09:00)
[2018-12-30] MEDS: FUROSEMIDE INJ 10 MG/ML 2 ML VIAL IV SCH ×2 (09:00→18:18)
[2018-12-30] MEDS: CARBIDOPA/LEVODOPA 25/250 TAB PEG SCH ×3 (09:00→21:40)
[2018-12-30] MEDS: SENNA-S TABLET PEG SCH ×2 (09:00→18:08)
[2018-12-30] MEDS: BALSAM PERU/CASTOR OIL 60 GM OINT...G. TP SCH (09:00)
[2018-12-30] MEDS: SILVER SULFADIAZINE 50GM CREAM TOP SCH (09:00)
[2018-12-30] MEDS: NYSTATIN 100,000 UNITS/GM CRM 30GM TUBE TOP SCH ×2 (09:00→18:11)
[2018-12-30] MEDS: PANTOPRAZOLE 40 MG 10ML VIAL IV SCH ×2 (09:00→18:07)
[2018-12-30] MEDS: KETOCONAZOLE 2% SHAMPOO 4OZ BTL TOP SCH (09:00)
[2018-12-30] MEDS: FLUCONAZOLE 200 MG/100 ML 100 ML IV SCH (09:00)
[2018-12-30] MEDS: METOPROLOL TARTRATE 25 MG TAB PEG SCH ×2 (09:00→18:10)
[2018-12-30] MEDS: MULTIVITAMINS/MINERALS TAB PEG SCH (09:00)
[2018-12-30] MEDS: ZINC SULFATE 220 MG CAP PEG SCH ×2 (09:00→18:09)
--- NOTE | 2018-12-30 15:50 | NUR ---
Nutrition Intervention Note RD Recommendation(s) for Physician: - Continue current TF of Jevity 1.2 at 20 ml/hr, advance as tolerated to goal rate of 55 ml/hr (to provide 1584 kcal and 73 gm protein per day). - Water flushes and fluid management per MD. - Recommend Mac 1 packet per PEG BID to promote wound healing. - Continue Vitamin C 500 mg BID and Zinc Sulfate 220 mg q day x 10 days to promote wound healing. -Check daily labs, weight, and gastric tolerance. - Pt meets criteria for moderate protein calorie malnutrition. Plan of Care: RD following, TF rec's, monitoring for tolerance and adequacy Nutrition reason for involvement:follow up RD Assessment 12/30: Follow up: Pt was seen resting with patient at bedside. Pt was ordered Jevity 1.2 and according to family members pt is tolerating TF well so far. Observed TF off during visit, spoke with nurse, nurse reported the pt appeared very full this morning, could not state the last gastric residual that was taken. If residuals are higher than 250 ml after a second check, consider promotility agent, greater than 500 ml they must be put on hold and it is recommended to consult RD. Nurse said pt is consuming almost 600 ml of water with medications suggesting pt is consuming over 1665 ml of fluid without counting additional TF flushes which may have contributed to pts feeling of fullness. Nurse reported pt is at 50 ml/hr right now. Pt was seen by speech who recorded pt has mild-mod clarisse-pharyngeal dysphagia heightened by severe dementia. Pt gets primary nutrition/hydration via peg tube. Pt is now NPO and receiving only nutrition via tube. Will continue to monitor. 12/27: 83 YOF admitted from [facility], seen today per MST score and MD consult for recommendations. Pt with hx of dementia, daughter at bedside provided hx. Previous admit hx in November 2018 reviewed. Pt has been residing at [facility] since D/C from [facility] with PEG placement 1 week ago due to inadequate po intake. 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 LIGHT BULB TESTER performed BSE during visit, pt with delayed swallow with thin liquids- recommended MBSS for po diet safety. TF and supplement rec's discussed with RN. Will monitor and continue to follow. Principal Problems/Diagnoses: anemia, fever, afib, pressure ulcers PMH: parkinson's, dementia, HTN, HLD, GERD, chronic constipation GI: Abd: soft non tender, flatus-passing Skin: L hip stage IV, sacral stage IV, R ear DTI Labs: 12/30: Na: 136, Co2: 30, Gluc 154, Ca 8.2, B-Natriuretic peptide: 287 12/27: Na 135, K 3.7, BUN 16, Cr 0.48, Gluc 95 Meds: abx, senokot, colace, sinemet, lipitor, lactulose, zofran, protonix, lasix, ferrous sulfate, M/V, calcium carbonate, zinc sulfate, Vit C, senokot, Ht: 61 in Wt: 121 lb BMI: 22.9 IBW: 105 lb Malnutrition Evaluation (12/27/18) The patient meets criteria for MODERATE protein-calorie malnutrition. Energy intake: <75% of estimated energy requirements for >1 month Weight loss: >5% in 1 month Fat loss: Moderate,clavicle protrusion Muscle loss: Mild, yazidism depression Nutrition Prescription (Diet Order): Estimated Nutritional Needs: 3588-3318 calories/day (25-35 kcal/kg CBW) 55-83 g protein/day (1-1.5 g pro/kg CBW) Diet Adequacy: meeting calorie needs, meeting protein needs Diet Education Needs Assessment: Diet education not indicated, patient on temporary/transition diet. Nutrition Care Level: Moderate Nutrition Diagnosis: inadequate energy and protein intake related to mentation and inability to meet po needs as evidenced by PEG placement and requiring EN. Goal: Patient will meet 75-100% of estimated needs by follow up Progress: N/A Interventions: Composition, Rate, Route, Recommended Modifications, Collaboration with other providers Monitoring/Evaluation: Total energy intake, Total protein intake, Formula/Solution, Modified diet Signed: Ailyn Bradshaw RD, LD
--- NOTE | 2018-12-30 16:58 | NUR ---
WOUND CARE CONSULTATION - FOLLOW UP with VAC PLACEMENT Patient admitted from custodial to ER for fever & worsening wounds and increased confusion. DX: Left hip Stage IV, Sacrum Stage IV Pressure Ulcers- Present on admission. Wound Care Consulted for evaluation of left hip, sacral wound with VAC placement PATIENT VISIT: Chiki Score 10 Strict PUP Active Alternating Pressure Air Mattress in place Patient in bed with daughter at bedside Bhutanese Speaking. Contracted BLE. Max Assist to Turn. Bilateral Heel Protectors in place. No Pressure Ulcers noted to BLE. Left Hip Wound- Full thickness ulcer with undermining at 12 o'clock 4.5 cm. Irregular Shaped/ Oval Edges with epithelialization to periwound. Draining Light to Moderate Serosanguineous drainage. Sacral Wound - Full thickness ulceration,Oval shaped , Periwound Improved. Edges Sharp with DTI to periwound. Draining Moderate serosanguineous drainage. BLE edema +1 to +2 Pitting. S/P Surgical Debridement by Dr. Feliz on 12/29/2018 to Sacrum and Left Hip Wounds Spoke with Dr. Feliz earlier and discussed placement of NPWT -120mmHG Continous to both Sacral and Left Hip ulcers. Wounds achieved hemostasis and okay to place vac today. Wound Vac placed today. Tolerated procedure well. [employer] to base of sacral wound then black foam. IMPRESSION: 1. Sacral - Stage IV- Pressure Ulcer - Present On Admission 2. Left Hip - Stage IV - Pressure Ulcer- Present On Admission 3. Right Ear -DTI - Present On Admission 4. Bilateral Breast folds & Groin Areas & Back - Yeast Related Rash. RECOMMENDATION: 1. Sacral - Stage IV- Pressure Ulcer - POA - Cleanse wound with NS and 4x4 Gauze then Apply NPWT -120mmHg Continuous. Change TIW. 2. Left Hip - Stage IV - Pressure Ulcer- POA: - - Cleanse wound with NS and 4x4 Gauze then Apply NPWT -120mmHg Continuous. Change TIW. 3. Right Ear -DTI - Present On Admission - Cleanse area with NS and 4x4 gauze - Apply Venelex and Cover with Allevyn Foam Dressing Daily ( Cut to Fit) 4. Bilateral Breast folds & Groin Areas & Back - Yeast/ Moisture Related Rash. - Daily Baths with Nizoral Shampoo and dry thoroughly. - Apply Nystatin Ointment to rash areas BID and PRN Soiling. 5. Alternating Pressure YVONNE Air Mattress please. 6. Strict Turning and Repositioning every 2 hours using turning clock schedule 7. Continue bilateral Heel Protectors. 8. Head of Bed @ 30 degrees or less as tolerated. Thank you for consulting with Wound Care. Addendum: 12/30/18 at 1710 by Octaviano Chery RN Amended: Links added.
[2018-12-30] MEDS ORDERED: VANCOMYCIN HCL 1 GM in SODIUM CHLORIDE 0.9% 250ML 250 ML IV SCH (17:30)
[2018-12-30] MEDS: VANCOMYCIN 1GM/NS 250 ML 250 ML IV SCH (18:20)
[2018-12-30] MEDS ORDERED: FUROSEMIDE INJ 10 MG/ML 2 ML VIAL IV SCH (18:30)
[2018-12-30] MEDS: ATORVASTATIN 40 MG TAB PEG SCH (21:40)
[2018-12-30] MEDS: MEROPENEM 500MG/ NS 50ML BAG IV SCH (21:40)
[2018-12-30] MEDS ORDERED: MEROPENEM 500MG 500 MG in SODIUM CHLORIDE 0.9% 50ML 50 ML IV SCH (22:00)
[2018-12-31] VITALS (9 sets, daily range): BP systolic 77–110; BP diastolic 43–63
[2018-12-31 04:40] LABS: BASOPHILS # (AUTO) 0.1 (0.0-0.1); BASOPHILS % 0.3 % (0.0-1.0); EOSINOPHILS % 0.1 % (0.0-6.0); HEMATOCRIT 28.6 % (34.2-44.1); HEMOGLOBIN 9.1 g/dL (12.0-16.0); LYMPHOCYTES # (AUTO) 1.7 (1.0-3.2); LYMPHOCYTES % 7.2 % (18.0-39.1); MEAN CORPUSCULAR HEMOGLOBIN 29.5 pg (28-32); MEAN CORPUSCULAR HGB CONC 31.8 g/dL (31-35); MEAN CORPUSCULAR VOLUME 92.9 fL (81-99); MONOCYTES # (AUTO) 1.2 (0.2-0.8); MONOCYTES % 5.2 % (4.4-11.3); NEUTROPHILS # (AUTO) 20.5 (2.1-6.9); NEUTROPHILS % 86.3 % (38.7-80.0); PLATELET COUNT 373 x10e3/uL (140-360); RED BLOOD COUNT 3.08 x10e6/uL (3.6-5.1); RED CELL DISTRIBUTION WIDTH 14.7 % (11.7-14.4)
[2018-12-31] MEDS: MEROPENEM 500MG/ NS 50ML BAG IV SCH ×3 (05:49→22:00)
[2018-12-31 06:50] LABS: ANION GAP 13.6 mmol/L (8-16); BLOOD UREA NITROGEN 14 mg/dL (7-26); BUN/CREATININE RATIO 23 (6-25); CALCIUM 7.9 mg/dL (8.4-10.2); CARBON DIOXIDE 28 mmol/L (22-29); CHLORIDE 95 mmol/L (98-107); EST GLOMERULAR FILTRATION RATE > 60 ML/MIN (60-); GLUCOSE 161 mg/dL (74-118); MAGNESIUM 1.6 MG/DL (1.3-2.1); POTASSIUM 3.6 mmol/L (3.5-5.1); SODIUM 133 mmol/L (136-145)
[2018-12-31] MEDS: METOPROLOL TARTRATE 25 MG TAB PEG SCH ×2 (07:45→17:05)
[2018-12-31] MEDS ORDERED: POTASSIUM CHLORIDE 20MEQ/15ML UDC PEG SCH (09:00)
[2018-12-31] MEDS: NYSTATIN 100,000 UNITS/GM CRM 30GM TUBE TOP SCH ×2 (09:00→17:00)
[2018-12-31] MEDS: SILVER SULFADIAZINE 50GM CREAM TOP SCH (09:00)
[2018-12-31] MEDS ORDERED: FUROSEMIDE INJ 10 MG/ML 4 ML VIAL IV SCH (09:00)
[2018-12-31] MEDS: MULTIVITAMINS/MINERALS TAB PEG SCH (09:42)
[2018-12-31] MEDS: FERROUS SULFATE 300 MG/5 ML LIQD GT SCH ×2 (09:42→17:04)
[2018-12-31] MEDS: CARBIDOPA/LEVODOPA 25/250 TAB PEG SCH ×3 (09:42→21:00)
[2018-12-31] MEDS: DOCUSATE SODIUM LIQD 100 MG/10 ML UDC PEG SCH ×2 (09:42→17:04)
[2018-12-31] MEDS: LINACLOTIDE 145 MCG CAPSULE PO SCH (09:42)
[2018-12-31] MEDS: FLUCONAZOLE 200 MG/100 ML 100 ML IV SCH (09:42)
[2018-12-31] MEDS: OYST-CAL-D 500MG TABLET PEG SCH ×2 (09:42→17:05)
[2018-12-31] MEDS: PANTOPRAZOLE 40 MG 10ML VIAL IV SCH ×2 (09:42→17:04)
[2018-12-31] MEDS: POLYETHYLENE GLYCOL 3350 17 GM PACK PEG SCH ×2 (09:42→17:05)
[2018-12-31] MEDS: ZINC SULFATE 220 MG CAP PEG SCH ×2 (09:42→17:05)
[2018-12-31] MEDS: SENNA-S TABLET PEG SCH ×2 (09:42→17:05)
[2018-12-31] MEDS: LACTULOSE SYRUP 20 GM/30 ML UDC PO SCH ×2 (09:42→17:05)
[2018-12-31] MEDS: ASCORBIC ACID 500 MG TAB PEG SCH ×2 (09:42→17:05)
[2018-12-31] MEDS ORDERED: SODIUM CHLORIDE 0.9% 1000ML 1,000 ML IV ONE (10:00)
[2018-12-31] MEDS: BALSAM PERU/CASTOR OIL 60 GM OINT...G. TP SCH (10:20)
[2018-12-31] MEDS: KETOCONAZOLE 2% SHAMPOO 4OZ BTL TOP SCH (10:20)
[2018-12-31] MEDS: VANCOMYCIN 1GM/NS 250 ML 250 ML IV SCH (17:05)
--- NOTE | 2018-12-31 20:00 | NUR ---
Received change of shift report from AM nurse. Rounds completed.
[2018-12-31] MEDS: ATORVASTATIN 40 MG TAB PEG SCH (21:00)
[2019-01-01] VITALS (7 sets, daily range): BP systolic 95–138; BP diastolic 50–66
--- NOTE | 2019-01-01 02:08 | NUR ---
Patient in bed AAOx1. Resting quitly at this time. Patient turned q 2hours and PRN. Patient tolerated TF with little residuals noted.
[2019-01-01] MEDS: MEROPENEM 500MG/ NS 50ML BAG IV SCH ×3 (06:00→22:00)
[2019-01-01 06:39] LABS: BASOPHILS # (AUTO) 0.1 (0.0-0.1); BASOPHILS % 0.3 % (0.0-1.0); EOSINOPHILS # (AUTO) 0.1 (0.0-0.4); EOSINOPHILS % 0.5 % (0.0-6.0); HEMATOCRIT 27.7 % (34.2-44.1); HEMOGLOBIN 8.6 g/dL (12.0-16.0); LYMPHOCYTES # (AUTO) 1.2 (1.0-3.2); LYMPHOCYTES % 5.3 % (18.0-39.1); MEAN CORPUSCULAR HEMOGLOBIN 29.4 pg (28-32); MEAN CORPUSCULAR VOLUME 94.5 fL (81-99); MONOCYTES % 4.5 % (4.4-11.3); NEUTROPHILS # (AUTO) 20.4 (2.1-6.9); NEUTROPHILS % 88.3 % (38.7-80.0); PLATELET COUNT 297 x10e3/uL (140-360); RED BLOOD COUNT 2.93 x10e6/uL (3.6-5.1); RED CELL DISTRIBUTION WIDTH 14.8 % (11.7-14.4)
[2019-01-01 06:58] LABS: ANION GAP 12.9 mmol/L (8-16); BLOOD UREA NITROGEN 16 mg/dL (7-26); BUN/CREATININE RATIO 29 (6-25); CALCIUM 7.6 mg/dL (8.4-10.2); CARBON DIOXIDE 28 mmol/L (22-29); CHLORIDE 95 mmol/L (98-107); CREATININE, SERUM 0.55 mg/dL (0.57-1.11); EST GLOMERULAR FILTRATION RATE > 60 ML/MIN (60-); GLUCOSE 152 mg/dL (74-118); MAGNESIUM 1.8 MG/DL (1.3-2.1); POTASSIUM 3.9 mmol/L (3.5-5.1); SODIUM 132 mmol/L (136-145)
--- NOTE | 2019-01-01 07:02 | NUR ---
Received patient mid fowlers position, side rails upx2, call light within reach. Resting with eyes closed. Respirations even and unlabored. Jevity 1.2 at 50ml/hr with free water 20ml/hr. No residual noted. Will continue to monitor.
[2019-01-01] MEDS: BALSAM PERU/CASTOR OIL 60 GM OINT...G. TP SCH (07:30)
[2019-01-01] MEDS: KETOCONAZOLE 2% SHAMPOO 4OZ BTL TOP SCH (07:30)
[2019-01-01] MEDS: DOCUSATE SODIUM LIQD 100 MG/10 ML UDC PEG SCH ×2 (08:30→17:33)
[2019-01-01] MEDS: PANTOPRAZOLE 40 MG 10ML VIAL IV SCH ×2 (08:30→17:33)
[2019-01-01] MEDS: SILVER SULFADIAZINE 50GM CREAM TOP SCH (09:00)
[2019-01-01] MEDS: METOPROLOL TARTRATE 25 MG TAB PEG SCH ×2 (09:00→17:33)
[2019-01-01] MEDS: POLYETHYLENE GLYCOL 3350 17 GM PACK PEG SCH ×2 (09:30→17:33)
[2019-01-01] MEDS: CARBIDOPA/LEVODOPA 25/250 TAB PEG SCH ×3 (09:30→21:00)
[2019-01-01] MEDS: NYSTATIN 100,000 UNITS/GM CRM 30GM TUBE TOP SCH ×2 (09:30→17:16)
[2019-01-01] MEDS: LINACLOTIDE 145 MCG CAPSULE PO SCH (09:30)
[2019-01-01] MEDS: SENNA-S TABLET PEG SCH ×2 (09:30→17:33)
[2019-01-01] MEDS: ASCORBIC ACID 500 MG TAB PEG SCH ×2 (09:30→17:33)
[2019-01-01] MEDS: FLUCONAZOLE 200 MG/100 ML 100 ML IV SCH (09:30)
[2019-01-01] MEDS: ZINC SULFATE 220 MG CAP PEG SCH ×2 (09:30→17:34)
[2019-01-01] MEDS: FERROUS SULFATE 300 MG/5 ML LIQD GT SCH ×2 (09:30→17:33)
[2019-01-01] MEDS: LACTULOSE SYRUP 20 GM/30 ML UDC PO SCH ×2 (09:30→17:34)
[2019-01-01] MEDS: MULTIVITAMINS/MINERALS TAB PEG SCH (09:30)
[2019-01-01] MEDS: OYST-CAL-D 500MG TABLET PEG SCH ×2 (09:30→17:33)
--- NOTE | 2019-01-01 09:30 | NUR ---
Deborah Cheney NP aware of T.100.0. No new orders
--- NOTE | 2019-01-01 10:00 | NUR ---
TF increased to 55ml/hr as ordered. No residual noted.
[2019-01-01] MEDS: MAGNESIUM OXIDE 400 MG TAB PO SCH (17:34)
[2019-01-01] MEDS: VANCOMYCIN 1GM/NS 250 ML 250 ML IV SCH (17:34)
--- NOTE | 2019-01-01 19:15 | NUR ---
Report given to oncoming nurse of patient's status. Resting in bed. No s/s of acute distress noted.
[2019-01-01] MEDS: ATORVASTATIN 40 MG TAB PEG SCH (21:00)
[2019-01-02] VITALS: BP 113/57
--- NOTE | 2019-01-02 | NUR ---
Patient repositioned in bed q2 hours and PRN. Meds applied to rash as ordered by MD. Patient quit in bed with no noted pain or discomfort at this time.
[2019-01-02 04:00] VITALS: BP 111/55
[2019-01-02 05:10] LABS: BASOPHILS % 0.2 % (0.0-1.0); EOSINOPHILS # (AUTO) 0.2 (0.0-0.4); EOSINOPHILS % 0.7 % (0.0-6.0); HEMATOCRIT 26.1 % (34.2-44.1); HEMOGLOBIN 8.5 g/dL (12.0-16.0); LYMPHOCYTES # (AUTO) 1.4 (1.0-3.2); LYMPHOCYTES % 6.5 % (18.0-39.1); MEAN CORPUSCULAR HGB CONC 32.6 g/dL (31-35); MEAN CORPUSCULAR VOLUME 92.2 fL (81-99); MONOCYTES # (AUTO) 1.1 (0.2-0.8); MONOCYTES % 5.1 % (4.4-11.3); NEUTROPHILS # (AUTO) 18.7 (2.1-6.9); NEUTROPHILS % 86.6 % (38.7-80.0); PLATELET COUNT 367 x10e3/uL (140-360); RED BLOOD COUNT 2.83 x10e6/uL (3.6-5.1); RED CELL DISTRIBUTION WIDTH 14.7 % (11.7-14.4)
[2019-01-02 05:28] LABS: ANION GAP 9.9 mmol/L (8-16); BLOOD UREA NITROGEN 13 mg/dL (7-26); BUN/CREATININE RATIO 25 (6-25); CALCIUM 7.7 mg/dL (8.4-10.2); CARBON DIOXIDE 32 mmol/L (22-29); CHLORIDE 96 mmol/L (98-107); CREATININE, SERUM 0.52 mg/dL (0.57-1.11); EST GLOMERULAR FILTRATION RATE > 60 ML/MIN (60-); GLUCOSE 136 mg/dL (74-118); MAGNESIUM 1.7 MG/DL (1.3-2.1); POTASSIUM 3.9 mmol/L (3.5-5.1); SODIUM 134 mmol/L (136-145)
[2019-01-02] MEDS: MEROPENEM 500MG/ NS 50ML BAG IV SCH (06:00)
--- NOTE | 2019-01-02 07:10 | NUR ---
RCD PT AT BED PT IS CONFUSED FAMILY AT BED SIDE ASSESSMENT DONE PT RESTING ON BED PEG TUBE FEED RUNNING,IV PATENT BED LOW AND LOCKED CALL LIGHT IN REACH
[2019-01-02] MEDS: LINACLOTIDE 145 MCG CAPSULE PO SCH (07:30)
--- NOTE | 2019-01-02 07:30 | NUR ---
FOOT PUMP ON BOTH FEETS
[2019-01-02 07:57] VITALS: BP 107/53
[2019-01-02 09:00] VITALS: BP 107/53
[2019-01-02] MEDS: KETOCONAZOLE 2% SHAMPOO 4OZ BTL TOP SCH (09:00)
[2019-01-02] MEDS: PANTOPRAZOLE 40 MG 10ML VIAL IV SCH ×2 (09:00→17:00)
[2019-01-02] MEDS: MAGNESIUM OXIDE 400 MG TAB PO SCH ×2 (09:00→17:00)
[2019-01-02] MEDS: BALSAM PERU/CASTOR OIL 60 GM OINT...G. TP SCH (09:00)
[2019-01-02] MEDS: ZINC SULFATE 220 MG CAP PEG SCH ×2 (09:00→17:00)
[2019-01-02] MEDS: SILVER SULFADIAZINE 50GM CREAM TOP SCH (09:00)
[2019-01-02] MEDS: SENNA-S TABLET PEG SCH ×2 (09:00→17:00)
[2019-01-02] MEDS: CARBIDOPA/LEVODOPA 25/250 TAB PEG SCH ×2 (09:00→15:00)
[2019-01-02] MEDS: POLYETHYLENE GLYCOL 3350 17 GM PACK PEG SCH ×2 (09:00→17:00)
[2019-01-02] MEDS: FERROUS SULFATE 300 MG/5 ML LIQD GT SCH ×2 (09:00→17:00)
[2019-01-02] MEDS: LACTULOSE SYRUP 20 GM/30 ML UDC PO SCH ×2 (09:00→17:00)
[2019-01-02] MEDS: NYSTATIN 100,000 UNITS/GM CRM 30GM TUBE TOP SCH ×2 (09:00→17:00)
[2019-01-02] MEDS: FLUCONAZOLE 200 MG/100 ML 100 ML IV SCH (09:00)
[2019-01-02] MEDS: DOCUSATE SODIUM LIQD 100 MG/10 ML UDC PEG SCH ×2 (09:00→17:00)
[2019-01-02] MEDS: MULTIVITAMINS/MINERALS TAB PEG SCH (09:00)
[2019-01-02] MEDS: ASCORBIC ACID 500 MG TAB PEG SCH ×2 (09:00→17:00)
[2019-01-02] MEDS: METOPROLOL TARTRATE 25 MG TAB PEG SCH ×2 (09:00→17:00)
[2019-01-02] MEDS: OYST-CAL-D 500MG TABLET PEG SCH ×2 (09:00→17:00)
--- NOTE | 2019-01-02 09:48 | NUR ---
Spoke with pt's daughter Sasha Summers at bedside. She stated the family wants pt to return to [facility] [place]. CM called and spoke to Priti with admissions at [facility] [place]. Pt will return under [facility] and they will be able to provide iv abx and wound vac. She stated pt can return anytime we are ready to discharge her. CM will send additional clinicals. Pending ID recommendation for IV abx for discharge.
--- NOTE | 2019-01-02 10:00 | NUR ---
WOUND VAC REMOVED BY MOHINI GUTIERREZ AND APPLIED MAXORB DRESSING
[2019-01-02] MEDS: ACETAMINOPHEN/CODEINE 300MG - 30MG TAB PEG PRN (10:40)
[2019-01-02] MEDS ORDERED: LINEZOLID 600 MG/D5W 300ML 300 ML IV SCH ×2 (11:45→23:45)
[2019-01-02 12:09] VITALS: BP 109/60
--- NOTE | 2019-01-02 13:24 | NUR ---
Received call from Priti with [facility] that they are unable to give pt Zyvox and Ceftazidime due to cost. Reached out to Dr. Solorio for possible antibiotic change.
[2019-01-02] MEDS ORDERED: CEFTAZIDIME SOD 1 GM/NS 50ML 50 ML IV SCH (14:00)
[2019-01-02] MEDS ORDERED: CEFTAZIDIME 1 GM VIAL IV SCH (14:00)
--- NOTE | 2019-01-02 15:24 | NUR ---
Per Dr. Solorio, ok to change antibiotic to Rocephin 2gm IV q24h. CM called and spoke with Priti. They will be able to administer both Zyvox and Rocephin and that pt can discharge back there today. She will return to her room. RTF already at nurses station.
[2019-01-02] MEDS ORDERED: CEFTRIAXONE SOD 2 GM/NS 100 ML 100 ML IV SCH (16:00)
--- NOTE | 2019-01-02 16:17 | NUR ---
Called pt's daughter Kaye Cruz and informed her of discharge for today. Explained IMM letter. She verbalized understanding. Signed copy placed in chart. Copy left at pt's bedside. Ms. Cruz stated she will update her sister on discharge for today.
[2019-01-02 17:02] VITALS: BP 106/59
--- NOTE | 2019-01-02 17:13 | NUR ---
A/C TO TRAFFIC RATE CLERK PT ACCEPTED BY [facility] COHEN NP TO GET DISCHARGE ORDER AND LEFT MESSAGE
[2019-01-02] MEDS ORDERED: Ferrous Sulfate GT (17:44)
[2019-01-02] MEDS ORDERED: ZINC SULFATE220 M1 PEG (17:44)
[2019-01-02] MEDS ORDERED: MAGNESIUM OXID400 MG PO (17:44)
[2019-01-02] MEDS ORDERED: Multivitamins/Minerals PEG (17:44)
[2019-01-02] MEDS ORDERED: ASCORBIC ACID500 MG PEG (17:44)
--- NOTE | 2019-01-02 17:47 | NUR ---
PAGED AND TALKED DR FINN REGARDING DISCHARGE GOT THE DISCHARGE ORDER
[2019-01-02] MEDS ORDERED: CEFTRIAXON2 GM/50 ML IVP (17:49)
[2019-01-02] MEDS ORDERED: ZYVOX600 MG/300 IV (17:49)
--- NOTE | 2019-01-02 18:30 | NUR ---
[facility] REFUSE TO TAKE THE REPORT NOTIFIED THE REHABILITATION MANAGER SHE TALKED TO THEM AFTER GAVE THE REPORT
--- NOTE | 2019-01-02 18:40 | NUR ---
REPORT GIVEN TO ADELINA HAMM
--- NOTE | 2019-01-02 19:00 | NUR ---
PT RESTING ON BED BED SIDE REPORT GIVEN TO ONCOMING NURSE
--- NOTE | 2019-01-03 05:21 | Discharge Summary ---
DISCHARGE DIAGNOSES: 1. Urinary tract infection with Kamila with sepsis. 2. Multiple wounds with sepsis, present on admission. 3. Anemia. 4. Bilateral lower extremity and left upper extremity edema. 5. History of dementia, Alzheimer's and contractures of bilateral lower extremities. 6. Chronic constipation. 7. Hypertension. 8. Hyperlipidemia. DISCHARGE DIAGNOSES: 1. Urinary tract infection with Kamila with sepsis. 2. Multiple wounds with sepsis, present on admission. 3. Anemia. 4. Bilateral lower extremity and left upper extremity edema. 5. History of dementia, Alzheimer's and contractures of bilateral lower extremities. 6. Chronic constipation. 7. Hypertension. 8. Hyperlipidemia. 9. Debridement of sacral and left hip wound. Rule out osteomyelitis of the sacrum. 10. Candiduria. 11. Methicillin-resistant Staphylococcus aureus, vancomycin-resistant Enterococcus and Pseudomonas and Acinetobacter of the wound. 12. Rule out flu, rule out strep, rule out gastrointestinal bleed. HISTORY: The patient has a history of dementia, Parkinson disease, hypertension, hyperlipidemia, GERD, chronic constipation, UTI with ESBL, skin cancer, and chronic systolic CHF. SURGICAL HISTORY: Biopsy of the nose for skin cancer. FAMILY HISTORY: The patient's sister and brother have diabetes. The patient's brothers have cancer. SOCIAL HISTORY: Noncontributory. HOSPITAL COURSE: 83-year-old female from [facility], admitted, once the rounding MD noticed worsening of the sacral and left ischial wounds. The patient also had a fever yesterday, but family unaware of an exact number. They have also noticed bilateral foot and left hand edema over the last week. Upon admission to the ER, her hemoglobin was 6.6, and she received 2 units of PRBCs. Family is not aware of any melena. History and HPI per two daughters at bedside, as the patient is unable to tell me anything. On admission, the patient had a chest x-ray, which showed borderline cardiomegaly without vascular decompensation. CT of the brain showed no acute abnormalities. Flu is negative, GI bleeds negative, and strep is negative. Urine culture showed Kamila. Wound culture showed ESBL VRE, MRSA, Pseudomonas and Acinetobacter. ID was consulted. The patient was placed on fluconazole, Vanco and Merrem inpatient. Surgery was consulted for debridement. The patient had a debridement of the sacral and left ischial wounds. A wound VAC was placed per inpatient wound care. The patient will now discharge [facility] with 4 more weeks of 2 g Rocephin daily and Zyvox 600 mg q.12 IV. She will keep the wound VAC IV and Miner in place at the time of discharge. Family understands discharge instructions and agrees to plan. Vital signs are stable, the patient is afebrile. Dictated by Deborah Cheney NP Titus Salinas MD KIRILL/MODL /[id number]
[2019-01-03] MEDS ORDERED: ZYVOX600 MG/300 IV (08:13)
[2019-01-03] MEDS ORDERED: ROCEPHIN IV (08:13)
[2019-01-03] MEDS ORDERED: CEFTRIAXONE SOD 2 GM/NS 100 ML 100 ML IV SCH (09:00)
--- NOTE | 2019-01-05 12:39 | Consultation ---
DATE OF CONSULTATION: 12/30/2018 REASON FOR CONSULTATION: The patient has decubitus ulcer, osteomyelitis. Recommendation, antibiotic. HISTORY OF PRESENT ILLNESS: This patient who is a 89-year-old white Latin-Angolan female with history of Alzheimer's and history of dementia. The patient had a decubitus ulcer on his sacral area and the hip, stage 4. The patient also has history of anemia, history of chronic constipation, comes into the hospital with infected decubitus ulcer. The patient underwent debridement by Dr. Feliz on December 29, 2018. She had a necrotic ulcer on the sacral and the left ischial area and underwent excisional debridement including skin, subcutaneous tissue, and muscle 100 sq cm. Infectious Disease was asked to see the patient to make recommendation in terms of antibiotic. The patient does not really provide any meaningful information. The patient also history of atrial fibrillation. She states she is comfortable with the skilled care facility. She does have a chronic Miner catheter. There is no family for me to review, but I have records since admission, also records from skilled care which also reviewed. Also reviewed her medication list here. Time spent reviewing the record and seeing the patient and looking at cultures, and laboratory data took 60 minutes. Her laboratory data reviewed. Her wound culture showing gram-negative rods Staph aureus. Her white count is 11.5. Her hemoglobin is 6.6. Her sodium 135, potassium 3.8 and creatinine 0.5. MEDICATION LIST: She is on MiraLax, lactulose, multivitamin, zinc oxide, fluconazole, Tylenol and Desyrel. REVIEW OF SYSTEMS: Very hard to obtain from this patient, but discussed with the nursing team, there are no issues. There is no seizure and no swelling in any joint. No skin rash. SOCIAL HISTORY: From a assisted, no smoking, drug abuse, or alcohol abuse. FAMILY HISTORY: Could not be obtained. REVIEW OF SYSTEMS: Could not be obtained. PHYSICAL EXAMINATION: GENERAL: She is a cachectic patient. HEENT: Normocephalic, not icteric. NECK: Supple. CHEST: Few crackles bilateral. COR: S1 and S2. No S3, S4, or murmur. ABDOMEN: Soft. Bowel sounds present. EXTREMITIES: No edema. SKIN: No rash. The packing looks clean, but is deep as mentioned above. IMPRESSION: 1. Decubitus ulcer, stage 4. We will treat his osteomyelitis, it is deep all the way to the bone. Agree with nutritional support and the patient has malnutrition on arrival. We will put on meropenem and vancomycin, would need to follow vancomycin trough. We will need biweekly CBC, chemistry panel. I would also recommend to obtain a sedimentation rate and C-reactive protein now and follow up in four weeks. 2. Dementia. 3. Anemia, acute and chronic. Internal Medicine is following. I am not sure if the patient had GI workup. 4. Malnutrition. Continue with nutritional support, chronic Miner, debility. 5. We will follow. MD ELODIA Batres/MARITA /[id number]
== END 2019-01-02 19:33 | DRG 853 ==
LOC: ER 14:11 → ERHOLD 17:21 → IMCU 21:38 → MED/SURG2 12-27 20:26
PROVIDERS: ADMIT Internal Medicine; ATTEND Internal Medicine
PROC: 30233N1 Transfusion of Nonautologous Red Blood Cells into Peripheral Vein, Percutaneous Approach (ICD-10-PCS; principal; 2018-12-26)
PROC: 30233N1 Transfusion of Nonautologous Red Blood Cells into Peripheral Vein, Percutaneous Approach (ICD-10-PCS; 2018-12-27)
PROC: 0KBP0ZZ Excision of Left Hip Muscle, Open Approach (ICD-10-PCS; 2018-12-29)
DX: A41.9 Sepsis, unspecified organism (principal); I50.23 Acute on chronic systolic (congestive) heart failure; N39.0 Urinary tract infection, site not specified; G30.9 Alzheimer's disease, unspecified; F02.80 Dementia in other diseases classified elsewhere, unspecified severity, without behavioral disturbance, psychotic disturbance, mood disturbance, and anxiety; M24.50 Contracture, unspecified joint; I11.0 Hypertensive heart disease with heart failure
CPT/HCPCS: 36415; 70450; 71045; 72220; 74230; 80048; 80053; 80202; 81001; 82270; 82550; 82553; 82607; 82728; 82746; 83518; 83540; 83605; 83735; 83880; 84466; 84484; 85025; 85610; 85730; 86850; 86900; 86920; 87040; 87070; 87071; 87086; 87186; 87205; 87400; 88304; 93005; 93306; 93970; 93971; 97139; 97606; 99284; J0696; J0713; J1450; J1940; J2001; J2020; J2185; J2405; J3370; J7030; J7050; P9016